=== PATIENT | female | born 1970 | race African-American/Black ===

== ENCOUNTER → 2021-03-13 13:56 | Outpatient (CLI) | payer OTHER, SELFPAY ==
--- NOTE | ~2021-03-13 | MM_ITS ---
EXAMINATION: MM screening oral BI w ana HISTORY: Screening TECHNIQUE: Craniocaudal and mediolateral oblique 3-D tomosynthesis images were obtained and synthetic 2-D images were generated. CAD analysis was submitted and interpreted. COMPARISON: No prior mammogram is available for comparison at this institution. BREAST PARENCHYMAL COMPOSITION: The breasts are heterogenously dense, which may obscure small masses. FINDINGS: There bilateral breast asymmetries centered in the upper outer quadrants. There are no suspicious calcifications or skin thickening. IMPRESSION: 1. Scattered bilateral nodular asymmetries primarily centered in the upper outer quadrants. 2. Additional mammographic views and possible breast ultrasound are recommended. BI-RADS Category 0: Incomplete: Needs additional imaging evaluation. Reviewed, dictated and finalized at location A. IMPRESSION: 1. Scattered bilateral nodular asymmetries primarily centered in the upper oute r quadrants. 2. Additional mammographic views and possible breast ultrasound are recommended . BI-RADS Category 0: Incomplete: Needs additional imaging evaluation.
== END ==
PROVIDERS: PCP Family Medicine; Visit Provider Family Medicine
DX: Z12.31 Encounter for screening mammogram for malignant neoplasm of breast (principal); R92.8 Other abnormal and inconclusive findings on diagnostic imaging of breast
CPT/HCPCS: 77063; 77067

== ENCOUNTER → 2021-04-10 08:00 | Outpatient (CLI) | payer OTHER, SELFPAY ==
--- NOTE | ~2021-04-10 | MMUS_ITS ---
EXAMINATION: MM diagnostic mammo BI, US breast BI limited HISTORY: Bilateral breast asymmetries on baseline screening mammogram TECHNIQUE: Additional 3-D tomosynthesis images of the breasts were performed and synthetic 2-D images were generated. CAD analysis was submitted and interpreted. High resolution limited bilateral breast ultrasound was performed. COMPARISON: 03/13/2021 BREAST PARENCHYMAL COMPOSITION: The breasts are heterogeneously dense, which may obscure small masses . FINDINGS: MAMMOGRAPHIC FINDINGS: Left breast: There is a 10 mm oval, obscured, equal density mass in the middle third of the outer charles ast at the 2:00 location 5 cm from the nipple. No suspicious calcification or architectural distortio n are identified. Right breast: There is no evidence of suspicious mass, calcification, or architectural distortion to suggest malignancy. ULTRASOUND: Left breast: There is an 8 mm x 4 mm oval, circumscribed, parallel, hypoechoic mass with no posterior features or internal vascularity at the 2:00 location 3 cm from the nipple. Right breast: No suspicious cystic or solid mass is identified in the area questioned on screening ma mmogram. IMPRESSION: 1. Probably benign left breast mass. 2. Recommend 6 month follow-up left diagnostic mammogram and ultrasound. BI-RADS category 3, probably benign findings. Reviewed, dictated and finalized at location A. IMPRESSION: 1. Probably benign left breast mass. 2. Recommend 6 month follow-up left diagnostic mammogram and ultrasound. BI-RADS category 3, probably benign findings.
== END ==
PROVIDERS: PCP Family Medicine; Visit Provider Family Medicine
DX: R92.8 Other abnormal and inconclusive findings on diagnostic imaging of breast (principal)
CPT/HCPCS: 76642; 77066

== ENCOUNTER 2021-04-15 14:51 | Outpatient (CLI) | payer OTHER, SELFPAY ==
[2021-04-15 15:13] LABS: Hematocrit 41.4 % (37.0-47.0); Hemoglobin 12.4 g/dL (12.0-15.0); Immature Platelet Fraction Pct 1.7 % (0.9-11.2); Mean Corpuscular Hemoglobin 22.8 pg (26-34); Platelet Count Result 369 k/mm3 (150-375); Red Blood Count 5.45 M/mm3 (4.2-5.4); White Blood Count 4.5 K/mm3 (4.5-10.0)
== END 2021-04-15 14:52 | disposition home or self-care (01) ==
LOC: ANHLAB 14:55
PROVIDERS: PCP Family Medicine; Visit Provider Obstetrics & Gynecology
DX: N93.9 Abnormal uterine and vaginal bleeding, unspecified (principal)
CPT/HCPCS: 36415; 84443; 85027; 85055

== ENCOUNTER → 2021-05-03 02:35 | Outpatient (CLI) | payer OTHER, SELFPAY ==
[2021-05-03 17:20] LABS: SARS-CoV-2 RNA PCR Negative
== END ==
PROVIDERS: PCP Family Medicine; Visit Provider Obstetrics & Gynecology
DX: Z01.812 Encounter for preprocedural laboratory examination (principal); Z20.822 Contact with and (suspected) exposure to COVID-19
CPT/HCPCS: C9803; U0003; U0005

== ENCOUNTER 2021-05-07 07:00 | Inpatient (IN) | payer OTHER, SELFPAY ==
[2021-04-30 15:49] VITALS: BMI 24.3
--- NOTE | 2021-05-03 09:59 | PM.IMHP ---
H&P: HPI History of Present Illness Date/Time: 05/03/21 09:59 Periods Q25-34 days X 7-12 days with cramping on menses and known fibroids Chief Complaint: Menorrhagia, fibroids Review of Systems Review of Systems: All systems reviewed & are unremarkable except as noted in HPI and below PMFSH Past Medical History Medical History x1 Allergic asthma Anemia Fibroids, intramural Migraine Vaginal delivery x1 Surgical History Surgical History [place] teeth extracted 2015 Family History Family History Mother Acute myocardial infarction Hypertension Asthma Heart problem Father Family history of malignant neoplasm Patient's father is Cerebrovascular accident Heart disease Hypertension Sibling Diabetes mellitus Heart problem Daughter Asthma Grandparent Diabetes mellitus Hypertension Heart problem Social History Social History Social History: Smoking status: Never smoker Second hand tobacco smoke exposure: No Alcohol intake: current Alcohol use details: seldomly 6-7 per year maybe Substance use: never Substance use type: does not use Gender identity (if verbalized by the patient): Female Spiritual care concerns: No Meds Home Medications and Allergies Home Medications Medication Instructions Recorded Confirmed Type albuterol sulfate 90 mcg/actuation 1 inh INHALATION Q4H PRN #8.5 g 02/07/21 04/30/21 Rx aerosol inhaler cetirizine 10 mg tablet 10 mg PO HS 02/07/21 04/30/21 History azelastine 137 mcg (0.1 %) nasal 137 mcg INTRANASAL Q12H PRN ml 04/15/21 04/30/21 History spray aerosol acetaminophen [Tylenol Extra 500 mg PO Q6H PRN 04/30/21 04/30/21 History Strength] ferrous sulfate [Iron (ferrous 325 mg PO BID 04/30/21 04/30/21 History sulfate)] montelukast 10 mg PO HS 04/30/21 04/30/21 History Allergies Allergy/AdvReac Type Severity Reaction Status Date / Time shellfish derived Allergy Severe Anaphylaxis Verified 04/30/21 15:38 Exam Const: General: healthy appearing, no acute distress, well developed, alert and awake Resp: Auscultation: clear to auscultation bilaterally Cardio: Rate: regular rate Rhythm: regular rhythm GI: Inspection: non-distended GI Palp: Yes Soft to palpation and No Tenderness to palpation present (GI) : Bimanual exam- vagina & uterus: uterine shape normal, non-tender, enlarged and soft Bimanual Exam- Adnexa, other: normal adnexae, no masses and No adnexal tenderness Extrem: General: no pedal edema and no calf tenderness Psych: Mental Status: mental status grossly normal Assessment and Plan Assessment and plan (1) Menorrhagia: Code(s): N92.0 - Excessive and frequent menstruation with regular cycle Status: Acute Assessment and Plan: We discussed options, and she opted and signed consent for TLH/BSO after risks, benefits, complications, and alternatives discussed. She expressed understanding and wishes to proceed (2) Leiomyoma: Code(s): D21.9 - Benign neoplasm of connective and other soft tissue, unspecified Status: Acute
[2021-05-06] VITALS (17 sets, daily range): BP systolic 99–132; BP diastolic 46–73; PULSE 55–71; RESP 14–20; TEMP 36.1–36.6; O2SAT 96–100; BMI 24.6
--- NOTE | 2021-05-06 10:58 | P.PNAN_ITS ---
Anes - Initial Pre Proc Eval Procedure: Operation Date: 05/06/21 12:00 Proposed Procedures p Total Laparoscopic Hysterectomy, with Bilateral Salpingo Oophorectomy - Opal Florence MD Date/Time: 05/06/21 10:58 Surgeon: Opal Florence MD Pre Op Diagnosis: menorrhagia, fibroids, anemia Patient Data Age: 50 Gender: F Height: 1.73 m Weight: 72.57 kg Allergies Allergy/AdvReac Type Severity Reaction Status Date / Time shellfish derived Allergy Severe Anaphylaxis Verified 04/30/21 15:38 Home Medications Medication Instructions Recorded Confirmed Type albuterol sulfate 90 mcg/actuation 1 inh INHALATION Q4H PRN #8.5 g 02/07/21 04/30/21 Rx aerosol inhaler cetirizine 10 mg tablet 10 mg PO HS 02/07/21 04/30/21 History azelastine 137 mcg (0.1 %) nasal 137 mcg INTRANASAL Q12H PRN ml 04/15/21 04/30/21 History spray aerosol acetaminophen [Tylenol Extra 500 mg PO Q6H PRN 04/30/21 04/30/21 History Strength] ferrous sulfate [Iron (ferrous 325 mg PO BID 04/30/21 04/30/21 History sulfate)] montelukast 10 mg PO HS 04/30/21 04/30/21 History Patient hx anesthesia problems: none Family hx anesthesia problems: none PMFSH Past Medical History Medical History x1 Allergic asthma Anemia Fibroids, intramural Migraine Vaginal delivery x1 Surgical History Surgical History [place] teeth extracted 2015 Family History Family History Mother Acute myocardial infarction Hypertension Asthma Heart problem Father Family history of malignant neoplasm Patient's father is Cerebrovascular accident Heart disease Hypertension Sibling Diabetes mellitus Heart problem Daughter Asthma Grandparent Diabetes mellitus Hypertension Heart problem Social History Social History Social History: Smoking status: Never smoker Second hand tobacco smoke exposure: No Alcohol intake: current Alcohol use details: seldomly 6-7 per year maybe Substance use: never Substance use type: does not use Living arrangements: with family Gender identity (if verbalized by the patient): Female Spiritual care concerns: No Anes - Eval Final PreProcedure Day of Procedure 05/06/21 10:58 Patient weight: normal Heart: regular rate and rhythm Lungs: clear to auscultation and normal air movement Airway: Mallampati scale class II Neurological: alert and oriented Last oral intake: >/= 8 hours ASA classification: II Emergent: no Anesthetic plan: proceed Anesthesia type and monitoring: general LMA and standard monitoring Informed Consent: The patient's anesthetic plan and its attendant risks and benefits were discussed with the patient/family/POA. Questions were solicited and answers provided to the satisfaction of the patient/family/POA.
[2021-05-06] MEDS: LACTATED RINGERS 1,000 ML 30 ML IV CONT ×3 (11:17→19:05)
[2021-05-06] MEDS: ACETAMINOPHEN 500 MG TABLET 1000 MG PO (11:18)
[2021-05-06] MEDS: KETOROLAC 15 MG/ML VIAL (*BKC) IV PUSH (11:18)
--- NOTE | 2021-05-06 11:40 | WPDHPUPDATE1 ---
History and Physical Update Update Date/Time: 05/06/21 11:40 History and Physical has been reviewed, including an updated exam of the patient. There are NO changes in the patient's condition. Risks, benefits, and alternatives have been discussed and questions answered. Patient agrees to proceed with procedure.
[2021-05-06] MEDS: ceFAZolin 2 GM/D5W 50 ML 2 GM/50 ML BAG IVPB (12:00)
--- NOTE | 2021-05-06 12:15 | W.PM.PROC2 ---
Procedure Note - Detailed Date of Procedure 05/06/21 Pre-op Diagnosis menorrhagia, fibroids, anemia Post-op Diagnosis other (Menorrhagia, fibroids, anemia. Intraoperative rectal injury) Procedure Performed TLH/BSO by myself, repair of bowel injury by Dr. Ferguson Surgeon Opal Florence MD Anesthesia general Indications Heavy periods and fibroid uterus, h/o anemia Findings enlarged fibroid uterus, normal tubes/ovaries Description of Procedure She was taken to the operating room where general anesthesia was obtained. She was prepared and draped in the normal sterile fashion in the dorsal lithotomy position. Marcaine was injected infraumbilically. A 5 mm skin incision was made in the infraumbilical fold with a scalpel. A 5 mm non bladed trocar was then placed with the camera in the trocar under direct visualization. Insufflation was begun. She was placed in Trendelenburg. A 10 mm trocar was then placed under direct visualization into the right lower quadrant. A 5 mm trocar was placed in the left lower quadrant under direct visualization. Inspection of the pelvis revealed the findings as noted, most significantly large globular enlarged fibroid uterus. The right infundibulopelvic ligament was grasped coagulated and transected using the Harmonic scalpel. The mesial salpinx was serially clamped and transected. The round ligament on the right was transected. The bladder flap was created from the right side. Left infundibulopelvic pelvic ligament was then grasped coagulated and transected using the Harmonic scalpel. The mesosalpinx and round ligament on the left were then grasped and transected the bladder flap was created from the left meeting the flap from the right. The bladder was pushed down further with the laparoscopic Kittner. Several bites were taken down the broad ligament until the uterus uterine artery on the left side was skeletonized. The uterine artery was clamped coagulated and transected with excellent hemostasis visualized. Another couple bites were taken down the broad ligament until the level of the uterosacral ligament had been reached. The right uterine artery was then skeletonized clamped coagulated and transected. Another couple bites were taken down the broad ligament to the level of the uterosacral ligament had been reached. Both uterosacral ligaments were then divided. A sponge stick was placed in the vagina and placed in the anterior cul-de-sac. An anterior colpotomy incision was used with the Harmonic scalpel against the sponge stick. The vagina was then circumferentially incised, hugging against the cervix. Visualization was difficult on the backside of the cervix due to the large globular uterus, which was difficult to lift out of the way. Once the uterus was completely detached from the surrounding vaginal tissue, the cervix and uterus were pushed down as far as possible into the vaginal canal. Attention was then turned to the vagina. A speculum was placed in the vagina and the cervix was grasped with a single-tooth tenaculum. I was unable to pull the uterus through the vaginal opening due to its size. The uterus was then wedged in order to reduce the size. This was done twice in and then the uterus was delivered easily through the vagina. A moist blue towel was placed in the vagina to help hold the pneumoperitoneum. Attention was then turned back to the abdomen. The pelvis was copiously irrigated. All operative sites were inspected. There was noted to be a defect and just posterior to the vaginal cuff. Upon further closer inspection, there was noted to be a full thickness injury to the rectum. Immediate call was placed to General surgery on-call. While waiting for Dr. Ferguson, the vaginal cuff was sutured using 0 Vicryl interrupted [id number] sutures. A total of 3 sutures were used for reapproximation. Dr. Ferguson arrived and then took over the surgical management of this patient at this time. See
[2021-05-06] MEDS: BUPIVACAINE/EPINEPHRINE 0.5% 30 ML VIAL 50 ML INFILTRATE (12:36)
[2021-05-06] MEDS: metroNIDAZOLE 500 MG/ISO 100ML 500 MG/100 ML BAG 100 MG IVPB (15:31)
[2021-05-06] MEDS: ceFAZolin SODIUM 1 GM VIAL 2 GM IV PUSH (16:02)
--- NOTE | 2021-05-06 17:29 | W.PM.PROC2 ---
Procedure Note - Detailed Date of Procedure 05/06/21 Pre-op Diagnosis menorrhagia, fibroids, anemia, rectal injury Post-op Diagnosis same Procedure Performed Hand assisted laparoscopic low anterior resection with low pelvic anastomosis Surgeon Karri Ferguson DO Associate Professor Of Theatre Markus Pimentel MD Anesthesia general and local Indications This is a 50-year-old woman who I was asked to see intraoperatively for a bowel injury. She was undergoing a laparoscopic hysterectomy and a rectal injury was identified by her chemical manager. I came in to evaluate patient and inspected laparoscopically and identified about a 4 cm injury along the anterior surface of the rectum. This appeared to be too small of an injury to repair primarily as it went more than group home around the entire circumference of the bowel. Decision was made to proceed with hand assisted laparoscopic low anterior resection with low pelvic anastomosis. Findings Ports were already placed and Dr. Florence had already completed the laparoscopic hysterectomy. I inspected the pelvis laparoscopically and identified a 4 cm injury the anterior surface of the rectum and could see into the lumen of the rectum. There did not appear to be any significant spillage of bowel contents or stool. The injury appeared to go more than group home around the circumference of the rectum, therefore I did not see any safe possibility for primary repair. I had to mobilize the rectum further and perform a low resection of the involved segment and perform a low pelvic colorectal anastomosis. The distal rectum appeared healthy and viable. There appeared to be about 4-6 cm of healthy rectum remaining after I was able to come across the rectum just below the injury with an echelon stapler. I did not have to resect much of the sigmoid colon as this was not for any colon pathology. But I mobilized the sigmoid colon far enough proximally to perform our resection and anastomosis. A 28 mm EEA stapler was utilized for the end-to-end anastomosis. The anastomotic rings were inspected and appeared circumferential. Rigid proctoscopy was performed and the anastomosis appeared healthy intraluminally. A leak test was then performed by filling the pelvis with saline and insufflating air into the rectum to dilate the anastomosis. No air bubbles were visualized leaking around the anastomosis. A 19 round Jack drain was placed in the pelvis through 1 of the 5 mm port sites to monitor for any signs of infection since her bowels were not prepped prior to this surgery. Description of Procedure Patient was already intubated and under general anesthesia. A 12 mm port was already placed in the right lower quadrant and another 5 mm port was in the infraumbilical region and left lower quadrant. I inspected the abdominal cavity laparoscopically and identified the rectal injury. I chose to convert to a hand assisted laparoscopic procedure. The 5 mm infraumbilical port was removed and this incision was extended inferiorly about 7 cm. Electrocautery was then used for hemostasis and for dissection down to the linea alba. The linea alba was then incised using electrocautery and the peritoneum was also entered using electrocautery. The wound protector and GelPort were then inserted and pneumoperitoneum was recreated. I did place another 5 mm port in the midline supra pubic region and another 5 mm port in the right upper quadrant. The patient was placed in Trendelenburg position and rotated to the right. The rectal injury was identified and the mesorectum was carefully dissected just posterior to this area. I carefully continued this dissection with Harmonic cami until I could dissect posteriorly far enough distal to the rectal injury. I then continued this dissection up along the side of the mesorectum and up to the healthy appearing rectum just distal to the injury. I dissected this on both sides so that I could isolate the rectum. There were also some an
--- NOTE | 2021-05-06 17:55 | SUR.PHASEI ---
CALLED DR WILLETT, 2 ORDERS, 1 STATES OB POST AND ANOTHER SAYS MED/SURG. SHE STATES PT TO GO TO OB 2D FLOOR
--- NOTE | 2021-05-06 18:08 | SUR.PHASEI ---
PT AROUSES EASILY TO VERBAL STIMULI. DENIES PAIN, DENIES NAUSEA AT THIS TIME HOB ELEVATED 30 DEGREES. MONITORING KASIA OUTPUT CLOSELY PER DR KIM INSTRUCTIONS.
[2021-05-06] MEDS: fentaNYL CITRATE INJ (*CRX) 100 MCG/2 ML VIAL 25 MCG IV PUSH ×4 (18:24→19:00)
--- NOTE | 2021-05-06 18:39 | SUR.PHASEI ---
PT AWAKENS EASILY. WAKING UP MORE NOW. STATES PAIN MILD-MODERATE. TOLERABLE. DR KIM NOTIFIED OF KASIA OUTPUT AND URINE OUTPUT AT THIS TIME.
--- NOTE | 2021-05-06 19:01 | SUR.PHASEI ---
1900; DR KIM NOTIFIED OF 35ML BLOODY DRAINAGE FROM KASIA OVER 1 HOUR.
[2021-05-06] MEDS: KETOROLAC 30 MG/ML VIAL (*BKC) IV PUSH (19:48)
[2021-05-06] MEDS: DEXTROSE 5%/LACTATED RINGERS 1,000 ML 125 ML IV CONT (19:48)
[2021-05-06] MEDS: ENOXAPARIN 40 MG/0.4 ML SYRINGE SUB-Q (21:20)
[2021-05-06] MEDS: MORPHINE SULFATE (*CRX) 4 MG/ML INJ IV PUSH (23:54)
[2021-05-06] MEDS: ONDANSETRON INJ 4 MG/2 ML VIAL IV PUSH (23:54)
[2021-05-07] VITALS: BP 104/57; PULSE 69; O2SAT 99
--- NOTE | ~2021-05-07 | CT_ITS ---
EXAMINATION: CT abdomen pelvis wo con DATE: 05/10/2021 09:48 INDICATION: Elevated serum creatinine. Status post hysterectomy. TECHNIQUE: Computed tomography (CT) of the abdomen and pelvis was performed without intravenous contr ast. Automated exposure control and iterative reconstruction technique were employed. Exam dose: 524 .25 mGy-cm total exam DLP. COMPARISON: 05/10/2021 portable KUB FINDINGS: There is bilateral lower lobe atelectasis. Minimal pleural effusions. Normal heart size. Trace pericardial effusion. The liver, gallbladder, bile ducts, spleen, pancreas, pancreatic duct and adrenal glands are unremark able on this limited noncontrast examination. No renal mass lesion is evident. No right urinary tract calculus or hydroureteronephrosis. No left urinary tract calculus is noted. There is mild left hydroureteronephrosis. There is some air within the bladder lumen. There is fluid around the urinary bladder; if there is co ncern for bladder leak, consider cystogram. Surgical drain is present in the left lower quadrant and pelvis. Status post hysterectomy. There is a suture line at the rectosigmoid area. There is a prominent amount of fecal material in the ascending colon and hepatic flexure and gaseous distention of the transverse colon. No intraperitone al free air. Normal caliber of the abdominal aorta. There is subcutaneous edema in the lower anterior pelvic wall extending into the external genitalia. Severe degenerative disc disease at L5-S1. No suspicious osteolytic or osteoblastic lesions are noted . IMPRESSION: Surgical drain in left lower quadrant and pelvis Fluid around the urinary bladder; if there is concern for bladder leak, consider cystogram Air in the urinary bladder lumen, likely due to recent instrumentation Suture line at rectosigmoid area; no bowel obstruction or intraperitoneal free air Bilateral lower lobe atelectasis and minimal pleural effusions Trace pericardial fluid Reviewed, dictated and finalized at [facility]. Reviewed, dictated and finalized at location [facility]. IMPRESSION: Surgical drain in left lower quadrant and pelvis Fluid around the urinary bladder; if there is concern for bladder leak, conside r cystogram Air in the urinary bladder lumen, likely due to recent instrumentation Suture line at rectosigmoid area; no bowel obstruction or intraperitoneal free air Bilateral lower lobe atelectasis and minimal pleural effusions Trace pericardial fluid
--- NOTE | ~2021-05-07 | CT_ITS ---
EXAMINATION: CT guide nephro tube pl LT DATE: 05/11/2021 15:11 INDICATION: Nephrostomy tube placement required for left ureteral injury. TECHNIQUE: The procedure including the risks and benefits was discussed with the patient. Risks discu ssed included bleeding and infection. The patient understood the risks and benefits and agreed to pro ceed. The patient was confirmed to be receiving appropriate antibiotic coverage. The skin overlying the left kidney was prepped and draped in usual sterile fashion. Anesthetic was administered with 1% lidocaine subcutaneously. 50 mcg of fentanyl was also provided for conscious sedation. An 18 gauge t rochar needle was inserted into a calyx of the left kidney under CT guidance. The needle was exchange d over a wire for 6 Grenadian, 8 Grenadian and 9 Grenadian dilators and then for an 8.5 Grenadian pigtail cathete r under CT guidance. The catheter was stitched to the skin. Antibiotic ointment and a sterile dressin g were applied. An additional adhesive fixation device was applied. 5 mm of mildly sanguinous urine w as aspirated and sent to the lab for Gram stain and cultures The dose-length product was 314.90 mGy-c m. There were no immediate complications. FINDINGS: CT images demonstrate the nephrostomy tube in the renal pelvis. IMPRESSION: 1. Successful CT-guided left nephrostomy tube placement]. Reviewed, dictated and finalized at location [facility].
--- NOTE | ~2021-05-07 | XR_ITS ---
EXAMINATION: XR abdomen/kub 1V DATE: 05/10/2021 08:44 INDICATION: Adynamic ileus. TECHNIQUE: A supine view of the abdomen on 2 radiographs was obtained. COMPARISON: None. FINDINGS: The colon is distended. There are dilated loops of small bowel. There is stool in the proxi mal colon. A surgical drain overlies the pelvis. IMPRESSION: 1. Dilated small and large bowel, likely postoperative adynamic ileus. Reviewed, dictated and finalized at location A.
--- NOTE | ~2021-05-07 | XR_ITS ---
EXAMINATION: XR retrograde pyelogram BI DATE: 05/10/2021 16:46 INDICATION: Ureteral injury TECHNIQUE: 145 images of the abdomen and pelvis were obtained during retrograde pyelogram performed martín Regalado. Radiologist was not present for the imaging or procedure. The amount of fluoroscopy ti me used during this procedure was 0.6 minutes. COMPARISON: None. FINDINGS: Initial image demonstrates a surgical drain in the pelvis. Retrograde contrast injections into the ri ght ureter demonstrates a normal right ureter and renal collecting system without evident filling def ects or strictures. Subsequent retrograde contrast injection into the left ureter demonstrates contra st extravasation occurring approximately 5 cm from the ureterovesicular junction with no contrast omid ling the more proximal left ureter or left renal collecting system. IMPRESSION: 1. Likely transection of the distal left ureter with contrast extravasation on retrograde urogram. Se e procedure note for further detail. Reviewed, dictated and finalized at location A. IMPRESSION: 1. Likely transection of the distal left ureter with contrast extravasation on retrograde urogram. See procedure note for further detail.
[2021-05-07] MEDS: DEXTROSE 5%/LACTATED RINGERS 1,000 ML 125 ML IV CONT (01:12)
[2021-05-07 04:00] VITALS: BP 94/56; PULSE 74; RESP 18; TEMP 36.6; O2SAT 99
[2021-05-07] MEDS: KETOROLAC 30 MG/ML VIAL (*BKC) IV PUSH (04:18)
--- NOTE | 2021-05-07 04:47 | PC.NURSE ---
Called dr Ferguson at 0436 due to low urine output, 300 ml in 9 hours, 350ml out of the KASIA drain and a decreased blood pressure of 94/56 HR 74. He stated to continue the fluids at 125ml/hour, and he will check labs in the AM to call if hgb is less than 7. Continue to monitor BP and HR and notify if any significant changes.
[2021-05-07 05:07] LABS: Basophils Absolute Auto 0.1 K/mm3 (0.0-0.1); Basophils Percent Auto 0.3 % (0.2-1.2); Eosinophils Absolute Auto 0.1 K/mm3 (0-0.3); Eosinophils Percent Auto 0.4 % (0-4.4); Hematocrit 31.6 % (37.0-47.0); Hemoglobin 10.1 g/dL (12.0-15.0); Immature Granulocyte Absolute 0.08 K/mm3 (0.00-0.031); Immature Granulocyte Percent A 0.5 % (0-0.5); Immature Platelet Fraction Pct 1.9 % (0.9-11.2); Lymphocytes Absolute Auto 0.56 K/mm3 (0.9-3.2); Lymphocytes Percent Auto 3.7 % (18.3-44.2); Mean Corpuscular Hemoglobin 25.7 pg (26-34); Mean Corpuscular Volume 80.4 fl (80-100); Monocytes Absolute Auto 0.9 K/mm3 (0.1-0.6); Monocytes Percent Auto 6.2 % (2.6-8.5); Neutrophils Absolute Auto 13.4 K/mm3 (1.3-6.7); Neutrophils Percent Auto 88.9 % (45.5-73.1); Platelet Count Result 246 k/mm3 (150-375); Red Blood Count 3.93 M/mm3 (4.2-5.4); Red Cell Distribution Width 26.9 % (11.5-14.5); White Blood Count 15.1 K/mm3 (4.5-10.0)
[2021-05-07 05:14] LABS: Anion Gap 9 mmol/L (8-16); Blood Urea Nitrogen 12 mg/dL (7-17); Calcium 8.4 mg/dL (8.4-10.2); Carbon Dioxide 23 mmol/L (22-30); Chloride 103 mmol/L (98-107); Estimated CRCL calculation 51 ml/min; Estimated Glomerular Filt Rate 58; Glucose 146 mg/dL (65-105); Potassium 4.4 mmol/L (3.4-5.0); Sodium 135 mmol/L (137-145)
[2021-05-07 06:10] LABS: Microcytosis 1+ (NORMAL); Ovalocytes 1+ (NORMAL); Platelet Estimate Adequate (Adequate)
[2021-05-07 06:11] LABS: Tear Drop Cells 1+ (NORMAL)
[2021-05-07] MEDS: MORPHINE SULFATE (*CRX) 4 MG/ML INJ IV PUSH (06:43)
[2021-05-07 06:45] VITALS: BP 102/64; PULSE 74; RESP 20; TEMP 37.2
[2021-05-07 07:30] VITALS: BP 95/52; PULSE 77; RESP 16; TEMP 37.1; O2SAT 97
--- NOTE | 2021-05-07 07:56 | WPDANESPN ---
Anes - Prog Note Post-Op Date/Time: 05/07/21 07:56 Cardiovascular status: normal Respiratory status: normal Airway patency: baseline Mental status: baseline Post-Op hydration status: normal Vital Signs: Last Vital Signs Temp 36.6 C 05/07/21 04:00 Pulse 74 05/07/21 04:00 Resp 18 05/07/21 04:00 BP 94/56 L 05/07/21 04:00 Pulse Ox 99 05/07/21 04:00 Pain Score (VAS): 0 I/O: Intake & Output 05/06/21 05/06/21 05/07/21 15:59 23:59 07:59 Intake Total 50 550 1050 Output Total 135 825 Balance 50 415 225 Laboratory Tests 05/07/21 04:04 05/07/21 04:04 05/07/21 05/07/21 04:04 04:04 WBC 15.1 H RBC 3.93 L Hgb 10.1 L Hct 31.6 L MCV 80.4 MCH 25.7 L MCHC 32.0 RDW 26.9 H Plt Count 246 MPV TNP Immature Gran % (Auto) 0.5 Neut % (Auto) 88.9 H Lymph % (Auto) 3.7 L Dillon % (Auto) 6.2 Eos % (Auto) 0.4 Baso % (Auto) 0.3 Lymph # (Auto) 0.56 L Dillon # (Auto) 0.9 H Eos # (Auto) 0.1 Baso # (Auto) 0.1 Abs Immat Gran (auto) 0.08 H Absolute Neuts (auto) 13.4 H Absolute Nucleated RBC 0.0 Nucleated RBC % 0.0 Platelet Estimate Adequate % Immature Plt Fraction 1.9 Microcytosis 1+ Tear Drop Cells 1+ Ovalocytes 1+ Sodium 135 L Potassium 4.4 Chloride 103 Carbon Dioxide 23 Anion Gap 9 BUN 12 Creatinine 1.20 H Estim Creat Clear Calc 51 Estimated GFR 58 L Glucose 146 H Calcium 8.4 Post-procedural complaints: none Patient Feedback: Patient satisfied with anesthetic care.
--- NOTE | 2021-05-07 07:59 | PM.GYNPNOP ---
SENIOR MANAGEMENT CONSULTANT - A/P Postoperative Procedures: Procedures Operation Date: 05/06/21 12:00 Actual Procedure Side Surgeon p Total Laparoscopic Hysterectomy, with Bilateral Salpingo Oophorectomy Not Applicable Opal Florence MD s Hand assist Laparoscopic Low anterior resection with low pelvic anastomosis Not Applicable Karri Ferguson DO Postoperative day: 1 (s/p hysterectomy) Postoperative status: doing well and other (Borderline urine output and slightly elevated creatinine. Continue IV fluids and repeat labs) Postoperative plan: routine post-op care and other (Appreciate input from Dr. Ferguson for advancement of diet / care for postop bowel repair and drain) Time Spent With Patient Time: Total time spent is greater than 50% in coordination of care (as documented) at patient's floor/unit and/or counseling patient: Time with patient: 15 - 25 minutes SENIOR MANAGEMENT CONSULTANT- PN:Subj Post-Op Subjective Date/time seen: 05/07/21 07:59 Subjective: patient has no complaints, pain is well controlled, patient is tolerating oral intake and other (Catheter in place. No flatus yet. Nausea last night, none since. No emesis) Exam Const: General: no acute distress Resp: Auscultation: clear to auscultation bilaterally Cardio: Rate: regular rate Rhythm: regular rhythm GI: Inspection: non-distended, incision (Intact without erythema, drainage, or induration) and other (Drain with moderate serosanguinous fluid) GI Palp: Yes abdominal tenderness (appropriate) and Yes Soft to palpation Auscultation: Hypoactive bowel sounds present Extrem: General: no edema SENIOR MANAGEMENT CONSULTANT - PN: Obj Data Vital Signs Vital Signs: Vital Signs - 24 hr 05/06/21 11:19 05/06/21 17:30 05/06/21 17:45 Temperature 36.6 C 36.2 C L 36.2 C L Pulse Rate 63 58 L 55 L Respiratory Rate 14 18 17 Blood Pressure 132/73 99/46 L 103/51 L Pulse Oximetry 100 100 100 05/06/21 18:00 05/06/21 18:15 05/06/21 18:30 Temperature 36.2 C L 36.4 C L Pulse Rate 56 L 55 L 58 L Respiratory Rate 18 16 14 Blood Pressure 100/55 L 105/53 L 105/60 Pulse Oximetry 100 100 100 05/06/21 18:45 05/06/21 19:01 05/06/21 19:16 Temperature Pulse Rate 60 58 L 60 Respiratory Rate 16 20 14 Blood Pressure 108/58 L 112/61 127/67 Pulse Oximetry 100 100 100 05/06/21 19:40 05/06/21 20:00 05/06/21 20:15 Temperature 36.1 C L 36.1 C L Pulse Rate 64 71 59 L Respiratory Rate 16 16 Blood Pressure 115/59 L 106/69 112/70 Pulse Oximetry 100 100 100 05/06/21 20:30 05/06/21 21:00 05/06/21 21:30 Temperature Pulse Rate 60 62 60 Respiratory Rate Blood Pressure 116/73 109/69 Pulse Oximetry 99 100 99 05/06/21 22:00 05/06/21 23:00 05/07/21 00:00 Temperature Pulse Rate 61 64 69 Respiratory Rate Blood Pressure 100/63 102/59 L 104/57 L Pulse Oximetry 96 98 99 05/07/21 04:00 Temperature 36.6 C Pulse Rate 74 Respiratory Rate 18 Blood Pressure 94/56 L Pulse Oximetry 99 Intake/Output Intake/Output: Intake & Output 05/04/21 05/05/21 05/06/21 05/07/21 23:59 23:59 23:59 23:59 Intake Total 600 1050 Output Total 135 825 Balance 465 225 Meds/Results Medications: Active Medications Generic Name Dose Route Start Last Admin Trade Name Freq PRN Reason Stop Dose Admin Hydrocodone Bitart/Acetaminophen 1 tab 05/06/21 19:29 Hydrocodone/Acetaminophen (*Crx) 5-325 Mg Tablet PO Q3H PRN Pain Rated 5 or Less Hydrocodone Bitart/Acetaminophen 1 tab 05/06/21 19:29 Hydrocodone/Acetaminophen (*Crx) 10-325 Mg Tablet PO Q3H PRN Pain Rated 6 or Greater Albuterol 1 puff 05/06/21 19:29 Albuterol Sulfate (*Sp) Aerosol 1 Puff INHALATION Q4H PRN shortness of breath or wheezing Azelastine HCl 1 spray 05/06/21 19:29 Azelastine Hcl Nasal 0.1% 137 Mcg/Spr 30 Ml Btl NASAL Q12H PRN seasonal allergies Docusate Sodium 100 mg 05/06/21 19:29 05/06/21 19:40 Docusate Sodium 100 Mg Capsule PO Not Given BID DESTIN Enoxaparin Sodium 40 mg
[2021-05-07] MEDS: DOCUSATE SODIUM 100 MG CAPSULE PO ×2 (08:31→17:44)
[2021-05-07] MEDS: HYDROcodone/acetaminophen (*CRX) 10-325 MG TABLET 1 TAB PO ×4 (08:31→20:28)
[2021-05-07] MEDS: ONDANSETRON INJ 4 MG/2 ML VIAL IV PUSH (08:34)
--- NOTE | 2021-05-07 09:07 | PM.PNGS ---
Progress Note: A&P Assessment and Plan (1) Rectal injury: Code(s): S36.60XA - Unspecified injury of rectum, initial encounter Status: Acute Assessment and Plan: Doing well on POD#1. Start clear liquids today. Await return of bowel function. Increase activity. Continue IV Zosyn empirically for risk of bowel contamination with unprepped bowels. Subjective Subjective Date/Time Seen: 05/07/21 09:07 Interval history: Pain controlled. No nausea or vomiting. No flatus yet. Exam GI: Inspection: non-distended, incision (intact with glue) and other (KASIA thin serosanguinous) GI Palp: Yes Soft to palpation and Yes Tenderness to palpation present (GI) (appropriate incisional) Auscultation: Hypoactive bowel sounds present Objective Data Vital Signs Vital Signs: Vital Signs - 24 hr 05/06/21 11:19 05/06/21 17:30 05/06/21 17:45 Temperature 36.6 C 36.2 C L 36.2 C L Pulse Rate 63 58 L 55 L Respiratory Rate 14 18 17 Blood Pressure 132/73 99/46 L 103/51 L Pulse Oximetry 100 100 100 05/06/21 18:00 05/06/21 18:15 05/06/21 18:30 Temperature 36.2 C L 36.4 C L Pulse Rate 56 L 55 L 58 L Respiratory Rate 18 16 14 Blood Pressure 100/55 L 105/53 L 105/60 Pulse Oximetry 100 100 100 05/06/21 18:45 05/06/21 19:01 05/06/21 19:16 Temperature Pulse Rate 60 58 L 60 Respiratory Rate 16 20 14 Blood Pressure 108/58 L 112/61 127/67 Pulse Oximetry 100 100 100 05/06/21 19:40 05/06/21 20:00 05/06/21 20:15 Temperature 36.1 C L 36.1 C L Pulse Rate 64 71 59 L Respiratory Rate 16 16 Blood Pressure 115/59 L 106/69 112/70 Pulse Oximetry 100 100 100 05/06/21 20:30 05/06/21 21:00 05/06/21 21:30 Temperature Pulse Rate 60 62 60 Respiratory Rate Blood Pressure 116/73 109/69 Pulse Oximetry 99 100 99 05/06/21 22:00 05/06/21 23:00 05/07/21 00:00 Temperature Pulse Rate 61 64 69 Respiratory Rate Blood Pressure 100/63 102/59 L 104/57 L Pulse Oximetry 96 98 99 05/07/21 04:00 05/07/21 07:30 Temperature 36.6 C 37.1 C Pulse Rate 74 77 Respiratory Rate 18 16 Blood Pressure 94/56 L 95/52 L Pulse Oximetry 99 97 Intake/Output Intake/Output: Intake & Output 05/04/21 05/05/21 05/06/21 05/07/21 23:59 23:59 23:59 23:59 Intake Total 600 1050 Output Total 135 825 Balance 465 225 Meds/Results Medications: Active Medications Generic Name Dose Route Start Last Admin Trade Name Freq PRN Reason Stop Dose Admin Hydrocodone Bitart/Acetaminophen 1 tab 05/06/21 19:29 Hydrocodone/Acetaminophen (*Crx) 5-325 Mg Tablet PO Q3H PRN Pain Rated 5 or Less Hydrocodone Bitart/Acetaminophen 1 tab 05/06/21 19:29 05/07/21 08:31 Hydrocodone/Acetaminophen (*Crx) 10-325 Mg Tablet PO 1 tab Q3H PRN Administration Pain Rated 6 or Greater Albuterol 1 puff 05/06/21 19:29 Albuterol Sulfate (*Sp) Aerosol 1 Puff INHALATION Q4H PRN shortness of breath or wheezing Azelastine HCl 1 spray 05/06/21 19:29 Azelastine Hcl Nasal 0.1% 137 Mcg/Spr 30 Ml Btl NASAL Q12H PRN seasonal allergies Docusate Sodium 100 mg 05/06/21 19:29 05/07/21 08:31 Docusate Sodium 100 Mg Capsule PO 100 mg BID DESTIN Administration Enoxaparin Sodium 40 mg 05/06/21 20:00 05/06/21 21:20 Enoxaparin 40 Mg/0.4 Ml Syringe SUB-Q 40 mg Q24H DESTIN Administration Dextrose/Lactated Ringer's 1,000 mls @ 125 mls/hr 05/06/21 19:29 05/07/21 01:12 Dextrose 5%/Lactated Ringers IV CONT 125 mls/hr .Q8H DESTIN Administration Piperacillin/Tazobactam/Dextrose 3.375 gm in 50 mls @ 100 mls/hr 05/06/21 20:00 05/07/21 08:30 Zosyn 3.375 Gm/D5w 50ml Pm IVPB 100 mls/hr Q6H DESTIN Administration Ibuprofen 600 mg 05/06/21 19:29 Ibuprofen 600 Mg Tablet PO Q6H PRN Cramping Ketorolac Tromethamine 30 mg 05/06/21 19:29 05/07/21 04:18 Ketorolac 30 Mg/Ml Vial (*Bkc) IV PUSH 05/11/21 19:30 30 mg Q6H PRN Administration Pain Rated 4-6 Loratadine 10
[2021-05-07 12:14] VITALS: BP 109/47; PULSE 64; RESP 16; TEMP 36.7; O2SAT 100
[2021-05-07] MEDS: IBUPROFEN 600 MG TABLET PO ×2 (13:28→19:48)
[2021-05-07] MEDS: ENOXAPARIN 40 MG/0.4 ML SYRINGE SUB-Q (19:46)
[2021-05-07] MEDS: MONTELUKAST SODIUM 10 MG TABLET PO (19:48)
[2021-05-07] MEDS: LORATADINE 10 MG TABLET PO (19:49)
[2021-05-07 20:00] VITALS: BP 114/71; PULSE 63; RESP 18; TEMP 36.4; O2SAT 100
[2021-05-08] MEDS: HYDROcodone/acetaminophen (*CRX) 5-325 MG TABLET 1 TAB PO ×2 (00:55→04:05)
[2021-05-08] MEDS: IBUPROFEN 600 MG TABLET PO (00:55)
[2021-05-08 02:06] VITALS: BP 102/54; PULSE 65; RESP 16; TEMP 36.9; O2SAT 100
[2021-05-08 05:50] LABS: Basophils Absolute Auto 0.1 K/mm3 (0.0-0.1); Basophils Percent Auto 0.6 % (0.2-1.2); Eosinophils Absolute Auto 0.1 K/mm3 (0-0.3); Eosinophils Percent Auto 0.7 % (0-4.4); Hematocrit 28.6 % (37.0-47.0); Hemoglobin 9.1 g/dL (12.0-15.0); Immature Granulocyte Absolute 0.06 K/mm3 (0.00-0.031); Immature Granulocyte Percent A 0.6 % (0-0.5); Immature Platelet Fraction Pct 2.4 % (0.9-11.2); Lymphocytes Absolute Auto 0.85 K/mm3 (0.9-3.2); Lymphocytes Percent Auto 8.1 % (18.3-44.2); Mean Corpuscular HGB Conc 31.8 g/dl (32-36); Mean Corpuscular Hemoglobin 25.5 pg (26-34); Mean Corpuscular Volume 80.1 fl (80-100); Monocytes Absolute Auto 0.7 K/mm3 (0.1-0.6); Monocytes Percent Auto 6.6 % (2.6-8.5); Neutrophils Absolute Auto 8.8 K/mm3 (1.3-6.7); Neutrophils Percent Auto 83.4 % (45.5-73.1); Platelet Count Result 221 k/mm3 (150-375); Red Blood Count 3.57 M/mm3 (4.2-5.4); Red Cell Distribution Width 26.6 % (11.5-14.5); White Blood Count 10.5 K/mm3 (4.5-10.0)
[2021-05-08 05:58] LABS: Anion Gap 8 mmol/L (8-16); Blood Urea Nitrogen 12 mg/dL (7-17); Calcium 8.5 mg/dL (8.4-10.2); Carbon Dioxide 24 mmol/L (22-30); Chloride 105 mmol/L (98-107); Estimated CRCL calculation 35 ml/min; Estimated Glomerular Filt Rate 36; Glucose 105 mg/dL (65-105); Potassium 3.7 mmol/L (3.4-5.0); Sodium 137 mmol/L (137-145)
--- NOTE | 2021-05-08 07:39 | PM.PNGS ---
Progress Note: A&P Assessment and Plan (1) Rectal injury: Code(s): S36.60XA - Unspecified injury of rectum, initial encounter Status: Acute Assessment and Plan: Cr up a little more today. Will start back on IV saline and hold Ibuprofen/Ketoralac. KASIA drainage has been high, but nurse reports it has tapered off overnight a bit. Will check KASIA drainage Cr level to ensure there is no chance or urine leak as a cause. Increase activity and await return of bowel function. Continue clear liquids for now. (2) Menorrhagia: Code(s): N92.0 - Excessive and frequent menstruation with regular cycle Status: Acute (3) Leiomyoma: Code(s): D21.9 - Benign neoplasm of connective and other soft tissue, unspecified Status: Acute Subjective Subjective Date/Time Seen: 05/08/21 07:39 Interval history: No flatus yet. Tolerating clear liquids. A little bloated and tender today. No nausea or vomiting. Urinating without difficulty. Exam GI: Other: Slightly distended. Bowel sounds active. Appropriate tenderness. KASIA serosanguinous. Objective Data Vital Signs Vital Signs: Vital Signs - 24 hr 05/07/21 12:14 05/07/21 20:00 05/08/21 02:06 Temperature 36.7 C 36.4 C 36.9 C Pulse Rate 64 63 65 Respiratory Rate 16 18 16 Blood Pressure 109/47 L 114/71 102/54 L Pulse Oximetry 100 100 100 Intake/Output Intake/Output: Intake & Output 05/05/21 05/06/21 05/07/21 05/08/21 23:59 23:59 23:59 23:59 Intake Total 600 3340 1010 Output Total 135 1365 325 Balance 465 3116 555 Meds/Results Medications: Active Medications Generic Name Dose Route Start Last Admin Trade Name Freq PRN Reason Stop Dose Admin Hydrocodone Bitart/Acetaminophen 1 tab 05/06/21 19:29 05/08/21 04:05 Hydrocodone/Acetaminophen (*Crx) 5-325 Mg Tablet PO 1 tab Q3H PRN Administration Pain Rated 5 or Less Hydrocodone Bitart/Acetaminophen 1 tab 05/06/21 19:29 05/07/21 20:28 Hydrocodone/Acetaminophen (*Crx) 10-325 Mg Tablet PO 1 tab Q3H PRN Administration Pain Rated 6 or Greater Albuterol 1 puff 05/06/21 19:29 Albuterol Sulfate (*Sp) Aerosol 1 Puff INHALATION Q4H PRN shortness of breath or wheezing Azelastine HCl 1 spray 05/06/21 19:29 Azelastine Hcl Nasal 0.1% 137 Mcg/Spr 30 Ml Btl NASAL Q12H PRN seasonal allergies Docusate Sodium 100 mg 05/06/21 19:29 05/07/21 17:44 Docusate Sodium 100 Mg Capsule PO 100 mg BID DESTIN Administration Enoxaparin Sodium 40 mg 05/06/21 20:00 05/07/21 19:46 Enoxaparin 40 Mg/0.4 Ml Syringe SUB-Q 40 mg Q24H DESTIN Administration Piperacillin/Tazobactam/Dextrose 3.375 gm in 50 mls @ 100 mls/hr 05/06/21 20:00 05/08/21 01:15 Zosyn 3.375 Gm/D5w 50ml Pm IVPB Infused Q6H [facility] Infusion Sodium Chloride 1,000 mls @ 100 mls/hr 05/08/21 07:35 Normal Saline Iv IV CONT .Q10H DESTIN Ibuprofen 600 mg 05/06/21 19:29 05/08/21 00:55 Ibuprofen 600 Mg Tablet PO 600 mg Q6H PRN Administration Cramping Ketorolac Tromethamine 30 mg 05/06/21 19:29 05/07/21 04:18 Ketorolac 30 Mg/Ml Vial (*Bkc) IV PUSH 05/11/21 19:30 30 mg Q6H PRN Administration Pain Rated 4-6 Loratadine 10 mg 05/06/21 21:00 05/07/21 19:49 Loratadine 10 Mg Tablet PO 10 mg HS DESTIN Administration Montelukast Sodium 10 mg 05/06/21 21:00 05/07/21 19:48 Montelukast Sodium 10 Mg Tablet PO 10 mg HS DESTIN Administration Morphine Sulfate 4 mg 05/06/21 19:29 05/07/21 06:43 Morphine Sulfate (*Crx) 4 Mg/Ml Inj IV PUSH 4 mg Q4H PRN Administration Pain Rated 7-10 Naloxone HCl 0.1 mg 05/06/21 19:29 Naloxone Hcl 0.4 Mg/Ml Vial IV PUSH Q2M PRN Respiratory rate less than 10 Ondansetron HCl 4 mg 05/06/21 19:29 05/07/21 08:34 Ondansetron Inj 4 Mg/2 Ml Vial IV PUSH 4 mg Q6H PRN Administration Nausea Labs Labs: Laboratory Results - last 24 hr 05/08/21 05/08/21 04:03
--- NOTE | 2021-05-08 07:53 | PM.GYNPNOP ---
ACCOUNTS PAYABLE COORDINATOR - A/P Assessment and plan (1) Creatinine elevation: Code(s): R79.89 - Other specified abnormal findings of blood chemistry Status: Acute Assessment and Plan: Increase IV hydration. Stop ibuprofen. Check fluid from drain for creatinine (evidence of urine), may need further evaluation for potential injury to urinary system. I discussed this possibility with Rima this morning including the potential need for further surgery if bladder, or more likely ureter, is injured. She expressed understanding and all questions answered Postoperative Procedures: Procedures Operation Date: 05/06/21 12:00 Actual Procedure Side Surgeon p Total Laparoscopic Hysterectomy, with Bilateral Salpingo Oophorectomy Not Applicable Opal Florence MD s Hand assist Laparoscopic Low anterior resection with low pelvic anastomosis Not Applicable Karri Ferguson, Postoperative day: 2 (s/p hysterectomy) Postoperative status: doing well (clinically) Postoperative plan: routine post-op care and advance diet (per Dr. Ferguson, currently tolerating clear liquids) Time Spent With Patient Time: Total time spent is greater than 50% in coordination of care (as documented) at patient's floor/unit and/or counseling patient: Time with patient: 15 - 25 minutes ACCOUNTS PAYABLE COORDINATOR- PN:Subj Post-Op Subjective Date/time seen: 05/08/21 07:53 Subjective: patient has no complaints, pain is well controlled, patient is tolerating oral intake (clear liquids without N/V) and other (No flatus yet. Voiding without problems) Exam Const: General: no acute distress Resp: Auscultation: clear to auscultation bilaterally Cardio: Rate: regular rate Rhythm: regular rhythm GI: Inspection: distended, incision (Intact without erythema, drainage, or induration) and other (moderate serosanguinous fluid in drain) GI Palp: Yes abdominal tenderness (appropriate) and Yes Soft to palpation Auscultation: normoactive bowel sounds Extrem: General: no edema ACCOUNTS PAYABLE COORDINATOR - PN: Obj Data Vital Signs Vital Signs: Vital Signs - 24 hr 05/07/21 12:14 05/07/21 20:00 05/08/21 02:06 Temperature 36.7 C 36.4 C 36.9 C Pulse Rate 64 63 65 Respiratory Rate 16 18 16 Blood Pressure 109/47 L 114/71 102/54 L Pulse Oximetry 100 100 100 Intake/Output Intake/Output: Intake & Output 07/09/1505/06/21 05/07/21 05/08/21 23:59 23:59 23:59 23:59 Intake Total 600 3340 1010 Output Total 135 4378 325 Balance 465 5180 928 Meds/Results Medications: Active Medications Generic Name Dose Route Start Last Admin Trade Name Freq PRN Reason Stop Dose Admin Hydrocodone Bitart/Acetaminophen 1 tab 05/06/21 19:29 05/08/21 04:05 Hydrocodone/Acetaminophen (*Crx) 5-325 Mg Tablet PO 1 tab Q3H PRN Administration Pain Rated 5 or Less Hydrocodone Bitart/Acetaminophen 1 tab 05/06/21 19:29 05/07/21 20:28 Hydrocodone/Acetaminophen (*Crx) 10-325 Mg Tablet PO 1 tab Q3H PRN Administration Pain Rated 6 or Greater Albuterol 1 puff 05/06/21 19:29 Albuterol Sulfate (*Sp) Aerosol 1 Puff INHALATION Q4H PRN shortness of breath or wheezing Azelastine HCl 1 spray 05/06/21 19:29 Azelastine Hcl Nasal 0.1% 137 Mcg/Spr 30 Ml Btl NASAL Q12H PRN seasonal allergies Docusate Sodium 100 mg 05/06/21 19:29 05/07/21 17:44 Docusate Sodium 100 Mg Capsule PO 100 mg BID DESTIN Administration Enoxaparin Sodium 40 mg 05/06/21 20:00 05/07/21 19:46 Enoxaparin 40 Mg/0.4 Ml Syringe SUB-Q 40 mg Q24H DESTIN Administration Piperacillin/Tazobactam/Dextrose 3.375 gm in 50 mls @ 100 mls/hr 05/06/21 20:00 05/08/21 01:15 Zosyn 3.375 Gm/D5w 50ml Pm IVPB Infused Q6H DESTIN Infusion Sodium Chloride 1,000 mls @ 100 mls/hr 05/08/21 07:35 Normal Saline Iv IV CONT .Q10H DESTIN Ibuprofen 600 mg 05/06/21 19:29 05/08/21 00:55 Ibuprofen 600 Mg Tablet PO 600 mg Q6H PRN Administration Cramping Ketorolac Tromethamine 30 mg 05/06/21 19:29 07
[2021-05-08 08:15] VITALS: BP 109/60; PULSE 88; RESP 16; TEMP 37; O2SAT 99
[2021-05-08] MEDS: SODIUM CHLORIDE 0.9% IV 1,000 ML 100 ML IV CONT ×2 (08:21→17:53)
[2021-05-08] MEDS: DOCUSATE SODIUM 100 MG CAPSULE PO ×2 (08:21→19:24)
[2021-05-08] MEDS: HYDROcodone/acetaminophen (*CRX) 10-325 MG TABLET 1 TAB PO ×3 (10:19→19:24)
[2021-05-08 12:27] VITALS: BP 109/59; PULSE 81; RESP 16; TEMP 36.9; O2SAT 99
--- NOTE | 2021-05-08 15:36 | PCCCNOTE ---
Addendum entered by BENTON Ramon 05/08/21 16:18: Sisters Kevyn and Ya phone numbers are listed in pt.'s contact information. Original Note: Care Coordination Consult: Received call from nursing that family would like to speak to a special education case manager. Met with pt. and Sukumar who reports frustration that pt.'s sisters are not able to get information regarding pt.'s status and condition. Pt. reports that she gives permission for her sister to call nursing for updates. She also requests that her sister be present via phone when she speaks with her physicians. Spoke with nursing to inform that pt. is providing verbal permission for her sister to receive medical information when she calls, nursing is aware. Pt. also aware that her sister can also participate via phone to assist with any questions while the doctor rounds with medical updates.
--- NOTE | 2021-05-08 18:00 | PC.NURSE ---
Patient requested a visit from care coordination. Radha came to see the patient and her , pt wanted to give consent for her sisters to be able to discuss her personal health information with the care team. Care coordination let her and the RN know that verbal consent is all that is needed. Pt's sister Ya called to speak to care coordination but they were already gone for the day. The RN discussed updates per the patient's request. The family is considering a transfer of care to a new physician and a new facility. The patient's Mike wants to have a face to face meeting between the family and doctors. A message was left after hours for Jonna in care coordination and she returned the call to discuss a plan for the morning. Radha from care coordination will come to see the patient again per her request after her morning meeting. This information has been passed onto the night nurse. Karolina the house painting instructor was contacted to discuss the process of a transfer. This process must be completed physician to physician and the patient does not have an accepting physician at this time. The patient would like to discuss all of this with her sisters this evening and see the doctors in the morning. RN offered to call Dr. Florence and allow the patient to speak to her over the phone but the patient declines and would prefer to speak to the doctor in the morning face to face.
[2021-05-08] MEDS: ENOXAPARIN 40 MG/0.4 ML SYRINGE SUB-Q (19:24)
[2021-05-08] MEDS: MONTELUKAST SODIUM 10 MG TABLET PO (19:24)
[2021-05-08] MEDS: LORATADINE 10 MG TABLET PO (19:24)
[2021-05-08 20:00] VITALS: BP 116/69; PULSE 89; RESP 16; TEMP 37; O2SAT 100
[2021-05-09] MEDS: HYDROcodone/acetaminophen (*CRX) 10-325 MG TABLET 1 TAB PO ×4 (03:01→19:28)
[2021-05-09] MEDS: SODIUM CHLORIDE 0.9% IV 1,000 ML 100 ML IV CONT ×2 (05:00→16:51)
[2021-05-09 07:25] VITALS: PULSE 91; RESP 16; O2SAT 100
[2021-05-09 07:40] VITALS: BP 113/71; PULSE 91; RESP 16; TEMP 37.1; O2SAT 100
[2021-05-09] MEDS: DOCUSATE SODIUM 100 MG CAPSULE PO ×2 (08:06→16:51)
[2021-05-09 08:47] LABS: Hematocrit 26.1 % (37.0-47.0); Hemoglobin 8.1 g/dL (12.0-15.0); Immature Platelet Fraction Pct 1.8 % (0.9-11.2); Mean Corpuscular Volume 80.6 fl (80-100); Mean Platelet Volume 9.6 fl (7.4-10.4); Platelet Count Result 235 k/mm3 (150-375); Red Blood Count 3.24 M/mm3 (4.2-5.4); Red Cell Distribution Width 25.9 % (11.5-14.5); White Blood Count 9.5 K/mm3 (4.5-10.0)
[2021-05-09 08:59] LABS: Anion Gap 6 mmol/L (8-16); Blood Urea Nitrogen 8 mg/dL (7-17); Calcium 8.6 mg/dL (8.4-10.2); Carbon Dioxide 25 mmol/L (22-30); Chloride 105 mmol/L (98-107); Estimated CRCL calculation 37 ml/min; Estimated Glomerular Filt Rate 39; Glucose 103 mg/dL (65-105); Potassium 3.4 mmol/L (3.4-5.0); Sodium 136 mmol/L (137-145)
--- NOTE | 2021-05-09 10:02 | PM.PNGS ---
Progress Note: A&P Assessment and Plan (1) Rectal injury: Code(s): S36.60XA - Unspecified injury of rectum, initial encounter Status: Acute Assessment and Plan: UOP improved and Cr slightly better. Continue IV fluids today and repeat labs in AM KASIA output decreased Abdomen more distended today, likely has ileus. Will start Reglan and MiraLax today. Keep on clear liquid diet until bowel function is returning. Encouraged patient to increase ambulation. Discussed plan of care with patient and her sister Ya. (2) Leiomyoma: Code(s): D21.9 - Benign neoplasm of connective and other soft tissue, unspecified Status: Acute (3) Menorrhagia: Code(s): N92.0 - Excessive and frequent menstruation with regular cycle Status: Acute Subjective Subjective Date/Time Seen: 05/09/21 10:02 Interval history: Still no Flatus or BM. Feeling bloated but no nausea or vomiting. Ambulating some. Pain mostly when getting up but otherwise controlled. Exam GI: Inspection: distended, incision (clean/dry/intact with glue) and other (KASIA drain minimal serosanguinous) GI Palp: Yes Tenderness to palpation present (GI) (incisional) Auscultation: Hypoactive bowel sounds present Objective Data Vital Signs Vital Signs: Vital Signs - 24 hr 05/08/21 12:27 05/08/21 20:00 05/09/21 07:40 Temperature 36.9 C 37.0 C 37.1 C Pulse Rate 81 89 91 Respiratory Rate 16 16 16 Blood Pressure 109/59 L 116/69 113/71 Pulse Oximetry 99 100 100 Intake/Output Intake/Output: Intake & Output 05/06/21 05/07/21 05/08/21 05/09/21 23:59 23:59 23:59 23:59 Intake Total 600 3340 3000 1610 Output Total 135 1365 1160 1825 Balance 465 1975 1840 -215 Meds/Results Medications: Active Medications Generic Name Dose Route Start Last Admin Trade Name Freq PRN Reason Stop Dose Admin Hydrocodone Bitart/Acetaminophen 1 tab 05/06/21 19:29 05/08/21 04:05 Hydrocodone/Acetaminophen (*Crx) 5-325 Mg Tablet PO 1 tab Q3H PRN Administration Pain Rated 5 or Less Hydrocodone Bitart/Acetaminophen 1 tab 05/06/21 19:29 05/09/21 08:06 Hydrocodone/Acetaminophen (*Crx) 10-325 Mg Tablet PO 1 tab Q3H PRN Administration Pain Rated 6 or Greater Albuterol 1 puff 05/06/21 19:29 Albuterol Sulfate (*Sp) Aerosol 1 Puff INHALATION Q4H PRN shortness of breath or wheezing Azelastine HCl 1 spray 05/06/21 19:29 Azelastine Hcl Nasal 0.1% 137 Mcg/Spr 30 Ml Btl NASAL Q12H PRN seasonal allergies Docusate Sodium 100 mg 05/06/21 19:29 05/09/21 08:06 Docusate Sodium 100 Mg Capsule PO 100 mg BID DESTIN Administration Enoxaparin Sodium 40 mg 05/06/21 20:00 05/08/21 19:24 Enoxaparin 40 Mg/0.4 Ml Syringe SUB-Q 40 mg Q24H DESTIN Administration Piperacillin/Tazobactam/Dextrose 3.375 gm in 50 mls @ 100 mls/hr 05/06/21 20:00 05/09/21 08:05 Zosyn 3.375 Gm/D5w 50ml Pm IVPB 100 mls/hr Q6H DESTIN Administration Sodium Chloride 1,000 mls @ 100 mls/hr 05/08/21 07:35 05/09/21 05:00 Normal Saline Iv IV CONT 100 mls/hr .Q10H DESTIN Administration Ibuprofen 600 mg 05/06/21 19:29 05/08/21 00:55 Ibuprofen 600 Mg Tablet PO 600 mg Q6H PRN Administration Cramping Ketorolac Tromethamine 30 mg 05/06/21 19:29 05/07/21 04:18 Ketorolac 30 Mg/Ml Vial (*Bkc) IV PUSH 05/11/21 19:30 30 mg Q6H PRN Administration Pain Rated 4-6 Loratadine 10 mg 05/06/21 21:00 05/08/21 19:24 Loratadine 10 Mg Tablet PO 10 mg HS DESTIN Administration Metoclopramide HCl 10 mg 05/09/21 12:00 Metoclopramide Hcl Inj 10 Mg/2 Ml Vial IV PUSH Q6HR DESTIN Montelukast Sodium 10 mg 05/06/21 21:00 05/08/21 19:24 Montelukast Sodium 10 Mg Tablet PO 10 mg HS DESTIN Administration Morphine Sulfate 4 mg 05/06/21 19:29 05/07/21 06:43 Morphine Sulfate (*Crx) 4 Mg/Ml Inj IV PUSH 4 mg Q4H PRN Administration Pain Rated 7-10 Naloxone HCl 0.1 mg 05/06/21 19:29
[2021-05-09] MEDS: polyethylene glycoL 3350 17 GM POWD.PACK PO (11:39)
[2021-05-09] MEDS: METOCLOPRAMIDE HCL INJ 10 MG/2 ML VIAL IV PUSH ×2 (12:17→18:02)
--- NOTE | 2021-05-09 12:26 | PM.GYNPNOP ---
X RAY TECH - A/P Assessment and plan (1) Creatinine elevation: Code(s): R79.89 - Other specified abnormal findings of blood chemistry Status: Acute Assessment and Plan: Creatinine 1.7 today (down from 1.8 yesterday) and urine output improved. KASIA fluid creatinine level still pending. Will continue hydration and repeat creatinine Postoperative Procedures: Procedures Operation Date: 05/06/21 12:00 Actual Procedure Side Surgeon p Total Laparoscopic Hysterectomy, with Bilateral Salpingo Oophorectomy Not Applicable Opal Florence MD s Hand assist Laparoscopic Low anterior resection with low pelvic anastomosis Not Applicable Karri Ferguson DO Postoperative day: 1 (s/p hysterectomy) Postoperative status: doing well (clinically), post-op ileus (continue IV fluids, clear liquids, frequent ambulation. She has had one dose miralax. Continue reglan. Add pepcid for GI symptoms.) and anemia (hemoglobin 8.1 today, down from 9.1 today. No signs/symptoms of anemia. Repeat CBC in the morning and continue to observe) Time Spent With Patient Time: Total time spent is greater than 50% in coordination of care (as documented) at patient's floor/unit and/or counseling patient: Time with patient: 15 - 25 minutes X RAY TECH- PN:Subj Post-Op Subjective Date/time seen: 05/09/21 12:26 Subjective: pain is well controlled, patient is tolerating oral intake (clear liquids. No nausea/vomiting) and other (Voiding without problems. No flatus. Also c/o heartburn or acid reflux) Exam Const: General: no acute distress Resp: Auscultation: clear to auscultation bilaterally Cardio: Rate: regular rate Rhythm: regular rhythm GI: Inspection: distended, incision (Intact without erythema, drainage, or induration) and other (KASIA with serosanguinous drainage) GI Palp: Yes abdominal tenderness (appropriate) and Yes Soft to palpation Extrem: General: no edema X RAY TECH - PN: Obj Data Vital Signs Vital Signs: Vital Signs - 24 hr 05/08/21 12:27 05/08/21 20:00 05/09/21 07:40 Temperature 36.9 C 37.0 C 37.1 C Pulse Rate 81 89 91 Respiratory Rate 16 16 16 Blood Pressure 109/59 L 116/69 113/71 Pulse Oximetry 99 100 100 Intake/Output Intake/Output: Intake & Output 07/12/21 07/13/21 07/14/21 07/15/21 23:59 23:59 23:59 23:59 Intake Total 600 3340 3000 1660 Output Total 135 1365 1160 1825 Balance 465 3205 1150 -834 Meds/Results Medications: Active Medications Generic Name Dose Route Start Last Admin Trade Name Freq PRN Reason Stop Dose Admin Hydrocodone Bitart/Acetaminophen 1 tab 05/06/21 19:29 05/08/21 04:05 Hydrocodone/Acetaminophen (*Crx) 5-325 Mg Tablet PO 1 tab Q3H PRN Administration Pain Rated 5 or Less Hydrocodone Bitart/Acetaminophen 1 tab 05/06/21 19:29 05/09/21 08:06 Hydrocodone/Acetaminophen (*Crx) 10-325 Mg Tablet PO 1 tab Q3H PRN Administration Pain Rated 6 or Greater Albuterol 1 puff 05/06/21 19:29 Albuterol Sulfate (*Sp) Aerosol 1 Puff INHALATION Q4H PRN shortness of breath or wheezing Azelastine HCl 1 spray 05/06/21 19:29 Azelastine Hcl Nasal 0.1% 137 Mcg/Spr 30 Ml Btl NASAL Q12H PRN seasonal allergies Docusate Sodium 100 mg 05/06/21 19:29 05/09/21 08:06 Docusate Sodium 100 Mg Capsule PO 100 mg BID DESTIN Administration Enoxaparin Sodium 40 mg 05/06/21 20:00 05/08/21 19:24 Enoxaparin 40 Mg/0.4 Ml Syringe SUB-Q 40 mg Q24H DESTIN Administration Piperacillin/Tazobactam/Dextrose 3.375 gm in 50 mls @ 100 mls/hr 05/06/21 20:00 05/09/21 08:35 Zosyn 3.375 Gm/D5w 50ml Pm IVPB Infused Q6H DESTIN Infusion Sodium Chloride 1,000 mls @ 100 mls/hr 05/08/21 07:35 05/09/21 05:00 Normal Saline Iv IV CONT 100 mls/hr .Q10H DESTIN Administration Ibuprofen 600 mg 05/06/21 19:29 05/08/21 00:55 Ibuprofen 600 Mg Tablet PO 600 mg Q6H PRN Administration Cramping Ketorolac Tromethamine 30 mg 05/06/21 19:29 05/07/21 04:18 Asha
--- NOTE | 2021-05-09 12:37 | PCCCNOTE ---
At request spoke with pt. again this morning. Pt. reports that her sister Ya no longer needs to speak with case management. Pt. and sister request to speak to OB Director regarding visiting policy. Pt. also reports that she was able to speak with nursing and physicians today with aY and feels that her questions have been answered. Pt. is interested in speaking with a patient advocate if there is further recommendations for another surgery, did inform pt. that CC would contact the patient advocate to speak with pt. Pt. also aware that it is not case management that initiates any transfers from this hospital, that if pt. and family are requesting to be transferred that it is initiated by the physicians. Encouraged pt. to speak to her physicians if that is her request.
[2021-05-09] MEDS: FAMOTIDINE 20 MG TABLET PO ×2 (13:30→19:28)
[2021-05-09] MEDS: LORATADINE 10 MG TABLET PO (19:28)
[2021-05-09] MEDS: ENOXAPARIN 40 MG/0.4 ML SYRINGE SUB-Q (19:28)
[2021-05-09] MEDS: MONTELUKAST SODIUM 10 MG TABLET PO (19:28)
[2021-05-09 20:00] VITALS: BP 130/76; PULSE 97; RESP 16; TEMP 37.2; O2SAT 100
[2021-05-10] VITALS (19 sets, daily range): BP systolic 116–148; BP diastolic 65–94; PULSE 77–120; RESP 15–31; TEMP 36.9–37.3; O2SAT 97–100
[2021-05-10] MEDS: METOCLOPRAMIDE HCL INJ 10 MG/2 ML VIAL IV PUSH ×3 (01:00→12:32)
[2021-05-10] MEDS: HYDROcodone/acetaminophen (*CRX) 10-325 MG TABLET 1 TAB PO ×4 (03:44→22:41)
[2021-05-10 04:55] LABS: Hematocrit 24.9 % (37.0-47.0); Hemoglobin 7.8 g/dL (12.0-15.0); Mean Corpuscular HGB Conc 31.3 g/dl (32-36); Mean Corpuscular Hemoglobin 25.4 pg (26-34); Mean Corpuscular Volume 81.1 fl (80-100); Mean Platelet Volume 9.6 fl (7.4-10.4); Platelet Count Result 279 k/mm3 (150-375); Red Blood Count 3.07 M/mm3 (4.2-5.4); Red Cell Distribution Width 25.4 % (11.5-14.5); White Blood Count 8.9 K/mm3 (4.5-10.0)
[2021-05-10 05:16] LABS: Anion Gap 6 mmol/L (8-16); Blood Urea Nitrogen 7 mg/dL (7-17); Calcium 8.6 mg/dL (8.4-10.2); Carbon Dioxide 25 mmol/L (22-30); Chloride 105 mmol/L (98-107); Estimated CRCL calculation 41 ml/min; Estimated Glomerular Filt Rate 45; Glucose 100 mg/dL (65-105); Potassium 3.6 mmol/L (3.4-5.0); Sodium 136 mmol/L (137-145)
--- NOTE | 2021-05-10 07:41 | PM.GYNPNOP ---
DIGITAL COURT REPORTER - A/P Assessment and plan (1) Creatinine elevation: Code(s): R79.89 - Other specified abnormal findings of blood chemistry Status: Acute Assessment and Plan: Creatinine is trending downward but still elevated. Discussed with Dr. Ferguson and will consult urology Postoperative Procedures: Procedures Operation Date: 05/06/21 12:00 Actual Procedure Side Surgeon p Total Laparoscopic Hysterectomy, with Bilateral Salpingo Oophorectomy Not Applicable Opal Florence MD s Hand assist Laparoscopic Low anterior resection with low pelvic anastomosis Not Applicable Karri Ferguson, Postoperative day: 1 (s/p hysterectomy) Postoperative status: doing well and post-op ileus (clear liquids until passing flatus. Consider abdominal Xray (appreciate continued input from Dr. Ferguson)) Postoperative plan: routine post-op care Time Spent With Patient Time: Total time spent is greater than 50% in coordination of care (as documented) at patient's floor/unit and/or counseling patient: Time with patient: less than [address] REPORTER- PN:Subj Post-Op Subjective Date/time seen: 05/10/21 07:41 Subjective: pain is well controlled, patient is tolerating oral intake (liquids. no n/V. ) and other ( Voiding without problems. no flatus. heartburn improved) Exam Const: General: no acute distress Resp: Auscultation: clear to auscultation bilaterally Cardio: Rate: regular rate Rhythm: regular rhythm GI: Inspection: distended and incision (Intact without erythema, drainage, or induration) GI Palp: Yes abdominal tenderness (appropriate) Extrem: General: no edema DIGITAL COURT REPORTER - PN: Obj Data Vital Signs Vital Signs: Vital Signs - 24 hr 05/09/21 20:00 Temperature 37.2 C Pulse Rate 97 Respiratory Rate 16 Blood Pressure 130/76 Pulse Oximetry 100 Intake/Output Intake/Output: Intake & Output 05/07/21 05/08/21 05/09/21 05/10/21 23:59 23:59 23:59 23:59 Intake Total 3340 3000 3850 860 Output Total 1365 1160 4195 1525 Balance 1974 3485 -133 -952 Meds/Results Medications: Active Medications Generic Name Dose Route Start Last Admin Trade Name Freq PRN Reason Stop Dose Admin Hydrocodone Bitart/Acetaminophen 1 tab 05/06/21 19:29 05/08/21 04:05 Hydrocodone/Acetaminophen (*Crx) 5-325 Mg Tablet PO 1 tab Q3H PRN Administration Pain Rated 5 or Less Hydrocodone Bitart/Acetaminophen 1 tab 05/06/21 19:29 05/10/21 03:44 Hydrocodone/Acetaminophen (*Crx) 10-325 Mg Tablet PO 1 tab Q3H PRN Administration Pain Rated 6 or Greater Albuterol 1 puff 05/06/21 19:29 Albuterol Sulfate (*Sp) Aerosol 1 Puff INHALATION Q4H PRN shortness of breath or wheezing Azelastine HCl 1 spray 05/06/21 19:29 Azelastine Hcl Nasal 0.1% 137 Mcg/Spr 30 Ml Btl NASAL Q12H PRN seasonal allergies Docusate Sodium 100 mg 05/06/21 19:29 05/09/21 16:51 Docusate Sodium 100 Mg Capsule PO 100 mg BID DESTIN Administration Enoxaparin Sodium 40 mg 05/06/21 20:00 05/09/21 19:28 Enoxaparin 40 Mg/0.4 Ml Syringe SUB-Q 40 mg Q24H DESTIN Administration Famotidine 20 mg 05/09/21 12:22 05/09/21 19:28 Famotidine 20 Mg Tablet PO 20 mg Q12HR DESTIN Administration Piperacillin/Tazobactam/Dextrose 3.375 gm in 50 mls @ 100 mls/hr 05/06/21 20:00 05/10/21 01:00 Zosyn 3.375 Gm/D5w 50ml Pm IVPB 100 mls/hr Q6H EDSTIN Administration Sodium Chloride 1,000 mls @ 100 mls/hr 05/08/21 07:35 05/10/21 01:01 Normal Saline Iv IV CONT Not Given .Q10H DESTIN Ibuprofen 600 mg 05/06/21 19:29 05/08/21 00:55 Ibuprofen 600 Mg Tablet PO 600 mg Q6H PRN Administration Cramping Ketorolac Tromethamine 30 mg 05/06/21 19:29 05/07/21 04:18 Ketorolac 30 Mg/Ml Vial (*Bkc) IV PUSH 05/11/21 19:30 30 mg Q6H PRN Administration Pain Rated 4-6 Loratadine 10 mg 05/06/21 21:00 05/09/21 19:28 Loratadine 10 Mg Tablet PO 10 mg HS DESTIN Administration Metoclopramide HCl 10 mg
--- NOTE | 2021-05-10 08:19 | PM.PNGS ---
Progress Note: A&P Assessment and Plan (1) Rectal injury: Code(s): S36.60XA - Unspecified injury of rectum, initial encounter Status: Acute Assessment and Plan: Still waiting on return of bowel function. On Reglan and MiraLax. Continue clears for now. Will get KUB this AM. Cr still slowly returning to normal. UOP much improved. Discussed with Dr. Florence--Urology consult and possible Nephrology consult may benefit. 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 A little bloated but tolerating clears without N/V. Pain controlled. Walked in halls 3 times yesterday. Exam GI: Inspection: distended, incision (intact with glue) and other (Serosanguinous KASIA output) GI Palp: Yes Soft to palpation and Yes Tenderness to palpation present (GI) (incisional) Auscultation: Hypoactive bowel sounds present Objective Data Vital Signs Vital Signs: Vital Signs - 24 hr 05/09/21 20:00 Temperature 37.2 C Pulse Rate 97 Respiratory Rate 16 Blood Pressure 130/76 Pulse Oximetry 100 Intake/Output Intake/Output: Intake & Output 05/07/21 05/08/21 05/09/21 05/10/21 23:59 23:59 23:59 23:59 Intake Total 3340 3000 3850 860 Output Total 1365 1160 4195 1525 Balance 1975 2810 -234 -464 Meds/Results Medications: Active Medications Generic Name Dose Route Start Last Admin Trade Name Freq PRN Reason Stop Dose Admin Hydrocodone Bitart/Acetaminophen 1 tab 05/06/21 19:29 05/08/21 04:05 Hydrocodone/Acetaminophen (*Crx) 5-325 Mg Tablet PO 1 tab Q3H PRN Administration Pain Rated 5 or Less Hydrocodone Bitart/Acetaminophen 1 tab 05/06/21 19:29 05/10/21 03:44 Hydrocodone/Acetaminophen (*Crx) 10-325 Mg Tablet PO 1 tab Q3H PRN Administration Pain Rated 6 or Greater Albuterol 1 puff 07/12/21 19:29 Albuterol Sulfate (*Sp) Aerosol 1 Puff INHALATION Q4H PRN shortness of breath or wheezing Azelastine HCl 1 spray 05/06/21 19:29 Azelastine Hcl Nasal 0.1% 137 Mcg/Spr 30 Ml Btl NASAL Q12H PRN seasonal allergies Docusate Sodium 100 mg 05/06/21 19:29 05/09/21 16:51 Docusate Sodium 100 Mg Capsule PO 100 mg BID DESTIN Administration Enoxaparin Sodium 40 mg 05/06/21 20:00 05/09/21 19:28 Enoxaparin 40 Mg/0.4 Ml Syringe SUB-Q 40 mg Q24H DESTIN Administration Famotidine 20 mg 05/09/21 12:22 05/09/21 19:28 Famotidine 20 Mg Tablet PO 20 mg Q12HR DESTIN Administration Piperacillin/Tazobactam/Dextrose 3.375 gm in 50 mls @ 100 mls/hr 05/06/21 20:00 05/10/21 01:00 Zosyn 3.375 Gm/D5w 50ml Pm IVPB 100 mls/hr Q6H DESTIN Administration Sodium Chloride 1,000 mls @ 100 mls/hr 05/08/21 07:35 05/10/21 01:01 Normal Saline Iv IV CONT Not Given .Q10H DESTIN Ibuprofen 600 mg 05/06/21 19:29 05/08/21 00:55 Ibuprofen 600 Mg Tablet PO 600 mg Q6H PRN Administration Cramping Ketorolac Tromethamine 30 mg 05/06/21 19:29 05/07/21 04:18 Ketorolac 30 Mg/Ml Vial (*Bkc) IV PUSH 05/11/21 19:30 30 mg Q6H PRN Administration Pain Rated 4-6 Loratadine 10 mg 05/06/21 21:00 05/09/21 19:28 Loratadine 10 Mg Tablet PO 10 mg HS DESTIN Administration Metoclopramide HCl 10 mg 05/09/21 12:00 05/10/21 06:02 Metoclopramide Hcl Inj 10 Mg/2 Ml Vial IV PUSH 10 mg Q6HR DESTIN Administration Montelukast Sodium 10 mg 05/06/21 21:00 05/09/21 19:28 Montelukast Sodium 10 Mg Tablet PO 10 mg HS DESTIN Administration Morphine Sulfate 4 mg 05/06/21 19:29 05/07/21 06:43 Morphine Sulfate (*Crx) 4 Mg/Ml Inj IV PUSH 4 mg Q4H PRN Administration Pain Rated 7-10 Naloxone HCl 0.1 mg 05/06/21 19:29 Naloxone Hcl 0.4 Mg/Ml Vial IV PUS
[2021-05-10] MEDS: DOCUSATE SODIUM 100 MG CAPSULE PO ×2 (09:13→20:33)
[2021-05-10] MEDS: FAMOTIDINE 20 MG TABLET PO ×2 (09:13→20:33)
[2021-05-10] MEDS: polyethylene glycoL 3350 17 GM POWD.PACK PO (09:14)
--- NOTE | 2021-05-10 09:35 | PC.NURSE ---
Down to CT w/transporter via wheelchair.
--- NOTE | 2021-05-10 11:07 | WPDURCON ---
Assessment and Plan Assessment and plan (1) Hydronephrosis, left: Code(s): N13.30 - Unspecified hydronephrosis Status: Acute Assessment and Plan: there is clinical concern for left ureteral injury. I discussed the situation with her as well as her sister. I have also informed the admitting physician of my plan. She will be taken to the operating room this afternoon for cystoscopy, bilateral retrograde pyelogram, attempted left ureteral stent placement. She understands risks of bleeding, infection, inability to place the stent. If I am unable to place the stent a nephrostomy tube may be warranted. She is in agreement with the plan. (2) Acute kidney injury: Code(s): N17.9 - Acute kidney failure, unspecified Status: Acute Urology Consult Note HPI Date Seen: 05/10/21 Requesting Physician: Opal Florence MD Primary Care Provider: Anamika Field MD Consult Narrative Narrative: Rima Mcgee is a 50 year old female Is a very pleasant female who underwent a laparoscopic hysterectomy on Thursday. It was a complicated procedure due to enlarged fibroids. A rectal injury was encountered requiring resection and primary anastomosis. She has been followed postoperatively and found have an elevated creatinine up to 1.8. I was consulted secondary to this. She denies any voiding complaints. She states she is urinating with clear urine. She denies flank pain. I did do a CT scan today which I reviewed myself. It shows mild left hydronephrosis with fluid in the pelvis. There is clinical concern for ureteral injury. Review of Systems Review of Systems: All systems reviewed & are unremarkable except as noted in HPI and below PMFSH Past Medical History Medical History (Updated 05/10/21 @ 11:10 by Olvin Regalado MD) x1 Allergic asthma Anemia Fibroids, intramural Migraine Vaginal delivery x1 Surgical History Surgical History (Updated 05/09/21 @ 11:48 by Cassandra Venegas MA) H/O total hysterectomy with bilateral salpingo-oophorectomy (BSO) 05/06/21 [place] teeth extracted 2015 Family History Family History Mother Acute myocardial infarction Hypertension Asthma Heart problem Father Family history of malignant neoplasm Patient's father is Cerebrovascular accident Heart disease Hypertension Sibling Diabetes mellitus Heart problem Daughter Asthma Grandparent Diabetes mellitus Hypertension Heart problem Social History Social History Social History: Smoking status: Never smoker Second hand tobacco smoke exposure: No Alcohol intake: current Alcohol use details: seldomly 6-7 per year maybe Substance use: never Substance use type: does not use Living arrangements: with family Gender identity (if verbalized by the patient): Female Spiritual care concerns: No Meds Home Medications and Allergies Home Medications Medication Instructions Recorded Confirmed Type albuterol sulfate 90 mcg/actuation 1 inh INHALATION Q4H PRN #8.5 g 02/07/21 04/30/21 Rx aerosol inhaler cetirizine 10 mg tablet 10 mg PO HS 02/07/21 04/30/21 History acetaminophen [Tylenol Extra 500 mg PO Q6H PRN 04/30/21 04/30/21 History Strength] ferrous sulfate [Iron (ferrous 325 mg PO BID 04/30/21 04/30/21 History sulfate)] montelukast 10 mg PO HS 04/30/21 04/30/21 History azelastine 137 mcg (0.1 %) nasal 137 mcg INTRANASAL Q12H PRN #30 ml 05/10/21 Rx spray aerosol Allergies Allergy/AdvReac Type Severity Reaction Status Date / Time shellfish derived Allergy Severe Anaphylaxis Verified 05/06/21 11:23 Vital Signs Vital Signs - 24 hr 05/09/21 20:00 Temperature 98.9 F Pulse Rate 97 Respiratory Rate 16 Blood Pressure 130/76 Pulse Oximetry 100 Exam Const: General: respiratory coordinator
--- NOTE | 2021-05-10 11:13 | WPDHPUPDATE1 ---
History and Physical Update Update Date/Time: 05/10/21 11:13 History and Physical has been reviewed, including an updated exam of the patient. There are NO changes in the patient's condition. Risks, benefits, and alternatives have been discussed and questions answered. Patient agrees to proceed with procedure.
--- NOTE | 2021-05-10 13:51 | PC.NURSE ---
0950-Return from CT via wheelchair; pt. tolerated procedure well.
--- NOTE | 2021-05-10 14:39 | WPDANESEPPF ---
Anes - Initial Pre Proc Eval Procedure: Operation Date: 05/06/21 12:00 Proposed Procedures p Total Laparoscopic Hysterectomy, with Bilateral Salpingo Oophorectomy - Opal Florence MD Operation Date: 05/10/21 16:00 Proposed Procedures p Cystoscopy, Bilateral Retrograde Pyelogram, Left Stent Placement - Olvin Regalado MD Date/Time: 05/10/21 14:39 Surgeon: Opal Florence MD Pre Op Diagnosis: menorrhagia, fibroids, anemia Patient Data Age: 50 Gender: F Height: 1.73 m Weight: 80.4 kg Last Vital Signs Temp 36.9 C 05/10/21 09:20 Pulse 93 05/10/21 09:20 Resp 20 05/10/21 09:20 BP 134/79 05/10/21 09:20 Pulse Ox 100 05/10/21 09:20 Allergies Allergy/AdvReac Type Severity Reaction Status Date / Time shellfish derived Allergy Severe Anaphylaxis Verified 05/10/21 15:26 Home Medications Medication Instructions Recorded Confirmed Type albuterol sulfate 90 mcg/actuation 1 inh INHALATION Q4H PRN #8.5 g 02/07/21 04/30/21 Rx aerosol inhaler cetirizine 10 mg tablet 10 mg PO HS 02/07/21 04/30/21 History acetaminophen [Tylenol Extra 500 mg PO Q6H PRN 04/30/21 04/30/21 History Strength] ferrous sulfate [Iron (ferrous 325 mg PO BID 04/30/21 04/30/21 History sulfate)] montelukast 10 mg PO HS 04/30/21 04/30/21 History azelastine 137 mcg (0.1 %) nasal 137 mcg INTRANASAL Q12H PRN #30 ml 05/10/21 Rx spray aerosol Laboratory Tests 05/10/21 05/10/21 03:45 03:45 WBC 8.9 K/mm3 K/mm3 (4.5-10.0) RBC 3.07 M/mm3 L M/mm3 (4.2-5.4) Hgb 7.8 g/dL L g/dL (12.0-15.0) Hct 24.9 % L % (37.0-47.0) MCV 81.1 fl fl (80-100) MCH 25.4 pg L pg (26-34) MCHC 31.3 g/dl L g/dl (32-36) RDW 25.4 % H % (11.5-14.5) Plt Count 279 k/mm3 k/mm3 (150-375) MPV 9.6 fl fl (7.4-10.4) % Immature Plt Fraction 2.0 % % (0.9-11.2) Sodium 136 mmol/L L mmol/L (137-145) Potassium 3.6 mmol/L mmol/L (3.4-5.0) Chloride 105 mmol/L mmol/L (98-107) Carbon Dioxide 25 mmol/L mmol/L (22-30) Anion Gap 6 mmol/L L mmol/L (8-16) BUN 7 mg/dL mg/dL (7-17) Creatinine 1.50 mg/dL H mg/dL (0.7-1.0) Estim Creat Clear Calc 41 ml/min ml/min Estimated GFR 45 L (59 - ) Glucose 100 mg/dL mg/dL (65-105) Calcium 8.6 mg/dL mg/dL (8.4-10.2) Patient hx anesthesia problems: none Family hx anesthesia problems: none PMFSH Past Medical History Medical History (Updated 05/10/21 @ 11:10 by Olvin Regalado MD) x1 Allergic asthma Anemia Fibroids, intramural Migraine Vaginal delivery x1 Surgical History Surgical History (Updated 05/09/21 @ 11:48 by Cassandra Venegas MA) H/O total hysterectomy with bilateral salpingo-oophorectomy (BSO) 05/06/21 [place] teeth extracted 2015 Family History Family History Mother Acute myocardial infarction Hypertension Asthma Heart problem Father Family history of malignant neoplasm Patient's father is Cerebrovascular accident Heart disease Hypertension Sibling Diabetes mellitus Heart problem Daughter Asthma Grandparent Diabetes mellitus Hypertension Heart problem Social History Social History Social History: Smoking status: Never smoker Second hand tobacco smoke exposure: No Alcohol intake: current Alcohol use details: seldomly 6-7 per year maybe Substance use: never Substance use type: does not use Living arrangements: with family Gender identity (if verbalized by the patient): Female Spiritual care concerns: No Anes - Eval Final PreProcedure Day of Procedure 05/10/21 14:39 Patient weight: overweight Heart: regular rate and rhythm Lungs: clear to auscultation and normal air movement Airway:
[2021-05-10] MEDS: LACTATED RINGERS 1,000 ML 30 ML IV CONT ×2 (15:00→16:43)
[2021-05-10] MEDS: HYDROmorphone HCL INJ (*CRX) 1 MG/ML SYR IV PUSH (15:45)
[2021-05-10] MEDS: LIDOCAINE HCL 2% GEL UROJET 10 ML PKG MUCOUS MEM (16:10)
--- NOTE | 2021-05-10 16:20 | PC.NURSE ---
1450-To OR per wheelchair with IV fluids running. Report given to Silvina.
--- NOTE | 2021-05-10 16:54 | W.PM.PROC2 ---
Procedure Note - Detailed Date of Procedure 05/10/21 Pre-op Diagnosis Hydronephrosis Post-op Diagnosis other ( left ureteral injury) Procedure Performed cystoscopy, bilateral retrograde pyelogram, left ureteroscopy Surgeon Olvin Regalado MD Anesthesia general Indications suspicion of left ureteral injury sustained during a hysterectomy Findings complete transection of the left distal ureter below the pelvic brim Description of Procedure she was correctly identified. Informed consent obtained. She from the operating room. She was given general anesthesia. She was prepped and draped in a sterile fashion. Time-out performed. Cystoscopy revealed a normal appearing bladder. There is no surgical artifact or injury to the bladder. Both ureteral orifices were normal. I did a retrograde pyelogram on the right. There is no extravasation. There is mild hydronephrosis. There is no filling defects. I then attempted a retrograde pyelogram on the left. Contrast went up about 2-3 cm and extravasated into the retroperitoneum. No dye could be seen going up the ureter. I then decided to put a ureteral scope up the ureter. I entered the ureteral orifice. I want about 3 cm up the ureter where I found the ureter be completely transected. At this point I decided to terminate the case. There was no sign of the proximal ureter. Again the left distal ureter was completely transected. Fluoroscopy images were saved. I spoke with Radiology as well as her hollow handle knife assembler. She will need a left-sided nephrostomy tube. This will be followed up by a left ureteral reimplant. She is currently several days out from surgery That included a bowel resection as well as hysterectomy. She has significant ileus from intra-abdominal urine. I do not think it would be in her best interest to have an open procedure at the current time to reimplant her ureter. Estimated Blood Loss 1 Drains No Packing No Pathology none sent Complications No immediate complications Condition stable Disposition PACU
[2021-05-10] MEDS: fentaNYL CITRATE INJ (*CRX) 100 MCG/2 ML VIAL 25 MCG IV PUSH ×2 (17:13→19:20)
--- NOTE | 2021-05-10 18:27 | SUR.PHASEI ---
1824- dressing to right lower abdominal area reinforced. linen changes made. t states that sushant and site has been leaking like that all week.
[2021-05-10] MEDS: SODIUM CHLORIDE 0.9% IV 1,000 ML 100 ML IV CONT (20:17)
[2021-05-10] MEDS: MONTELUKAST SODIUM 10 MG TABLET PO (20:29)
--- NOTE | 2021-05-10 20:44 | PC.NURSE ---
This patient, Rima Mcgee, was received from [[facility] 281/OR ] on 05/10/21 at 1999. Patient/family oriented to unit policies and routines ] Patient/family oriented to unit policies and routine
[2021-05-10] MEDS: LORATADINE 10 MG TABLET PO (20:54)
--- NOTE | 2021-05-10 20:55 | PC.NURSE ---
RN spoke on several occasions today with patient's sister/ regarding patient's condition and continued plan of care. Patient's sister stated our confidence level is not where it needs to be . The family continued to question whether or not the patient should remain on the OB floor. RN discussed this in detail with director and other doctors providing care; it was decided that a transfer of patient to a floor with a higher level of care after urology procedure would occur. Patient to be transferred to [address] [place] [address] from PACU.
[2021-05-11] VITALS (16 sets, daily range): BP systolic 123–162; BP diastolic 70–92; PULSE 73–90; RESP 16–34; TEMP 36.6–36.8; O2SAT 98–100
[2021-05-11] MEDS: HYDROcodone/acetaminophen (*CRX) 10-325 MG TABLET 1 TAB PO ×3 (04:04→23:52)
[2021-05-11] MEDS: SODIUM CHLORIDE 0.9% IV 1,000 ML 100 ML IV CONT ×2 (04:06→20:05)
[2021-05-11 05:52] LABS: INR 1.1; Prothrombin Time 13.9 Seconds (11.1-14.7)
[2021-05-11 05:55] LABS: Partial Thromboplastin Time 34.2 SECONDS (22.3-36.8)
--- NOTE | 2021-05-11 08:02 | PM.PNGS ---
Progress Note: A&P Assessment and Plan (1) Rectal injury: Code(s): S36.60XA - Unspecified injury of rectum, initial encounter Status: Acute Assessment and Plan: patient little bit distended today with some tinkling bowel sounds. Continue clear liquids since she is asymptomatic. Advised her to take liquids slowly. May be developing ileus. Ambulate later today after nephrostomy tube placed. Continue to follow closely. (2) Hydronephrosis, left: Code(s): N13.30 - Unspecified hydronephrosis Status: Acute Assessment and Plan: Nephrostomy tube to be placed today. Subjective Subjective Date/Time Seen: 05/11/21 08:02 Post Op day: 5 Patient reports: no new complaints, pain is less, tolerating liquids well and afebrile Review of Systems Review of Systems: All systems reviewed & are unremarkable except as noted in HPI and below Constitutional: Constitutional: Denies chills, Denies fever(s) and Denies headache(s) Gastrointestinal: Gastrointestinal: Reports as per HPI, Reports abdominal pain ( minimal), Denies bloating, Reports heartburn, Denies nausea and Denies vomiting Neurologic: Denies confusion and Denies headache(s) Exam Const: General: comfortable and no acute distress; No confusion Orientation/consciousness: patient oriented x3 and No confusion GI: Inspection: distended and incision ( incisions dry and healing well) GI Palp: Yes Soft to palpation, Yes Tenderness to palpation present (GI) ( mild tenderness), No Guarding due to palpation present (GI) and No Rebound tenderness present Auscultation: High-pitched bowel sounds present Neuro: General: patient oriented x3, no focal motor deficits and No confusion Extrem: General: no calf tenderness and no edema Objective Data Vital Signs Vital Signs: Vital Signs - 24 hr 05/10/21 08:30 05/10/21 09:20 05/10/21 15:29 Temperature 36.9 C 37.2 C Pulse Rate 93 93 107 H Respiratory Rate 20 20 Blood Pressure 134/79 143/87 H Pulse Oximetry 100 100 100 05/10/21 16:43 05/10/21 17:00 05/10/21 17:15 Temperature 37.3 C Pulse Rate 120 H 109 H 89 Respiratory Rate 31 H 23 H 15 Blood Pressure 125/73 137/83 135/84 Pulse Oximetry 99 98 97 05/10/21 17:30 05/10/21 17:45 05/10/21 18:00 Temperature Pulse Rate 94 93 90 Respiratory Rate 16 15 17 Blood Pressure 135/91 H 127/78 137/81 Pulse Oximetry 97 97 98 05/10/21 18:15 05/10/21 18:30 05/10/21 18:45 Temperature Pulse Rate 89 88 84 Respiratory Rate 17 16 16 Blood Pressure 129/76 133/82 140/94 H Pulse Oximetry 98 98 98 05/10/21 19:00 05/10/21 19:15 05/10/21 19:30 Temperature Pulse Rate 94 81 77 Respiratory Rate 18 15 15 Blood Pressure 116/71 122/65 128/82 Pulse Oximetry 98 98 97 05/10/21 19:44 05/10/21 20:26 05/10/21 21:00 Temperature 37.1 C 37.1 C Pulse Rate 100 93 93 Respiratory Rate 20 16 16 Blood Pressure 148/91 H 141/82 H 141/82 H Pulse Oximetry 99 98 98 05/10/21 22:39 05/11/21 02:09 05/11/21 06:08 Temperature 36.9 C 36.6 C 36.8 C Pulse Rate 81 89 79 Respiratory Rate 16 16 16 Blood Pressure 125/73 132/74 128/78 Pulse Oximetry 98 100 98 Intake/Output Intake/Output: Intake & Output 05/08/21 05/09/21 05/10/21 05/11/21 23:59 23:59 23:59 23:59 Intake Total 3000 3850 2700 1350 Output Total 1160 4195 2360 730 Balance 1840 -345 340 620 Meds/Results Medications: Active Medications Generic Name Dose Route Start Last Admin Trade Name Freq PRN Reason Stop Dose Admin Hydrocodone Bitart/Acetaminophen 1 tab 05/06/21 19:29 05/08/21 04:05 Hydrocodone/Acetaminophen (*Crx) 5-325 Mg Tablet PO 1 tab Q3H PRN Administration Pain Rated 5 or Less Hydrocodone Bitart/Acetaminophen 1 tab 05/06/21 19:29 05/11/21 04:04 Hydrocodone/Acetaminophen (*Crx) 10-325 Mg Tablet PO 1 tab Q3H PRN Administration Pain Rated 6 or Greater Albuterol 1 puff 05/06/21 19:29 Albuterol Sulfate (*Sp) Aerosol 1 Puff INHALATION
[2021-05-11] MEDS: FAMOTIDINE 20 MG TABLET PO ×2 (08:24→21:22)
--- NOTE | 2021-05-11 10:13 | PM.GYNPNOP ---
SURVEY CHIEF - A/P Assessment and plan (1) S/P hysterectomy: Code(s): Z90.710 - Acquired absence of both cervix and uterus Status: Acute Assessment and Plan: doing well from trumpet player perspective pain management PRN (2) Rectal injury: Code(s): S36.60XA - Unspecified injury of rectum, initial encounter Status: Acute Assessment and Plan: continue management per surgery continue clear liquid diet until improved bowel function encourage ambulation (3) Intraoperative ureteral injury: Code(s): N99.81 - Other intraoperative complications of genitourinary system Status: Acute Assessment and Plan: continue management per urology plan is for nephrostomy tube placement today Postoperative Procedures: Procedures Operation Date: 05/06/21 12:00 Actual Procedure Side Surgeon p Total Laparoscopic Hysterectomy, with Bilateral Salpingo Oophorectomy Not Applicable Opal Florence MD s Hand assist Laparoscopic Low anterior resection with low pelvic anastomosis Not Applicable Karri Ferguson, Operation Date: 05/10/21 16:00 Actual Procedure Side Surgeon p Cystoscopy, Bilateral Retrograde Pyelogram, diagnostic ureteroscopy Left Olvin Regalado MD Time Spent With Patient Time: Total time spent is greater than 50% in coordination of care (as documented) at patient's floor/unit and/or counseling patient: Time with patient: less than 15 minutes SURVEY CHIEF- PN:Subj Post-Op Subjective Date/time seen: 05/11/21 10:13 Patient seen at bedside. Reports feeling well this AM. Reports minimal-moderate pain, mostly left sided. States pain is reasonably controlled with medication. Denies any headache, chest pain, SOB, N/V. Tolerating PO diet. Ambulating well. Voiding well. Reports possible hematuria this AM. No flatus yet. Denies any vaginal bleeding. Exam Const: General: cooperative, comfortable and no acute distress GI: Inspection: distended GI Palp: Yes Soft to palpation and Yes Tenderness to palpation present (GI) (minimal tenderness to palpation) Auscultation: absent bowel sounds and High-pitched bowel sounds present (maybe a few) Other: all incision sites c/d/i drain in place in LLQ, approx. 20cc serosanguineous fluid noted with saturation of surrounding dressing : Other: deferred Extrem: Right lower extremity: no edema Left lower extremity: no edema Other: no calf tenderness SURVEY CHIEF - PN: Obj Data Vital Signs Vital Signs: Vital Signs - 24 hr 05/10/21 15:29 05/10/21 16:43 05/10/21 17:00 Temperature 37.2 C 37.3 C Pulse Rate 107 H 120 H 109 H Respiratory Rate 31 H 23 H Blood Pressure 143/87 H 125/73 137/83 Pulse Oximetry 100 99 98 05/10/21 17:15 05/10/21 17:30 05/10/21 17:45 Temperature Pulse Rate 89 94 93 Respiratory Rate 15 16 15 Blood Pressure 135/84 135/91 H 127/78 Pulse Oximetry 97 97 97 05/10/21 18:00 05/10/21 18:15 05/10/21 18:30 Temperature Pulse Rate 90 89 88 Respiratory Rate 17 17 16 Blood Pressure 137/81 129/76 133/82 Pulse Oximetry 98 98 98 05/10/21 18:45 05/10/21 19:00 05/10/21 19:15 Temperature Pulse Rate 84 94 81 Respiratory Rate 16 18 15 Blood Pressure 140/94 H 116/71 122/65 Pulse Oximetry 98 98 98 05/10/21 19:30 05/10/21 19:44 05/10/21 20:26 Temperature 37.1 C Pulse Rate 77 100 93 Respiratory Rate 15 20 16 Blood Pressure 128/82 148/91 H 141/82 H Pulse Oximetry 97 99 98 05/10/21 21:00 05/10/21 22:39 05/11/21 02:09 Temperature 37.1 C 36.9 C 36.6 C Pulse Rate 93 81 89 Respiratory Rate 16 16 16 Blood Pressure 141/82 H 125/73 132/74 Pulse Oximetry 98 98 100 05/11/21 06:08 Temperature 36.8 C Pulse Rate 79 Respiratory Rate 16 Blood Pressure 128/78 Pulse Oximetry 98 Intake/Output Intake/Output: Intake & Output 05/08/21 05/09/21 05/10/21 05/11/21 23:59 23:59 23:59 23:59 Intake Total 3000 3850 2700 1350 Output Total 1160 4195 2360 730 Balance 1840 -647 340 620 Meds/Results Medications: Active Medica
[2021-05-11] MEDS: HYDROcodone/acetaminophen (*CRX) 5-325 MG TABLET 1 TAB PO (11:05)
--- NOTE | 2021-05-11 11:42 | WPDANESPN ---
Anes - Prog Note Post-Op Date/Time: 05/11/21 11:42 Cardiovascular status: normal Respiratory status: normal Airway patency: baseline Mental status: baseline Post-Op hydration status: normal Vital Signs: Last Vital Signs Temp 36.8 C 05/11/21 06:08 Pulse 79 05/11/21 06:08 Resp 16 05/11/21 06:08 BP 128/78 05/11/21 06:08 Pulse Ox 98 05/11/21 06:08 Pain Score (VAS): 0 I/O: Intake & Output 05/10/21 05/11/21 05/11/21 23:59 07:59 15:59 Intake Total 450 1350 Output Total 65 730 440 Balance 385 620 -440 Laboratory Tests 05/10/21 03:45 05/10/21 03:45 05/11/21 05:07 PT 13.9 INR 1.1 APTT 34.2 Post-procedural complaints: none Patient Feedback: Patient satisfied with anesthetic care.
[2021-05-11] MEDS: LACTATED RINGERS 1,000 ML 100 ML IV CONT (14:19)
--- NOTE | 2021-05-11 16:56 | PC.NURSE ---
Patient would like to be transferred to outside facility. Dr. Bryant was called about this request due to her being the physician economic analyst for Dr. Florence. Dr. Bryant felt like that decision should be made by the patients physician and called Dr. Florence directly. I was contacted by Dr. Florence to assist in the transfer process due to Dr. Florence not being in the hospital. Patients' first choice is [facility] with [place] and [facility] as other options. Dr. Florence called all facilities to ask about transfer and contacted me with information regarding the only option being to place the patient on a wait list with [facility]. Patient and family aware of this and agreeable. Patient and family also made aware that [facility] may accept before [facility] due to her case being primarily gynecology.
--- NOTE | 2021-05-11 17:01 | WPDMODSED ---
Moderate Sedation Note-Pt Data Patient Data Allergies Allergy/AdvReac Type Severity Reaction Status Date / Time shellfish derived Allergy Severe Anaphylaxis Verified 05/10/21 15:26 Home Medications Medication Instructions Recorded Confirmed Type albuterol sulfate 90 mcg/actuation 1 inh INHALATION Q4H PRN #8.5 g 02/07/21 04/30/21 Rx aerosol inhaler cetirizine 10 mg tablet 10 mg PO HS 02/07/21 04/30/21 History acetaminophen [Tylenol Extra 500 mg PO Q6H PRN 04/30/21 04/30/21 History Strength] ferrous sulfate [Iron (ferrous 325 mg PO BID 04/30/21 04/30/21 History sulfate)] montelukast 10 mg PO HS 04/30/21 04/30/21 History azelastine 137 mcg (0.1 %) nasal 137 mcg INTRANASAL Q12H PRN #30 ml 05/10/21 Rx spray aerosol Current Medications: Active Medications Hydrocodone Bitart/Acetaminophen (Hydrocodone/Acetaminophen (*Crx) 5-325 Mg Tablet) 1 tab PO Q3H PRN PRN Reason: Pain Rated 5 or Less Last Admin: 05/11/21 11:05 Dose: 1 tab Documented by: Hydrocodone Bitart/Acetaminophen (Hydrocodone/Acetaminophen (*Crx) 10-325 Mg Tablet) 1 tab PO Q3H PRN PRN Reason: Pain Rated 6 or Greater Last Admin: 05/11/21 04:04 Dose: 1 tab Documented by: Albuterol (Albuterol Sulfate (*Sp) Aerosol 1 Puff) 1 puff INHALATION Q4H PRN PRN Reason: shortness of breath or wheezing Azelastine HCl (Azelastine Hcl Nasal 0.1% 137 Mcg/Spr 30 Ml Btl) 1 spray NASAL Q12H PRN PRN Reason: seasonal allergies Benzocaine (Benzocaine/Menthol (*Bkc) 18 Ea Lozenge) 1 lozenge PO PRN PRN PRN Reason: Sore Throat Enoxaparin Sodium (Enoxaparin 40 Mg/0.4 Ml Syringe) 40 mg SUB-Q Q24H DESTIN Last Admin: 05/10/21 20:43 Dose: Not Given Documented by: Famotidine (Famotidine 20 Mg Tablet) 20 mg PO Q12HR DESTIN Last Admin: 05/11/21 08:24 Dose: 20 mg Documented by: Piperacillin/Tazobactam/Dextrose (Zosyn 3.375 Gm/D5w 50ml Pm) 3.375 gm in 50 mls @ 100 mls/hr IVPB Q6H [facility] Last Infusion: 05/11/21 16:31 Dose: 0 mls/hr Documented by: Sodium Chloride (Normal Saline Iv) 1,000 mls @ 100 mls/hr IV CONT .Q10H [facility] Last Admin: 05/11/21 04:06 Dose: 100 mls/hr Documented by: Lactated Ringer's (Lr - Lactated Ringers Iv) 1,000 mls @ 100 mls/hr IV CONT .Q10H [facility] Last Infusion: 05/11/21 15:25 Dose: Infused Documented by: Ibuprofen (Ibuprofen 600 Mg Tablet) 600 mg PO Q6H PRN PRN Reason: Cramping Last Admin: 05/08/21 00:55 Dose: 600 mg Documented by: Ketorolac Tromethamine (Ketorolac 30 Mg/Ml Vial (*Bkc)) 30 mg IV PUSH Q6H PRN PRN Reason: Pain Rated 4-6 Stop: 05/11/21 19:30 Last Admin: 05/07/21 04:18 Dose: 30 mg Documented by: Loratadine (Loratadine 10 Mg Tablet) 10 mg PO [facility] Last Admin: 05/10/21 20:54 Dose: 10 mg Documented by: Montelukast Sodium (Montelukast Sodium 10 Mg Tablet) 10 mg PO [facility] Last Admin: 05/10/21 20:29 Dose: 10 mg Documented by: Morphine Sulfate (Morphine Sulfate (*Crx) 4 Mg/Ml Inj) 4 mg IV PUSH Q4H PRN PRN Reason: Pain Rated 7-10 Last Admin: 05/07/21 06:43 Dose: 4 mg Documented by: Naloxone HCl (Naloxone Hcl 0.4 Mg/Ml Vial) 0.1 mg IV PUSH Q2M PRN PRN Reason: Respiratory rate less than 10 Ondansetron HCl (Ondansetron Inj 4 Mg/2 Ml Vial) 4 mg IV PUSH Q6H PRN PRN Reason: Nausea Last Admin: 05/07/21 08:34 Dose: 4 mg Documented by: Sedation/Anesthesia: No previous sedation/anesthesia problems (including family history). PMFSH Past Medical History Medical History x1 Allergic asthma Anemia Fibroids, intramural Migraine Vaginal delivery x1 Surgical History Surgical History H/O total hysterectomy with bilateral salpingo-oophorectomy (BSO) 05/06/21 [place] teeth extracted 2015 Family History Family History Mother Acute myocardial infarction Hypertension Asthma Heart problem Father Family history of maligna
--- NOTE | 2021-05-11 17:10 | WPDUROPN2 ---
Progress Note: A&P Assessment and Plan (1) Intraoperative ureteral injury: Code(s): N99.81 - Other intraoperative complications of genitourinary system Status: Acute Additional Plan - The patient is currently undergoing left PCN placement by radiology. This is the appropriate step for diversion of urine. She will require delayed repair or possible nephrectomy at a later date. - Per the family's request I will order a CBC and BMP and have discussed with her nurse. - Urology will continue to follow peripherally, please contact the primary admitting service for routine orders. Lisette Mccoy MD [facility] Subjective Subjective Date/Time Seen: 05/11/21 15:10 On rounds I saw the patient who was on the CT table undergoing nephrostomy placement. I then went to the patient's room to ensure her family knew that she was stable and was doing well. Dr. Regalado reported that he had spoken to them yesterday and explained his findings in the operating room. I had a conversation regarding next steps with the patient's sister who is a nurse in [place], [place]. She expressed a desire to transfer to another facility. She asked if I would be able to order labs as daily labs had not been drawn today (except coags). I explained the urologic plan which consists of diversion with a nephrostomy for the next several months followed by delayed repair if possible. The patient's sister understands and explained that they are trying to advocate for her sister and ensure that she recovers well so that she can resume her normal life. I offered my support for their efforts. Exam Narrative: Exam Narrative: I was unable to examine the patient as she was sedated on the CT table. Objective Data Vital Signs Vital Signs: Vital Signs - 24 hr 05/10/21 17:15 05/10/21 17:30 05/10/21 17:45 Temperature Pulse Rate 89 94 93 Respiratory Rate 15 16 15 Blood Pressure 135/84 135/91 H 127/78 Pulse Oximetry 97 97 97 05/10/21 18:00 05/10/21 18:15 05/10/21 18:30 Temperature Pulse Rate 90 89 88 Respiratory Rate 17 17 16 Blood Pressure 137/81 129/76 133/82 Pulse Oximetry 98 98 98 05/10/21 18:45 05/10/21 19:00 05/10/21 19:15 Temperature Pulse Rate 84 94 81 Respiratory Rate 16 18 15 Blood Pressure 140/94 H 116/71 122/65 Pulse Oximetry 98 98 98 05/10/21 19:30 05/10/21 19:44 05/10/21 20:26 Temperature 98.7 F Pulse Rate 77 100 93 Respiratory Rate 15 20 16 Blood Pressure 128/82 148/91 H 141/82 H Pulse Oximetry 97 99 98 05/10/21 21:00 05/10/21 22:39 05/11/21 02:09 Temperature 98.7 F 98.5 F 97.9 F Pulse Rate 93 81 89 Respiratory Rate 16 16 16 Blood Pressure 141/82 H 125/73 132/74 Pulse Oximetry 98 98 100 05/11/21 06:08 05/11/21 12:00 05/11/21 13:49 Temperature 98.2 F 98.1 F Pulse Rate 79 74 Respiratory Rate 16 24 H Blood Pressure 128/78 123/71 Pulse Oximetry 98 100 98 05/11/21 14:07 05/11/21 14:39 05/11/21 14:44 Temperature Pulse Rate 84 87 87 Respiratory Rate 18 27 H 22 H Blood Pressure 144/81 H 148/92 H 147/82 H Pulse Oximetry 100 100 100 05/11/21 14:49 05/11/21 14:54 05/11/21 14:59 Temperature Pulse Rate 90 76 77 Respiratory Rate 32 H 34 H 22 H Blood Pressure 141/83 H 136/85 139/86 Pulse Oximetry 100 100 100 05/11/21 15:04 05/11/21 15:09 05/11/21 15:14 Temperature Pulse Rate 79 74 76 Respiratory Rate 33 H 33 H 22 H Blood Pressure 144/83 H 139/78 137/81 Pulse Oximetry 100 100 100 05/11/21 15:19 05/11/21 15:24 Temperature Pulse Rate 73 78 Respiratory Rate 20 23 H Blood Pressure 162/90 H 131/80 Pulse Oximetry 100 100 Intake/Output Intake/Output: Intake & Output 05/08/21 05/09/21 05/10/21 05/11/21 23:59 23:59 23:59 23:59 Intake Total 3000 3850 2700 1400 Output Total 1160 4195 2360 1170 Balance 1840 -345 340 230 Meds/Results Medications: Active Medications Generic Name Dose Route Start Last Admin Trade Name Freq PRN Reason Stop Dose Admin Hydrocodone Bi
[2021-05-11] MEDS: BENZOCAINE/MENTHOL (*BKC) 18 EA LOZENGE 1 LOZENGE PO ×3 (17:29→23:53)
[2021-05-11 17:45] LABS: Hematocrit 27.2 % (37.0-47.0); Hemoglobin 8.5 g/dL (12.0-15.0); Mean Corpuscular HGB Conc 31.3 g/dl (32-36); Mean Corpuscular Hemoglobin 25.1 pg (26-34); Mean Corpuscular Volume 80.2 fl (80-100); Mean Platelet Volume 8.6 fl (7.4-10.4); Platelet Count Result 350 k/mm3 (150-375); Red Blood Count 3.39 M/mm3 (4.2-5.4); Red Cell Distribution Width 24.8 % (11.5-14.5); White Blood Count 6.8 K/mm3 (4.5-10.0)
[2021-05-11 17:54] LABS: Anion Gap 4 mmol/L (8-16); Blood Urea Nitrogen 5 mg/dL (7-17); Calcium 8.4 mg/dL (8.4-10.2); Carbon Dioxide 26 mmol/L (22-30); Chloride 108 mmol/L (98-107); Estimated CRCL calculation 61 ml/min; Estimated Glomerular Filt Rate > 60; Glucose 98 mg/dL (65-110); Potassium 3.4 mmol/L (3.4-5.0); Sodium 138 mmol/L (137-145)
[2021-05-11] MEDS: MONTELUKAST SODIUM 10 MG TABLET PO (20:07)
[2021-05-11] MEDS: LORATADINE 10 MG TABLET PO (21:22)
[2021-05-11] MEDS: ENOXAPARIN 40 MG/0.4 ML SYRINGE SUB-Q (21:22)
[2021-05-12 02:03] VITALS: BP 109/61; PULSE 73; RESP 16; TEMP 36.4; O2SAT 99
[2021-05-12] MEDS: HYDROcodone/acetaminophen (*CRX) 10-325 MG TABLET 1 TAB PO (04:26)
[2021-05-12 05:54] LABS: Hematocrit 26.2 % (37.0-47.0); Hemoglobin 8.2 g/dL (12.0-15.0); Mean Corpuscular HGB Conc 31.3 g/dl (32-36); Mean Corpuscular Hemoglobin 25.2 pg (26-34); Mean Corpuscular Volume 80.6 fl (80-100); Platelet Count Result 356 k/mm3 (150-375); Red Blood Count 3.25 M/mm3 (4.2-5.4); Red Cell Distribution Width 24.6 % (11.5-14.5); White Blood Count 7.1 K/mm3 (4.5-10.0)
[2021-05-12 06:00] VITALS: BP 124/64; PULSE 72; RESP 16; TEMP 36.6; O2SAT 99
[2021-05-12 06:08] LABS: Anion Gap 4 mmol/L (8-16); Blood Urea Nitrogen 5 mg/dL (7-17); Calcium 8.6 mg/dL (8.4-10.2); Carbon Dioxide 25 mmol/L (22-30); Chloride 108 mmol/L (98-107); Estimated CRCL calculation 67 ml/min; Estimated Glomerular Filt Rate > 60; Glucose 83 mg/dL (65-110); Potassium 3.5 mmol/L (3.4-5.0); Sodium 137 mmol/L (137-145)
[2021-05-12] MEDS: SODIUM CHLORIDE 0.9% IV 1,000 ML 100 ML IV CONT (06:57)
--- NOTE | 2021-05-12 09:09 | PM.GYNPNOP ---
[employer] - A/P Assessment and plan (1) S/P hysterectomy: Code(s): Z90.710 - Acquired absence of both cervix and uterus Status: Acute Assessment and Plan: doing well from spring manufacturing set up technician perspective pain medication PRN encourage ambulation primary spring manufacturing set up technician surgeon notified that patient and family have questions and concerns, plan is for primary spring manufacturing set up technician surgeon to have phone conversation with patient and family this AM (2) Intraoperative ureteral injury: Code(s): N99.81 - Other intraoperative complications of genitourinary system Status: Acute Assessment and Plan: s/p left nephrostomy tube placement yesterday nephrostomy tube draining well continue management per urology (3) Rectal injury: Code(s): S36.60XA - Unspecified injury of rectum, initial encounter Status: Acute Assessment and Plan: patient still with abdominal distension she is, however, passing gas and denies N/V continue recommendations per surgery to increase ambulation and decrease clear fluid intake until ileus resolves appreciate surgery management Postoperative Procedures: Procedures Operation Date: 05/06/21 12:00 Actual Procedure Side Surgeon p Total Laparoscopic Hysterectomy, with Bilateral Salpingo Oophorectomy Not Applicable Opal Florence MD s Hand assist Laparoscopic Low anterior resection with low pelvic anastomosis Not Applicable Karri Ferguson DO Operation Date: 05/10/21 16:00 Actual Procedure Side Surgeon p Cystoscopy, Bilateral Retrograde Pyelogram, diagnostic ureteroscopy Left Olvin Regalado MD Operation Date: 05/11/21 14:00 Actual Procedure Side Surgeon p Radiology Procedure Moderate Sedation RN Tim Toth MD Time Spent With Patient Time: Total time spent is greater than 50% in coordination of care (as documented) at patient's floor/unit and/or counseling patient: Time with patient: less than 15 minutes [employer]- PN:Subj Post-Op Subjective Date/time seen: 05/12/21 09:09 Patient seen at bedside. Reports mild pain. States that pain yesterday and overnight was likely due to nephrostomy tube placement, however, pain and discomfort this morning feels more like gas pain. Denies any headache, chest pain, shortness of breath, nausea, or vomiting. Has been tolerating clear liquids. Reports passing minimal flatus since earlier this morning. Ambulating well. Voiding without difficulty. Denies any vaginal bleeding. Exam Const: General: cooperative, comfortable and no acute distress GI: Inspection: distended GI Palp: Yes Soft to palpation and Yes Tenderness to palpation present (GI) (minimal tenderness to palpation) Other: incisions c/d/i; nephrostomy tube in place and appears to be draining well with large amount of blood tinged urine in collection bag; pelvic drain also in place with approx. 10cc serosanguineous fluid in bulb, gauze around drain moderately saturated Extrem: Right lower extremity: no edema Left lower extremity: no edema Other: no calf tenderness [employer] - PN: Obj Data Vital Signs Vital Signs: Vital Signs - 24 hr 05/11/21 12:00 05/11/21 13:49 05/11/21 14:07 Temperature 36.7 C Pulse Rate 74 84 Respiratory Rate 24 H 18 Blood Pressure 123/71 144/81 H Pulse Oximetry 100 98 100 05/11/21 14:39 05/11/21 14:44 05/11/21 14:49 Temperature Pulse Rate 87 87 90 Respiratory Rate 27 H 22 H 32 H Blood Pressure 148/92 H 147/82 H 141/83 H Pulse Oximetry 100 100 100 05/11/21 14:54 05/11/21 14:59 05/11/21 15:04 Temperature Pulse Rate 76 77 79 Respiratory Rate 34 H 22 H 33 H Blood Pressure 136/85 139/86 144/83 H Pulse Oximetry 100 100 100 05/11/21 15:09 05/11/21 15:14 05/11/21 15:19 Temperature Pulse Rate 74 76 73 Respiratory Rate 33 H 22 H 20 Blood Pressure 139/78 137/81 162/90 H Pulse Oximetry 100 100 100 05/11/21 15:24 05/11/21 23:44 05/12/21 02:03 Temperature 36.6 C 36.4 C Pulse Rate 78 77 73 Respiratory Rate 23 H 16 16 Blood Pressure 131/8
[2021-05-12] MEDS: FAMOTIDINE 20 MG TABLET PO ×2 (09:13→20:12)
--- NOTE | 2021-05-12 10:20 | PM.PNGS ---
Progress Note: A&P Assessment and Plan (1) Rectal injury: Code(s): S36.60XA - Unspecified injury of rectum, initial encounter Status: Acute Assessment and Plan: minimal appropriate abdominal pain, white blood cell count down to normal and creatinine down to normal. Patient is, however, more distended today than yesterday. She is not having any nausea or heartburn. She does not have much of an appetite. I discussed this with the patient, her sister, and her . I think she has an ileus and may need an NG tube. For now, we will keep the clear liquids to a minimum and increase her ambulation. If nausea or heartburn, will need NG tube. Hopefully will resolve with increased ambulation. Will check serum creatinine on KASIA drain fluid. If suggestive of residual urine, will leave in a bit longer. Discussed with Dr. Bryant, covering for Dr. Florence. (2) Intraoperative ureteral injury: Code(s): N99.81 - Other intraoperative complications of genitourinary system Status: Acute Assessment and Plan: Nephrostomy tube placed and draining well. (3) S/P hysterectomy: Code(s): Z90.710 - Acquired absence of both cervix and uterus Status: Acute Subjective Subjective Date/Time Seen: 05/12/21 10:20 Post Op day: #6 Patient reports: no new complaints, pain is less, flatus, no bowel movement and afebrile Review of Systems Review of Systems: All systems reviewed & are unremarkable except as noted in HPI and below Constitutional: Constitutional: Denies chills, Denies fever(s), Denies headache(s) and Reports poor appetite Cardiovascular: Cardiovascular: Denies chest pain and Denies dyspnea Respiratory: Respiratory: Denies cough and Denies dyspnea Gastrointestinal: Gastrointestinal: Reports as per HPI, Reports abdominal pain, Denies bloating, Denies GI cramping, Denies heartburn, Denies nausea and Denies vomiting Exam Const: General: comfortable and no acute distress; No confusion Orientation/consciousness: patient oriented x3 and No confusion GI: Inspection: distended, incision ( Incisions all healing well) and other ( more distended than yesterday) GI Palp: Yes Soft to palpation, Yes Tenderness to palpation present (GI) ( mild, appropriate tenderness), No Guarding due to palpation present (GI) and No Rebound tenderness present Auscultation: High-pitched bowel sounds present ( bowel sounds present but tinkling, somewhat high-pitched) Neuro: General: patient oriented x3, no focal motor deficits and No confusion Extrem: General: no calf tenderness and no edema Psych: Affect: normal affect Insight: Good insight present (Psych) Judgement: Good judgement present (Psych) Objective Data Vital Signs Vital Signs: Vital Signs - 24 hr 05/11/21 12:00 05/11/21 13:49 05/11/21 14:07 Temperature 36.7 C Pulse Rate 74 84 Respiratory Rate 24 H 18 Blood Pressure 123/71 144/81 H Pulse Oximetry 100 98 100 05/11/21 14:39 05/11/21 14:44 05/11/21 14:49 Temperature Pulse Rate 87 87 90 Respiratory Rate 27 H 22 H 32 H Blood Pressure 148/92 H 147/82 H 141/83 H Pulse Oximetry 100 100 100 05/11/21 14:54 05/11/21 14:59 05/11/21 15:04 Temperature Pulse Rate 76 77 79 Respiratory Rate 34 H 22 H 33 H Blood Pressure 136/85 139/86 144/83 H Pulse Oximetry 100 100 100 05/11/21 15:09 05/11/21 15:14 05/11/21 15:19 Temperature Pulse Rate 74 76 73 Respiratory Rate 33 H 22 H 20 Blood Pressure 139/78 137/81 162/90 H Pulse Oximetry 100 100 100 05/11/21 15:24 05/11/21 23:44 05/12/21 02:03 Temperature 36.6 C 36.4 C Pulse Rate 78 77 73 Respiratory Rate 23 H 16 16 Blood Pressure 131/80 123/70 109/61 Pulse Oximetry 100 99 99 05/12/21 06:00 Temperature 36.6 C Pulse Rate 72 Respiratory Rate 16 Blood Pressure 124/64 Pulse Oximetry 99 Intake/Output Intake/Output: Intake & Output 05/09/21 05/10/21 05/11/21 05/12/21 23:59 23:59 23:59 23:59 Intake Total 3850 2700 2
[2021-05-12] MEDS: KCL 40 MEQ/0.9% SOD CHL 1,000 ML 60 ML IV CONT (10:29)
[2021-05-12 12:00] VITALS: BP 131/70; PULSE 72; RESP 20; TEMP 36.8; O2SAT 100
[2021-05-12 18:00] VITALS: BP 121/56; PULSE 77; RESP 24; TEMP 36.8; O2SAT 100
[2021-05-12] MEDS: SIMETHICONE 125 MG CHEW TAB PO (18:24)
--- NOTE | 2021-05-12 18:59 | WPDUROPN2 ---
Progress Note: A&P Assessment and Plan (1) Intraoperative ureteral injury: Code(s): N99.81 - Other intraoperative complications of genitourinary system Status: Acute Assessment and Plan: Ms. Mcgee reports she is feeling significantly better. Agree with Creatinine Trend labs. Maintain PCN. Remaining care per primary service. Subjective Subjective Date/Time Seen: 05/12/21 18:59 Ms. Mcgee reports she is feeling better, has some gas pain and soreness from her nephrestomy but otherwise denies complaint. Exam Const: General: cooperative, healthy appearing, comfortable, no acute distress, well developed, alert, awake and Physically active; No acute distress Resp: Effort & Inspection: normal respiratory effort, able to speak in complete sentences, normal respiratory pattern and no audible wheezes Cardio: Jugular venous distension: no JVD Rhythm: regular rhythm GI: Inspection: normal to inspection (KASIA with s/s output, PCN with clear yellow urine present.) Psych: Appearance: grossly normal and well kempt Mental Status: mental status grossly normal Speech and movement: Normal speech and movement present Objective Data Vital Signs Vital Signs: Vital Signs - 24 hr 05/11/21 23:44 05/12/21 02:03 05/12/21 06:00 Temperature 97.8 F 97.6 F 97.8 F Pulse Rate 77 73 72 Respiratory Rate 16 16 16 Blood Pressure 123/70 109/61 124/64 Pulse Oximetry 99 99 99 05/12/21 12:00 05/12/21 18:00 Temperature 98.3 F 98.3 F Pulse Rate 72 77 Respiratory Rate 20 24 H Blood Pressure 131/70 121/56 L Pulse Oximetry 100 100 Intake/Output Intake/Output: Intake & Output 05/09/21 05/10/21 05/11/21 05/12/21 23:59 23:59 23:59 23:59 Intake Total 3850 2700 2860 2060 Output Total 4195 2360 2550 4115 Balance -345 340 310 -2056 Meds/Results Medications: Active Medications Generic Name Dose Route Start Last Admin Trade Name Freq PRN Reason Stop Dose Admin Hydrocodone Bitart/Acetaminophen 1 tab 05/06/21 19:29 05/11/21 11:05 Hydrocodone/Acetaminophen (*Crx) 5-325 Mg Tablet PO 1 tab Q3H PRN Administration Pain Rated 5 or Less Hydrocodone Bitart/Acetaminophen 1 tab 07/12/21 19:29 05/12/21 04:26 Hydrocodone/Acetaminophen (*Crx) 10-325 Mg Tablet PO 1 tab Q3H PRN Administration Pain Rated 6 or Greater Albuterol 1 puff 05/06/21 19:29 Albuterol Sulfate (*Sp) Aerosol 1 Puff INHALATION Q4H PRN shortness of breath or wheezing Azelastine HCl 1 spray 05/06/21 19:29 Azelastine Hcl Nasal 0.1% 137 Mcg/Spr 30 Ml Btl NASAL Q12H PRN seasonal allergies Benzocaine 1 lozenge 05/11/21 16:54 05/11/21 23:53 Benzocaine/Menthol (*Bkc) 18 Ea Lozenge PO 1 lozenge PRN PRN Administration Sore Throat Enoxaparin Sodium 40 mg 05/06/21 20:00 05/11/21 21:22 Enoxaparin 40 Mg/0.4 Ml Syringe SUB-Q 40 mg Q24H DESTIN Administration Famotidine 20 mg 05/09/21 12:22 05/12/21 09:13 Famotidine 20 Mg Tablet PO 20 mg Q12HR DESTIN Administration Piperacillin/Tazobactam/Dextrose 3.375 gm in 50 mls @ 100 mls/hr 05/06/21 20:00 05/12/21 16:56 Zosyn 3.375 Gm/D5w 50ml Pm IVPB Infused Q6H DESTIN Infusion Potassium Chloride/Sodium Chloride 1,000 mls @ 60 mls/hr 05/12/21 08:00 05/12/21 10:29 Kcl 40 Meq/Ns IV CONT 60 mls/hr .[id number] DESTIN Administration Ibuprofen 800 mg in 200 mls @ 400 mls/hr 05/12/21 17:58 Caldolor 800 Mg/200 Ml IVPB Q6H PRN Pain Rated 4-6 Ibuprofen 600 mg 05/06/21 19:29 05/08/21 00:55 Ibuprofen 600 Mg Tablet PO 600 mg Q6H PRN Administration Cramping Loratadine 10 mg 05/06/21 21:00 05/11/21 21:22 Loratadine 10 Mg Tablet PO 10 mg HS DESTIN Administration Montelukast Sodium 10 mg 05/06/21 21:00 05/11/21 20:07 Montelukast Sodium 10 Mg Tablet PO 10 mg HS DESTIN Administration Morphine Sulfate 4 mg 05/06/21 19:29 05/07/21 06:43 Morphine Sulfate (*Crx) 4 Mg/Ml Inj IV PUSH 4 mg Q4H
[2021-05-12] MEDS: IBUPROFEN IV 800 MG/200 ML 800 MG/200 ML BAG 400 MG IVPB (19:41)
[2021-05-12] MEDS: LORATADINE 10 MG TABLET PO (20:10)
[2021-05-12] MEDS: ENOXAPARIN 40 MG/0.4 ML SYRINGE SUB-Q (20:12)
[2021-05-12] MEDS: MONTELUKAST SODIUM 10 MG TABLET PO (20:12)
[2021-05-12 23:16] VITALS: BP 122/58; PULSE 72; RESP 16; TEMP 36.6; O2SAT 100
[2021-05-13] MEDS: HYDROcodone/acetaminophen (*CRX) 5-325 MG TABLET 1 TAB PO (01:55)
[2021-05-13 02:33] VITALS: BP 131/74; PULSE 72; RESP 16; TEMP 36.6; O2SAT 100
[2021-05-13 05:47] LABS: Hematocrit 29.2 % (37.0-47.0); Hemoglobin 9.5 g/dL (12.0-15.0); Mean Corpuscular HGB Conc 32.5 g/dl (32-36); Mean Corpuscular Hemoglobin 25.2 pg (26-34); Mean Corpuscular Volume 77.5 fl (80-100); Platelet Count Result 493 k/mm3 (150-375); Red Blood Count 3.77 M/mm3 (4.2-5.4); White Blood Count 10.3 K/mm3 (4.5-10.0)
[2021-05-13] MEDS: KCL 40 MEQ/0.9% SOD CHL 1,000 ML 60 ML IV CONT (05:55)
[2021-05-13 05:58] VITALS: BP 121/68; PULSE 72; RESP 16; TEMP 36.4; O2SAT 99
[2021-05-13 05:59] LABS: Anion Gap 7 mmol/L (8-16); Blood Urea Nitrogen 4 mg/dL (7-17); Carbon Dioxide 24 mmol/L (22-30); Chloride 106 mmol/L (98-107); Estimated CRCL calculation 75 ml/min; Estimated Glomerular Filt Rate > 60; Glucose 86 mg/dL (65-110); Potassium 3.9 mmol/L (3.4-5.0); Sodium 137 mmol/L (137-145)
[2021-05-13] MEDS: SIMETHICONE 125 MG CHEW TAB PO ×4 (07:25→19:47)
--- NOTE | 2021-05-13 07:55 | PM.GYNPNOP ---
YIELD LOSS INSPECTOR - A/P Assessment and plan (1) Ileus following gastrointestinal surgery: Code(s): K91.89 - Other postprocedural complications and disorders of digestive system; K56.7 - Ileus, unspecified Status: Acute Assessment and Plan: Tolerating clear liquids, passing flatus. Consider advancing diet but will defer to general surgery whose continued input is appreciated (2) Intraoperative ureteral injury: Code(s): N99.81 - Other intraoperative complications of genitourinary system Status: Acute Assessment and Plan: Nephrostomy tubes in place, so will be discharged home with those with plan to repair ureter in 3-4 months per urology. Appreciate continued urology input Postoperative Procedures: Procedures Operation Date: 05/06/21 12:00 Actual Procedure Side Surgeon p Total Laparoscopic Hysterectomy, with Bilateral Salpingo Oophorectomy Not Applicable Opal Florence MD s Hand assist Laparoscopic Low anterior resection with low pelvic anastomosis Not Applicable Karri Ferguson DO Operation Date: 05/10/21 16:00 Actual Procedure Side Surgeon p Cystoscopy, Bilateral Retrograde Pyelogram, diagnostic ureteroscopy Left Olvin Regalado MD Operation Date: 05/11/21 14:00 Actual Procedure Side Surgeon p Radiology Procedure Moderate Sedation RN Tim Toth MD Postoperative day: 7 (s/p hysterectomy) Postoperative status: post-op ileus (improving, consider advancing diet per general surgery) Postoperative plan: routine post-op care and ambulate Time Spent With Patient Time: Total time spent is greater than 50% in coordination of care (as documented) at patient's floor/unit and/or counseling patient: Time with patient: 15 - 25 minutes YIELD LOSS INSPECTOR- PN:Subj Post-Op Subjective Date/time seen: 05/13/21 07:55 Subjective: pain is well controlled (pain at nephrostomy tube sites and gas pain, all improved with medication), patient is tolerating oral intake and other (Tolerating clear liquid diet. No nausea/vomiting, appetite decreased. + flatus. c/o gas pains. Voiding without problems) Exam Const: General: no acute distress Resp: Auscultation: clear to auscultation bilaterally Cardio: Rate: regular rate Rhythm: regular rhythm GI: Inspection: distended and incision (Intact without erythema, drainage, or induration) GI Palp: Yes abdominal tenderness (appropriate) and Yes Soft to palpation Auscultation: Hypoactive bowel sounds present Extrem: General: no calf tenderness and no edema YIELD LOSS INSPECTOR - PN: Obj Data Vital Signs Vital Signs: Vital Signs - 24 hr 05/12/21 12:00 05/12/21 18:00 05/12/21 23:16 Temperature 36.8 C 36.8 C 36.6 C Pulse Rate 72 77 72 Respiratory Rate 20 24 H 16 Blood Pressure 131/70 121/56 L 122/58 L Pulse Oximetry 100 100 100 05/13/21 02:33 05/13/21 05:58 Temperature 36.6 C 36.4 C L Pulse Rate 72 72 Respiratory Rate 16 16 Blood Pressure 131/74 121/68 Pulse Oximetry 100 99 Intake/Output Intake/Output: Intake & Output 05/10/21 05/11/21 05/12/21 05/13/21 23:59 23:59 23:59 23:59 Intake Total 2700 2860 2310 1350 Output Total 2360 2550 4115 1550 Balance 340 310 -1805 -200 Meds/Results Medications: Active Medications Generic Name Dose Route Start Last Admin Trade Name Freq PRN Reason Stop Dose Admin Hydrocodone Bitart/Acetaminophen 1 tab 05/06/21 19:29 05/13/21 01:55 Hydrocodone/Acetaminophen (*Crx) 5-325 Mg Tablet PO 1 tab Q3H PRN Administration Pain Rated 5 or Less Hydrocodone Bitart/Acetaminophen 1 tab 05/06/21 19:29 05/12/21 04:26 Hydrocodone/Acetaminophen (*Crx) 10-325 Mg Tablet PO 1 tab Q3H PRN Administration Pain Rated 6 or Greater Albuterol 1 puff 05/06/21 19:29 Albuterol Sulfate (*Sp) Aerosol 1 Puff INHALATION Q4H PRN shortness of breath or wheezing Azelastine HCl 1 spray 05/06/21 19:29 Azelastine Hcl Nasal 0.1% 137 Mcg/Spr 30 Ml Btl NASAL Q12H PRN seasonal allergies Benzocaine 1 lozen
[2021-05-13] MEDS: FAMOTIDINE 20 MG TABLET PO ×2 (09:48→21:10)
--- NOTE | 2021-05-13 11:02 | PM.PNGS ---
Progress Note: A&P Assessment and Plan (1) Ileus following gastrointestinal surgery: Code(s): K91.89 - Other postprocedural complications and disorders of digestive system; K56.7 - Ileus, unspecified Status: Acute Assessment and Plan: Seems to be improving. Continue small amounts of clear liquids today continue ambulation as she did yesterday. Probably tomorrow can start advancing diet. (2) Rectal injury: Qualifiers: Encounter type: subsequent encounter Qualified Code(s): S36.60XD - Unspecified injury of rectum, subsequent encounter Code(s): S36.60XA - Unspecified injury of rectum, initial encounter Status: Acute Assessment and Plan: White blood cell count up to 10,300 today. In all other aspects patient looks better. Will follow. Tolerating liquids and improving aside from ileus as noted above. (3) S/P hysterectomy: Code(s): Z90.710 - Acquired absence of both cervix and uterus Status: Acute (4) Intraoperative ureteral injury: Code(s): N99.81 - Other intraoperative complications of genitourinary system Status: Acute Subjective Subjective Date/Time Seen: 05/13/21 11:02 Post Op day: 5 Patient reports: no new complaints, feels better, still having pain ( having some gas pains), tolerating liquids well, flatus and no bowel movement Interval history: patient did a lot of walking yesterday. Overall feels good but still some gas pains. No bowel movement but is passing gas. No nausea. Review of Systems Review of Systems: All systems reviewed & are unremarkable except as noted in HPI and below Constitutional: Constitutional: Denies body ache(s), Denies chills, Denies fever(s) and Denies headache(s) Gastrointestinal: Gastrointestinal: Reports as per HPI, Denies dyspepsia, Denies heartburn, Denies nausea and Denies vomiting Neurologic: Denies confusion and Denies headache(s) Exam Const: General: comfortable and no acute distress; No confusion Orientation/consciousness: patient oriented x3 and No confusion GI: Inspection: distended and other ( Less distended than yesterday) GI Palp: Yes Soft to palpation, Yes Tenderness to palpation present (GI) ( minimal tenderness), No Guarding due to palpation present (GI) and No Rebound tenderness present Auscultation: normal bowel sounds ( more normal bowel sounds, not high-pitched or tinkling today.) Neuro: General: patient oriented x3, no focal motor deficits and No confusion Extrem: General: no calf tenderness and no edema Psych: Affect: normal affect Insight: Good insight present (Psych) Judgement: Good judgement present (Psych) Objective Data Vital Signs Vital Signs: Vital Signs - 24 hr 05/12/21 12:00 05/12/21 18:00 05/12/21 23:16 Temperature 36.8 C 36.8 C 36.6 C Pulse Rate 72 77 72 Respiratory Rate 20 24 H 16 Blood Pressure 131/70 121/56 L 122/58 L Pulse Oximetry 100 100 100 05/13/21 02:33 05/13/21 05:58 Temperature 36.6 C 36.4 C L Pulse Rate 72 72 Respiratory Rate 16 16 Blood Pressure 131/74 121/68 Pulse Oximetry 100 99 Intake/Output Intake/Output: Intake & Output 05/10/21 05/11/21 05/12/21 05/13/21 23:59 23:59 23:59 23:59 Intake Total 2700 2860 2310 1530 Output Total 2360 2550 4115 1550 Balance 340 310 -2575 -20 Meds/Results Medications: Active Medications Generic Name Dose Route Start Last Admin Trade Name Freq PRN Reason Stop Dose Admin Hydrocodone Bitart/Acetaminophen 1 tab 05/06/21 19:29 05/13/21 01:55 Hydrocodone/Acetaminophen (*Crx) 5-325 Mg Tablet PO 1 tab Q3H PRN Administration Pain Rated 5 or Less Hydrocodone Bitart/Acetaminophen 1 tab 05/06/21 19:29 05/12/21 04:26 Hydrocodone/Acetaminophen (*Crx) 10-325 Mg Tablet PO 1 tab Q3H PRN Administration Pain Rated 6 or Greater Albuterol 1 puff 05/06/21 19:29 Albuterol Sulfate (*Sp) Aerosol 1 Puff INHALATION Q4H PRN shortness of breath or wheezing Azelastin
--- NOTE | 2021-05-13 11:36 | WPDUROPN2 ---
Progress Note: A&P Assessment and Plan (1) Intraoperative ureteral injury: Code(s): N99.81 - Other intraoperative complications of genitourinary system Status: Acute Assessment and Plan: percutaneous nephrostomy tube is in place. I had a long conversation with her and her sister. She will need her left ureter to be reimplanted. I would wait at least 4 months to do so. This could probably be done laparoscopically/robotically. Of course open conversion is a risk as is nephrectomy. She is researching where she would like to have this procedure done. I offered her my services and we could do the surgery at [facility]. She Is also researching physicians at [place]. Either way her nephrostomy tube will need to be changed in 3 months. She will also likely need a retrograde/ antegrade pyelogram and exam under anesthesia as a form of surgical planning. At this point we will not see her on a daily basis while she is in-house. please call with questions. (2) Hydronephrosis, left: Code(s): N13.30 - Unspecified hydronephrosis Status: Acute Subjective Subjective Date/Time Seen: 05/13/21 11:36 I spoke with her today as well as her sister. Her nephrostomy tube was in place that is draining well. She is feeling improved. I outlined The plan. Exam Const: General: cooperative and healthy appearing Nutritional Appearance: average body habitus HENMT: Head: normal to inspection Eyes: General: appearance normal, both eyes and all related structures Resp: Effort & Inspection: normal respiratory effort and able to speak in complete sentences GI: Inspection: normal to inspection Other: nephrostomy tube in place. Urine is clear Skin: General skin exam: normal color Objective Data Vital Signs Vital Signs: Vital Signs - 24 hr 05/12/21 12:00 05/12/21 18:00 05/12/21 23:16 Temperature 98.3 F 98.3 F 97.9 F Pulse Rate 72 77 72 Respiratory Rate 20 24 H 16 Blood Pressure 131/70 121/56 L 122/58 L Pulse Oximetry 100 100 100 05/13/21 02:33 05/13/21 05:58 Temperature 97.9 F 97.5 F L Pulse Rate 72 72 Respiratory Rate 16 16 Blood Pressure 131/74 121/68 Pulse Oximetry 100 99 Intake/Output Intake/Output: Intake & Output 07/16/21 07/17/21 07/18/21 07/19/21 23:59 23:59 23:59 23:59 Intake Total 2700 2860 2310 1530 Output Total 2360 2550 4115 1550 Balance 340 970 -0065 -25 Meds/Results Medications: Active Medications Generic Name Dose Route Start Last Admin Trade Name Freq PRN Reason Stop Dose Admin Hydrocodone Bitart/Acetaminophen 1 tab 05/06/21 19:29 05/13/21 01:55 Hydrocodone/Acetaminophen (*Crx) 5-325 Mg Tablet PO 1 tab Q3H PRN Administration Pain Rated 5 or Less Hydrocodone Bitart/Acetaminophen 1 tab 05/06/21 19:29 05/12/21 04:26 Hydrocodone/Acetaminophen (*Crx) 10-325 Mg Tablet PO 1 tab Q3H PRN Administration Pain Rated 6 or Greater Albuterol 1 puff 05/06/21 19:29 Albuterol Sulfate (*Sp) Aerosol 1 Puff INHALATION Q4H PRN shortness of breath or wheezing Azelastine HCl 1 spray 05/06/21 19:29 Azelastine Hcl Nasal 0.1% 137 Mcg/Spr 30 Ml Btl NASAL Q12H PRN seasonal allergies Benzocaine 1 lozenge 05/11/21 16:54 05/11/21 23:53 Benzocaine/Menthol (*Bkc) 18 Ea Lozenge PO 1 lozenge PRN PRN Administration Sore Throat Enoxaparin Sodium 40 mg 05/06/21 20:00 05/12/21 20:12 Enoxaparin 40 Mg/0.4 Ml Syringe SUB-Q 40 mg Q24H DESTIN Administration Famotidine 20 mg 05/09/21 12:22 05/13/21 09:48 Famotidine 20 Mg Tablet PO 20 mg Q12HR DESTIN Administration Piperacillin/Tazobactam/Dextrose 3.375 gm in 50 mls @ 100 mls/hr 05/06/21 20:00 05/13/21 09:47 Zosyn 3.375 Gm/D5w 50ml Pm IVPB 100 mls/hr Q6H DESTIN Administration Potassium Chloride/Sodium Chloride 1,000 mls @ 60 mls/hr 05/12/21 08:00 05/13/21 05:55 Kcl 40 Meq/Ns IV CONT 60 mls/hr .[id number] DESTIN Administration Ibuprofen
[2021-05-13 12:24] LABS: Creatinine Urine < 3.2 mg/dL
[2021-05-13] MEDS: IBUPROFEN IV 800 MG/200 ML 800 MG/200 ML BAG 400 MG IVPB (13:15)
[2021-05-13 14:00] VITALS: BP 123/71; PULSE 70; RESP 16; TEMP 36.8; O2SAT 100
[2021-05-13] MEDS: LORATADINE 10 MG TABLET PO (21:10)
[2021-05-13] MEDS: MONTELUKAST SODIUM 10 MG TABLET PO (21:10)
[2021-05-13] MEDS: ENOXAPARIN 40 MG/0.4 ML SYRINGE SUB-Q (21:10)
[2021-05-13 22:00] VITALS: BP 130/73; PULSE 68; RESP 16; TEMP 36.6; O2SAT 100
[2021-05-13] MEDS: IBUPROFEN IV 800 MG/200 ML 800 MG/200 ML BAG 200 MG IVPB (22:06)
[2021-05-14] MEDS: KCL 40 MEQ/0.9% SOD CHL 1,000 ML 60 ML IV CONT (02:16)
[2021-05-14 05:00] VITALS: BP 122/68; PULSE 70; RESP 18; TEMP 36.6; O2SAT 100
[2021-05-14 05:39] LABS: Hematocrit 27.5 % (37.0-47.0); Hemoglobin 8.8 g/dL (12.0-15.0); Mean Corpuscular Hemoglobin 24.7 pg (26-34); Mean Corpuscular Volume 77.2 fl (80-100); Mean Platelet Volume 8.8 fl (7.4-10.4); Platelet Count Result 483 k/mm3 (150-375); Red Blood Count 3.56 M/mm3 (4.2-5.4); Red Cell Distribution Width 23.7 % (11.5-14.5); White Blood Count 7.4 K/mm3 (4.5-10.0)
[2021-05-14 05:58] LABS: Blood Urea Nitrogen 5 mg/dL (7-17); Calcium 8.9 mg/dL (8.4-10.2); Carbon Dioxide 24 mmol/L (22-30); Estimated CRCL calculation 75 ml/min; Estimated Glomerular Filt Rate > 60; Glucose 81 mg/dL (65-110)
[2021-05-14] MEDS: SIMETHICONE 125 MG CHEW TAB PO ×3 (06:25→21:19)
[2021-05-14 06:26] LABS: Anion Gap 9 mmol/L (8-16); Chloride 104 mmol/L (98-107); Potassium 3.8 mmol/L (3.4-5.0); Sodium 137 mmol/L (137-145)
--- NOTE | 2021-05-14 07:43 | PM.GYNPNOP ---
RESEARCH AIDE - A/P Assessment and plan (1) Ileus following gastrointestinal surgery: Code(s): K91.89 - Other postprocedural complications and disorders of digestive system; K56.7 - Ileus, unspecified Status: Acute Assessment and Plan: Ileus clinically improving, advance to full liquids per general surgery. Appreciate continue surgery input (2) Intraoperative ureteral injury: Code(s): N99.81 - Other intraoperative complications of genitourinary system Status: Acute Assessment and Plan: Creatinine remains normal s/p nephrostomy tube placement. Plan to discharge home with tubes and urology follow up for ureteral repair in a few months. Appreciate continued urology input Postoperative Procedures: Procedures Operation Date: 05/06/21 12:00 Actual Procedure Side Surgeon p Total Laparoscopic Hysterectomy, with Bilateral Salpingo Oophorectomy Not Applicable Opal Florence MD s Hand assist Laparoscopic Low anterior resection with low pelvic anastomosis Not Applicable Karri Ferguson, Operation Date: 05/10/21 16:00 Actual Procedure Side Surgeon p Cystoscopy, Bilateral Retrograde Pyelogram, diagnostic ureteroscopy Left Olvin Regalado MD Operation Date: 05/11/21 14:00 Actual Procedure Side Surgeon p Radiology Procedure Moderate Sedation RN Tim Toth MD Postoperative day: 8 (s/p hysterectomy) Postoperative status: doing well and post-op ileus (improving, advance to full liquids today) Postoperative plan: routine post-op care and advance diet Time Spent With Patient Time: Total time spent is greater than 50% in coordination of care (as documented) at patient's floor/unit and/or counseling patient: Time with patient: less than 15 minutes RESEARCH AIDE- PN:Subj Post-Op Subjective Date/time seen: 05/14/21 07:43 Subjective: patient reports feeling better, patient has no complaints, pain is well controlled, patient is tolerating oral intake and other (Tolerating clear liquid diet, feels hungry this morning. + flatus and had one loose BM. Voiding without problems) Exam Const: General: no acute distress Resp: Auscultation: clear to auscultation bilaterally Cardio: Rate: regular rate Rhythm: regular rhythm GI: Inspection: non-distended and incision (Intact without erythema, drainage, or induration) GI Palp: Yes abdominal tenderness (appropriate) and Yes Soft to palpation Auscultation: normoactive bowel sounds Extrem: General: no edema RESEARCH AIDE - PN: Obj Data Vital Signs Vital Signs: Vital Signs - 24 hr 05/13/21 14:00 05/13/21 22:00 05/14/21 05:00 Temperature 36.8 C 36.6 C 36.6 C Pulse Rate 70 68 70 Respiratory Rate 16 16 18 Blood Pressure 123/71 130/73 122/68 Pulse Oximetry 100 100 100 Intake/Output Intake/Output: Intake & Output 05/11/21 05/12/21 05/13/21 05/14/21 23:59 23:59 23:59 23:59 Intake Total 2860 2310 3580 150 Output Total 2550 4115 3260 1940 Balance 310 -1805 320 -1790 Meds/Results Medications: Active Medications Generic Name Dose Route Start Last Admin Trade Name Freq PRN Reason Stop Dose Admin Hydrocodone Bitart/Acetaminophen 1 tab 05/06/21 19:29 05/13/21 01:55 Hydrocodone/Acetaminophen (*Crx) 5-325 Mg Tablet PO 1 tab Q3H PRN Administration Pain Rated 5 or Less Hydrocodone Bitart/Acetaminophen 1 tab 05/06/21 19:29 05/12/21 04:26 Hydrocodone/Acetaminophen (*Crx) 10-325 Mg Tablet PO 1 tab Q3H PRN Administration Pain Rated 6 or Greater Albuterol 1 puff 05/06/21 19:29 Albuterol Sulfate (*Sp) Aerosol 1 Puff INHALATION Q4H PRN shortness of breath or wheezing Azelastine HCl 1 spray 05/06/21 19:29 Azelastine Hcl Nasal 0.1% 137 Mcg/Spr 30 Ml Btl NASAL Q12H PRN seasonal allergies Benzocaine 1 lozenge 05/11/21 16:54 05/11/21 23:53 Benzocaine/Menthol (*Bkc) 18 Ea Lozenge PO 1 lozenge PRN PRN Administration Sore Throat Enoxaparin Sodium 40 mg 05/06/21 20:00 05/13/21 21:10 Enoxap
[2021-05-14] MEDS: FAMOTIDINE 20 MG TABLET PO ×2 (08:51→21:17)
--- NOTE | 2021-05-14 11:00 | PM.PNGS ---
Progress Note: A&P Assessment and Plan (1) Ileus following gastrointestinal surgery: Code(s): K91.89 - Other postprocedural complications and disorders of digestive system; K56.7 - Ileus, unspecified Status: Acute Assessment and Plan: Seems to be resolving. Bowels are moving and she is tolerating clear liquids. Will advance her to full liquids today. Encouraged her to continue to increase activity and walk the halls. (2) Rectal injury: Qualifiers: Encounter type: subsequent encounter Qualified Code(s): S36.60XD - Unspecified injury of rectum, subsequent encounter Code(s): S36.60XA - Unspecified injury of rectum, initial encounter Status: Acute Assessment and Plan: WBC down to normal today, remains afebrile. Seems to be overall improving. Pain is well-controlled. Start advancing her diet and increasing activity. (3) S/P hysterectomy: Code(s): Z90.710 - Acquired absence of both cervix and uterus Status: Acute (4) Intraoperative ureteral injury: Code(s): N99.81 - Other intraoperative complications of genitourinary system Status: Acute Assessment and Plan: Left nephrostomy tube draining well. Urology following. Additional Plan I have discussed the plan of care with Dr. Jenkins. Subjective Subjective Date/Time Seen: 05/14/21 10:00 Post Op day: 8 Patient reports: feels better, pain is less, tolerating liquids well, flatus, bowel movement and afebrile Interval history: Patient doing well today. Tolerating clear liquids without nausea, vomiting, or bloating. Feels that her abdominal pain has improved. No other complaints. Walking the halls and tolerating this well. Review of Systems Review of Systems: All systems reviewed & are unremarkable except as noted in HPI and below Constitutional: Constitutional: Reports as per HPI, Reports no additional constitutional complaints, Denies chills and Denies fever(s) Cardiovascular: Cardiovascular: Reports no additional cardiovascular complaints, Denies chest pain and Denies leg edema Respiratory: Respiratory: Reports no additional respiratory complaints, Denies cough and Denies dyspnea Gastrointestinal: Gastrointestinal: Reports as per HPI and Reports no additional gastrointestinal complaints Neurologic: Reports system reviewed and no additional complaints, except as documented, Denies Abnormal speech present and Denies focal weakness Exam Const: General: comfortable, no acute distress, alert and awake Orientation/consciousness: patient oriented x3 GI: Inspection: incision (Abdominal incisions clean and dry) and other (mildly distended) GI Palp: Yes Soft to palpation and Yes Tenderness to palpation present (GI) (incisional, minimal) Auscultation: normal bowel sounds Other: KASIA drain with yellow pink drainage Urinary Catheter: Urinary Catheter: other (Left nephrostomy tube draining yellow urine) Neuro: General: moves all extremities and no focal motor deficits Extrem: General: no clubbing, cyanosis or edema and no calf tenderness Psych: Insight: Good insight present (Psych) Judgement: Good judgement present (Psych) Objective Data Vital Signs Vital Signs: Vital Signs - 24 hr 05/13/21 14:00 05/13/21 22:00 05/14/21 05:00 Temperature 98.2 F 97.8 F 97.9 F Pulse Rate 70 68 70 Respiratory Rate 16 16 18 Blood Pressure 123/71 130/73 122/68 Pulse Oximetry 100 100 100 Intake/Output Intake/Output: Intake & Output 05/11/21 05/12/21 05/13/21 05/14/21 23:59 23:59 23:59 23:59 Intake Total 2860 2310 3580 643 Output Total 2550 4115 3260 2240 Balance 310 -6596 320 -1597 Meds/Results Medications: Active Medications Generic Name Dose Route Start Last Admin Trade Name Freq PRN Reason Stop Dose Admin Hydrocodone Bitart/Acetaminophen 1 tab 05/06/21 19:29 05/13/21 01:55 Hydrocodone/Acetaminophen (*Crx) 5-325 Mg Tablet PO 1 tab Q3H PRN Administration Pain Rated 5 or Less [place]
[2021-05-14 11:56] VITALS: BMI 24.9
--- NOTE | 2021-05-14 12:54 | PCNSR ---
On 05/14/21, the student,Kenzie Gomez, provided care and completed [facility] documentation on this patient. I have reviewed the student's documentation and agree with the findings.
[2021-05-14 13:46] VITALS: BP 122/69; PULSE 79; RESP 18; TEMP 36.8; O2SAT 100
[2021-05-14] MEDS: IBUPROFEN IV 800 MG/200 ML 800 MG/200 ML BAG 200 MG IVPB (18:12)
[2021-05-14 20:00] VITALS: BP 114/73; PULSE 69; RESP 16; TEMP 36.5; O2SAT 100
[2021-05-14 21:00] VITALS: PULSE 69; RESP 16; O2SAT 100
[2021-05-14] MEDS: MONTELUKAST SODIUM 10 MG TABLET PO (21:17)
[2021-05-14] MEDS: LORATADINE 10 MG TABLET PO (21:17)
[2021-05-14] MEDS: ENOXAPARIN 40 MG/0.4 ML SYRINGE SUB-Q (21:17)
[2021-05-15 05:46] LABS: Hematocrit 27.5 % (37.0-47.0); Mean Corpuscular HGB Conc 32.7 g/dl (32-36); Mean Corpuscular Volume 76.4 fl (80-100); Mean Platelet Volume 9.1 fl (7.4-10.4); Platelet Count Result 527 k/mm3 (150-375); Red Cell Distribution Width 23.5 % (11.5-14.5); White Blood Count 5.4 K/mm3 (4.5-10.0)
[2021-05-15 05:58] LABS: Anion Gap 7 mmol/L (8-16); Blood Urea Nitrogen 3 mg/dL (7-17); Calcium 8.9 mg/dL (8.4-10.2); Carbon Dioxide 26 mmol/L (22-30); Chloride 106 mmol/L (98-107); Estimated CRCL calculation 75 ml/min; Estimated Glomerular Filt Rate > 60; Glucose 103 mg/dL (65-110); Potassium 3.8 mmol/L (3.4-5.0); Sodium 139 mmol/L (137-145)
[2021-05-15 06:00] VITALS: BP 111/59; PULSE 82; RESP 16; TEMP 36.4; O2SAT 100
[2021-05-15] MEDS: IBUPROFEN IV 800 MG/200 ML 800 MG/200 ML BAG 200 MG IVPB (06:04)
--- NOTE | 2021-05-15 06:52 | PM.GYNPNOP ---
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 Continue ambulation. Appreciate ongoing input from general surgery (2) Intraoperative ureteral injury: Code(s): N99.81 - Other intraoperative complications of genitourinary system Status: Acute Assessment and Plan: Doing well with nephrostomy tubes in place, which will remain in place for a few months then plan eventual ureteral reimplantation with urology Postoperative Procedures: Procedures Operation Date: 05/06/21 12:00 Actual Procedure Side Surgeon p Total Laparoscopic Hysterectomy, with Bilateral Salpingo Oophorectomy Not Applicable Opal Florence MD s Hand assist Laparoscopic Low anterior resection with low pelvic anastomosis Not Applicable Karri Ferguson DO Operation Date: 05/10/21 16:00 Actual Procedure Side Surgeon p Cystoscopy, Bilateral Retrograde Pyelogram, diagnostic ureteroscopy Left Olvin Regalado MD Operation Date: 05/11/21 14:00 Actual Procedure Side Surgeon p Radiology Procedure Moderate Sedation RN Tim Toth MD Postoperative day: 9 (s/p hysterectomy) Postoperative status: doing well and post-op ileus (resolving) Postoperative plan: routine post-op care Time Spent With Patient Time: Total time spent is greater than 50% in coordination of care (as documented) at patient's floor/unit and/or counseling patient: Time with patient: less than 15 minutes 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 She had tomato soup and cream of wheat yesterday without N/V.) and other ( + flatus, and she had another BM yesterday. 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 MILL OPERATOR - PN: Obj Data Vital Signs Vital Signs: Vital Signs - 24 hr 05/14/21 13:46 05/14/21 20:00 05/14/21 21:00 Temperature 36.8 C 36.5 C Pulse Rate 79 69 69 Respiratory Rate 18 16 16 Blood Pressure 122/69 114/73 Pulse Oximetry 100 100 100 05/15/21 06:00 Temperature 36.4 C Pulse Rate 82 Respiratory Rate 16 Blood Pressure 111/59 L Pulse Oximetry 100 Intake/Output Intake/Output: Intake & Output 05/12/21 05/13/21 05/14/21 05/15/21 23:59 23:59 23:59 23:59 Intake Total 2310 3580 1703 50 Output Total 4112 3260 6929 510 Balance -1807 918 -3622 -240 Meds/Results Medications: Active Medications Generic Name Dose Route Start Last Admin Trade Name Freq PRN Reason Stop Dose Admin Hydrocodone Bitart/Acetaminophen 1 tab 05/06/21 19:29 05/13/21 01:55 Hydrocodone/Acetaminophen (*Crx) 5-325 Mg Tablet PO 1 tab Q3H PRN Administration Pain Rated 5 or Less Hydrocodone Bitart/Acetaminophen 1 tab 05/06/21 19:29 05/12/21 04:26 Hydrocodone/Acetaminophen (*Crx) 10-325 Mg Tablet PO 1 tab Q3H PRN Administration Pain Rated 6 or Greater Albuterol 1 puff 05/06/21 19:29 Albuterol Sulfate (*Sp) Aerosol 1 Puff INHALATION Q4H PRN shortness of breath or wheezing Azelastine HCl 1 spray 05/06/21 19:29 Azelastine Hcl Nasal 0.1% 137 Mcg/Spr 30 Ml Btl NASAL Q12H PRN seasonal allergies Benzocaine 1 lozenge 05/11/21 16:54 05/11/21 23:53 Benzocaine/Menthol (*Bkc) 18 Ea Lozenge PO 1 lozenge PRN PRN Administration Sore Throat Enoxaparin Sodium
--- NOTE | 2021-05-15 09:13 | PM.PNGS ---
Progress Note: A&P Assessment and Plan (1) Ileus following gastrointestinal surgery: Code(s): K91.89 - Other postprocedural complications and disorders of digestive system; K56.7 - Ileus, unspecified Status: Acute Assessment and Plan: Resolving. Bowels continue to move and she is tolerating full liquids. Will advance her to a regular diet today. Encouraged her to continue to increase activity and walk the halls. (2) Rectal injury: Qualifiers: Encounter type: subsequent encounter Qualified Code(s): S36.60XD - Unspecified injury of rectum, subsequent encounter Code(s): S36.60XA - Unspecified injury of rectum, initial encounter Status: Acute Assessment and Plan: WBC remains normal today. Seems to be overall improving from a surgical standpoint. Pain is well-controlled. Continue to advance her diet. (3) S/P hysterectomy: Code(s): Z90.710 - Acquired absence of both cervix and uterus Status: Acute (4) Intraoperative ureteral injury: Code(s): N99.81 - Other intraoperative complications of genitourinary system Status: Acute Assessment and Plan: Left nephrostomy tube draining well. Urology following. Additional Plan I have discussed the plan of care with Dr. Jenkins. Subjective Subjective Date/Time Seen: 05/15/21 08:43 Post Op day: 9 Patient reports: no new complaints, pain is less, tolerating liquids well (fulls), flatus, bowel movement and afebrile Interval history: Patient seen today and continues to improve. Reports that she isn't having much pain other than some gas pains, which continue to improve. No nausea, vomiting, or bloating. No other complaints at this time. Review of Systems Review of Systems: All systems reviewed & are unremarkable except as noted in HPI and below Constitutional: Constitutional: Reports as per HPI, Reports no additional constitutional complaints, Denies chills and Denies fever(s) Cardiovascular: Cardiovascular: Reports no additional cardiovascular complaints, Denies chest pain and Denies leg edema Respiratory: Respiratory: Reports no additional respiratory complaints, Denies cough and Denies dyspnea Gastrointestinal: Gastrointestinal: Reports as per HPI and Reports no additional gastrointestinal complaints Exam Const: General: comfortable, no acute distress, alert and awake Orientation/consciousness: patient oriented x3 Resp: Effort & Inspection: normal respiratory effort Auscultation: clear to auscultation bilaterally Cardio: Rate: regular rate Rhythm: regular rhythm GI: Inspection: non-distended, incision (Abdominal incisions clean and dry, glue intact) and other (KASIA drain with yellow-pink drainage) GI Palp: Yes Soft to palpation, Yes Tenderness to palpation present (GI) (minimal incisional) and No Rebound tenderness present Auscultation: normal bowel sounds Other: Left nephrostomy tube draining well Neuro: General: moves all extremities and no focal motor deficits Extrem: General: no clubbing, cyanosis or edema and no calf tenderness Psych: Mental Status: mental status grossly normal Insight: Good insight present (Psych) Judgement: Good judgement present (Psych) Objective Data Vital Signs Vital Signs: Vital Signs - 24 hr 05/14/21 13:46 05/14/21 20:00 05/14/21 21:00 Temperature 98.2 F 97.7 F Pulse Rate 79 69 69 Respiratory Rate 18 16 16 Blood Pressure 122/69 114/73 Pulse Oximetry 100 100 100 05/15/21 06:00 Temperature 97.6 F Pulse Rate 82 Respiratory Rate 16 Blood Pressure 111/59 L Pulse Oximetry 100 Intake/Output Intake/Output: Intake & Output 05/12/21 05/13/21 05/14/21 05/15/21 23:59 23:59 23:59 23:59 Intake Total 2310 3580 1703 1190 Output Total 4115 3260 4920 1260 Balance -1805 320 -3217 -70 Meds/Results Medications: Active Medications Generic Name Dose Route Start Last Admin Trade Name Freq PRN Reason Stop Dose Admin Hydrocodone Bitart/Acetaminophen 1 tab
[2021-05-15] MEDS: FAMOTIDINE 20 MG TABLET PO ×2 (10:28→20:56)
[2021-05-15 12:00] VITALS: BP 143/82; PULSE 91; RESP 16; TEMP 36.7; O2SAT 100
[2021-05-15 12:30] LABS: Creatinine Urine 34.3 mg/dL
[2021-05-15 18:00] VITALS: BP 138/80; PULSE 85; RESP 16; TEMP 36.7; O2SAT 100
[2021-05-15] MEDS: LORATADINE 10 MG TABLET PO (20:56)
[2021-05-15] MEDS: MONTELUKAST SODIUM 10 MG TABLET PO (20:56)
[2021-05-15] MEDS: ENOXAPARIN 40 MG/0.4 ML SYRINGE SUB-Q (20:56)
[2021-05-15 21:00] VITALS: PULSE 78; RESP 18; O2SAT 100
[2021-05-15 21:29] VITALS: BP 114/60; PULSE 78; RESP 18; TEMP 36.6; O2SAT 100
[2021-05-16 05:12] VITALS: BP 114/66; PULSE 72; RESP 18; TEMP 36.6; O2SAT 100
--- NOTE | 2021-05-16 09:17 | WPDUROPN2 ---
Progress Note: A&P Assessment and Plan (1) Intraoperative ureteral injury: Code(s): N99.81 - Other intraoperative complications of genitourinary system Status: Acute (2) Acute kidney injury: Code(s): N17.9 - Acute kidney failure, unspecified Status: Acute Assessment and Plan: Blood creatinine is within normal range 0.80. (3) Creatinine elevation: Code(s): R79.89 - Other specified abnormal findings of blood chemistry Status: Acute Assessment and Plan: Urine creatinine is 34, will plan to leave KASIA drain in and have her follow up next week in the office for a repeat urine creatinine, if it is normal then we can remove the drain later next week. She will keep her nephrostomy tube in for 4 months. Plan was discussed with Dr. Regalado. NO further evaluation needed. Subjective Subjective Date/Time Seen: 05/16/21 09:17 Patient doing relatively well. Nephrostomy tube is draining as is her KASIA drain. Her urine creatinine from the KASIA fluid has elevated since Thursday when is was <3, it was 34 yesterday. She has no c/o any pain and is tolerating her nephrostomy tube well. Review of Systems Cardiovascular: Cardiovascular: Denies chest pain Respiratory: Respiratory: Reports no additional respiratory complaints Gastrointestinal: Gastrointestinal: Denies abdominal pain, Denies nausea and Denies vomiting Genitourinary: Genitourinary: Denies hematuria and Denies flank pain Exam Resp: Effort & Inspection: normal respiratory effort Cardio: Rate: regular rate GI: Inspection: other (KASIA drain in place, draining yellow fluid) GI Palp: Yes Soft to palpation and No Tenderness to palpation present (GI) : General: Yes no CVA tenderness Urinary Catheter: Urinary Catheter: patent and draining and urine clear Extrem: General: no edema Objective Data Vital Signs Vital Signs: Vital Signs - 24 hr 05/15/21 12:00 05/15/21 18:00 05/15/21 21:00 Temperature 98.1 F 98.0 F Pulse Rate 91 85 78 Respiratory Rate 16 16 18 Blood Pressure 143/82 H 138/80 Pulse Oximetry 100 100 100 05/15/21 21:29 05/16/21 05:12 Temperature 97.8 F 97.9 F Pulse Rate 78 72 Respiratory Rate 18 18 Blood Pressure 114/60 114/66 Pulse Oximetry 100 100 Intake/Output Intake/Output: Intake & Output 05/13/21 05/14/21 05/15/21 05/16/21 23:59 23:59 23:59 23:59 Intake Total 3580 1703 1970 340 Output Total 3260 4920 3140 445 Balance 875 -3217 -1170 -105 Meds/Results Medications: Active Medications Generic Name Dose Route Start Last Admin Trade Name Freq PRN Reason Stop Dose Admin Hydrocodone Bitart/Acetaminophen 1 tab 05/06/21 19:29 05/13/21 01:55 Hydrocodone/Acetaminophen (*Crx) 5-325 Mg Tablet PO 1 tab Q3H PRN Administration Pain Rated 5 or Less Hydrocodone Bitart/Acetaminophen 1 tab 05/06/21 19:29 05/12/21 04:26 Hydrocodone/Acetaminophen (*Crx) 10-325 Mg Tablet PO 1 tab Q3H PRN Administration Pain Rated 6 or Greater Albuterol 1 puff 05/06/21 19:29 Albuterol Sulfate (*Sp) Aerosol 1 Puff INHALATION Q4H PRN shortness of breath or wheezing Azelastine HCl 1 spray 05/06/21 19:29 Azelastine Hcl Nasal 0.1% 137 Mcg/Spr 30 Ml Btl NASAL Q12H PRN seasonal allergies Benzocaine 1 lozenge 05/11/21 16:54 05/11/21 23:53 Benzocaine/Menthol (*Bkc) 18 Ea Lozenge PO 1 lozenge PRN PRN Administration Sore Throat Enoxaparin Sodium 40 mg 05/06/21 20:00 05/15/21 20:56 Enoxaparin 40 Mg/0.4 Ml Syringe SUB-Q 40 mg Q24H DESTIN Administration Famotidine 20 mg 05/09/21 12:22 05/15/21 20:56 Famotidine 20 Mg Tablet PO 20 mg Q12HR DESTIN Administration Piperacillin/Tazobactam/Dextrose 3.375 gm in 50 mls @ 100 mls/hr 05/06/21 20:00 05/16/21 02:07 Zosyn 3.375 Gm/D5w 50ml Pm IVPB Infused Q6H DESTIN Infusion Ibuprofen 800 mg in 200 mls @ 400 mls/hr 05/12/21 17:58 05/15/21 07:04 Caldolor 800 Mg/200 Ml IVPB Infused
[2021-05-16] MEDS: FAMOTIDINE 20 MG TABLET PO (09:33)
--- NOTE | 2021-05-16 09:58 | PM.PNGS ---
Progress Note: A&P Assessment and Plan (1) Rectal injury: Qualifiers: Encounter type: subsequent encounter Qualified Code(s): S36.60XD - Unspecified injury of rectum, subsequent encounter Code(s): S36.60XA - Unspecified injury of rectum, initial encounter Status: Acute Assessment and Plan: Doing well post-op. Tolerating her diet and bowels are moving. Okay to discharge patient today from our standpoint. Will have her follow-up with Dr. Ferguson in 2 weeks. (2) Ileus following gastrointestinal surgery: Code(s): K91.89 - Other postprocedural complications and disorders of digestive system; K56.7 - Ileus, unspecified Status: Acute Assessment and Plan: Resolved. (3) S/P hysterectomy: Code(s): Z90.710 - Acquired absence of both cervix and uterus Status: Acute (4) Intraoperative ureteral injury: Code(s): N99.81 - Other intraoperative complications of genitourinary system Status: Acute Assessment and Plan: Left nephrostomy tube draining well. Urology following. Plans to leave KASIA in place for another week and f/u as an outpatient. Additional Plan Discussed plan of care with Dr. Ferguson. Subjective Subjective Date/Time Seen: 05/16/21 09:00 Post Op day: 10 Patient reports: no new complaints, tolerating a regular diet, flatus, bowel movement and afebrile Interval history: Patient feeling well today. Bowels are still moving. No complaints of pain. Tolerating activity and her diet. Review of Systems Review of Systems: All systems reviewed & are unremarkable except as noted in HPI and below Exam Const: General: comfortable and no acute distress Orientation/consciousness: patient oriented x3 GI: Inspection: non-distended, incision (Abdominal incisions clean and dry, glue intact) and other (KASIA drain with yellow drainage) Auscultation: normal bowel sounds Other: Left nephrostomy tube draining well Neuro: General: moves all extremities and no focal motor deficits Extrem: General: no calf tenderness and no edema Psych: Insight: Good insight present (Psych) Judgement: Good judgement present (Psych) Objective Data Vital Signs Vital Signs: Vital Signs - 24 hr 05/15/21 12:00 05/15/21 18:00 05/15/21 21:00 Temperature 98.1 F 98.0 F Pulse Rate 91 85 78 Respiratory Rate 16 16 18 Blood Pressure 143/82 H 138/80 Pulse Oximetry 100 100 100 05/15/21 21:29 05/16/21 05:12 Temperature 97.8 F 97.9 F Pulse Rate 78 72 Respiratory Rate 18 18 Blood Pressure 114/60 114/66 Pulse Oximetry 100 100 Intake/Output Intake/Output: Intake & Output 05/13/21 05/14/21 05/15/21 05/16/21 23:59 23:59 23:59 23:59 Intake Total 3580 1703 1970 340 Output Total 3260 4920 3140 445 Balance 320 -3217 -1170 -105 Meds/Results Medications: Active Medications Generic Name Dose Route Start Last Admin Trade Name Freq PRN Reason Stop Dose Admin Hydrocodone Bitart/Acetaminophen 1 tab 05/06/21 19:29 05/13/21 01:55 Hydrocodone/Acetaminophen (*Crx) 5-325 Mg Tablet PO 1 tab Q3H PRN Administration Pain Rated 5 or Less Hydrocodone Bitart/Acetaminophen 1 tab 05/06/21 19:29 05/12/21 04:26 Hydrocodone/Acetaminophen (*Crx) 10-325 Mg Tablet PO 1 tab Q3H PRN Administration Pain Rated 6 or Greater Albuterol 1 puff 05/06/21 19:29 Albuterol Sulfate (*Sp) Aerosol 1 Puff INHALATION Q4H PRN shortness of breath or wheezing Azelastine HCl 1 spray 05/06/21 19:29 Azelastine Hcl Nasal 0.1% 137 Mcg/Spr 30 Ml Btl NASAL Q12H PRN seasonal allergies Benzocaine 1 lozenge 05/11/21 16:54 05/11/21 23:53 Benzocaine/Menthol (*Bkc) 18 Ea Lozenge PO 1 lozenge PRN PRN Administration Sore Throat Enoxaparin Sodium 40 mg 05/06/21 20:00 05/15/21 20:56 Enoxaparin 40 Mg/0.4 Ml Syringe SUB-Q 40 mg Q24H DESTIN Administration Famotidine 20 mg 05/09/21 12:22 05/16/21 09:33 Famotidine 20 Mg Tablet PO 20 mg
[2021-05-16 12:00] VITALS: BP 134/80; PULSE 101; RESP 18; TEMP 36.6; O2SAT 100
--- NOTE | 2021-05-16 13:41 | PM.GYNPNOP ---
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 May discharge home. F/U with general surgery in 1-2 weeks (2) Intraoperative ureteral injury: Code(s): N99.81 - Other intraoperative complications of genitourinary system Status: Acute Assessment and Plan: Leave KASIA in place since she is leaking urine into her abdomen based on KASIA fluid creatinine level. Leave nephrostomy tubes in place. F/U with urology in 1 week Postoperative Procedures: Procedures Operation Date: 05/06/21 12:00 Actual Procedure Side Surgeon p Total Laparoscopic Hysterectomy, with Bilateral Salpingo Oophorectomy Not Applicable Opal Florence MD s Hand assist Laparoscopic Low anterior resection with low pelvic anastomosis Not Applicable Karri Ferguson DO Operation Date: 05/10/21 16:00 Actual Procedure Side Surgeon p Cystoscopy, Bilateral Retrograde Pyelogram, diagnostic ureteroscopy Left Olvin Regalado MD Operation Date: 05/11/21 14:00 Actual Procedure Side Surgeon p Radiology Procedure Moderate Sedation RN Tim Toth MD Postoperative day: 10 (s/p hysterectomy) Postoperative status: doing well Postoperative plan: routine post-op care and discharge (and follow up in office in 1 week with gynecology) Time Spent With Patient Time: Total time spent is greater than 50% in coordination of care (as documented) at patient's floor/unit and/or counseling patient: Time with patient: 15 - 25 minutes 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 + flatus and ongoing BMs. Voiding without problems) Exam Const: General: no acute distress Resp: Auscultation: clear to auscultation bilaterally Cardio: Rate: regular rate Rhythm: regular rhythm GI: Inspection: non-distended and incision (Intact without erythema, drainage, or induration) GI Palp: Yes abdominal tenderness (appropriate) and Yes Soft to palpation Auscultation: normoactive bowel sounds Extrem: General: no edema SILL WORKER - PN: Obj Data Vital Signs Vital Signs: Vital Signs - 24 hr 05/15/21 18:00 05/15/21 21:00 05/15/21 21:29 Temperature 36.7 C 36.6 C Pulse Rate 85 78 78 Respiratory Rate 16 18 18 Blood Pressure 138/80 114/60 Pulse Oximetry 100 100 100 05/16/21 05:12 05/16/21 12:00 Temperature 36.6 C 36.6 C Pulse Rate 72 101 H Respiratory Rate 18 18 Blood Pressure 114/66 134/80 Pulse Oximetry 100 100 Intake/Output Intake/Output: Intake & Output 05/13/21 05/14/21 05/15/21 05/16/21 23:59 23:59 23:59 23:59 Intake Total 3580 1703 1970 390 Output Total 3260 4920 3140 960 Balance 320 -3217 -1170 -570 Meds/Results Medications: Active Medications Generic Name Dose Route Start Last Admin Trade Name Freq PRN Reason Stop Dose Admin Hydrocodone Bitart/Acetaminophen 1 tab 05/06/21 19:29 05/13/21 01:55 Hydrocodone/Acetaminophen (*Crx) 5-325 Mg Tablet PO 1 tab Q3H PRN Administration Pain Rated 5 or Less Hydrocodone Bitart/Acetaminophen 1 tab 05/06/21 19:29 05/12/21 04:26 Hydrocodone/Acetaminophen (*Crx) 10-325 Mg Tablet PO 1 tab Q3H PRN Administration Pain Rated 6 or Greater Albuterol 1 puff 05/06/21 19:29 Albuterol Sulfate (*Sp) Aerosol 1 Puff INHALATION Q4H PRN shortness of breath or wheezing Azelastine HCl 1 spray 05/06/21 19:29 Azelastine Hcl Nasal 0.1% 137 Mcg/Spr 30 Ml Btl NASAL Q12H PRN seasonal allergies Benzocaine 1 lozenge 05/11/21 16:54 05/11/21 23:53 Benzocaine/Menthol (*Bkc) 18 Ea Lozenge PO 1 lozenge PRN PRN Administration Sore Throat Enoxaparin Sodium 40 mg 05/06/21 20:00 05/15/21 20:56 Silvana
--- NOTE | 2021-05-16 13:46 | PM.DS ---
DS: Admitting Diagnosis Admitting Diagnosis Admitting Diagnosis: menorrhagia, fibroids DS: Discharge Diagnosis Discharge Diagnosis (1) Menorrhagia: Code(s): N92.0 - Excessive and frequent menstruation with regular cycle Status: Acute Assessment and Plan: Treated with hysterectomy (2) Leiomyoma: Code(s): D21.9 - Benign neoplasm of connective and other soft tissue, unspecified Status: Acute Assessment and Plan: Treated with hysterectomy (3) Rectal injury: Qualifiers: Encounter type: subsequent encounter Qualified Code(s): S36.60XD - Unspecified injury of rectum, subsequent encounter Code(s): S36.60XA - Unspecified injury of rectum, initial encounter Status: Acute Assessment and Plan: Repaired directly. continue soft regular diet as tolerated. Follow up with Dr. Ferguson in 1-2 weeks (4) S/P hysterectomy: Code(s): Z90.710 - Acquired absence of both cervix and uterus Status: Acute Assessment and Plan: Follow up with Dr. Florence in 1 week (5) Ileus following gastrointestinal surgery: Code(s): K91.89 - Other postprocedural complications and disorders of digestive system; K56.7 - Ileus, unspecified Status: Acute Assessment and Plan: Resolved. F/U with general surgery (6) Intraoperative ureteral injury: Code(s): N99.81 - Other intraoperative complications of genitourinary system Status: Acute Assessment and Plan: Bilateral nephrostomy tubes in place. Continue KASIA drain per urology. Follow up with urology in 1 week, and will need ureteral repair in 3-4 months DS: Summary Hospital Course Hospital Course: Is 50 years old. She was admitted for a planned laparoscopic hysterectomy on May 06, 2021 due to fibroids menorrhagia and history of anemia. Her surgical course was complicated by an intraoperative rectal injury. Dr. Ruddy steinberg was consulted intraoperatively and performed a direct anastomosis of her colon and rectum on May 06. Her postoperative course was complicated by multiple issues. On postoperative day 1. Her creatinine level was slightly elevated at 1.2. It then 0.94 in February of 2021. She was a clear liquid diet at that point and had 4+ hour surgery and the day before. So thought was that she was dehydrated and possibly had had some acute episode with her kidney related to nonsteroidal anti-inflammatory medications. She was given extra hydration and the NSAIDs were stopped. The next day on May 08 her creatinine was elevated even more 1.8. She also seems to really be developing an ileus at this point. So she was kept on clear liquids. She never developed any significant nausea or vomiting, so decision was made to just give some time for the ileus to resolve. The next day her creatinine level was 1.7 so decreasing slightly, and on May 10 it was 1.5. Upon discussion with Dr. Madhu walker at that point, we would expect that her creatinine level to normalize by this point. Since it had not, Urology was consulted. She had an abdominal x-ray as well as a CT scan morning. The abdominal x-ray was consistent with ileus but no evidence of small-bowel obstruction. The CT scan did show hydronephrosis on left side. There was concern for a potential bladder or ureteral injury from the time of her initial surgery. She had an diagnostic surgery performed by Dr. Rivera that afternoon on ThursdayMay 10. A left ureteral transection was diagnosed based on that surgery. She then had bilateral nephrostomy tubes placed on ThursdayMay 11 by urine by radiology. Her creatinine level improved to 1.0 at 5:36 p.m. on May 11 just a couple hours after her nephrostomy tubes had been placed. On May 12 her creatinine level is 0.9. Her creatinine level was 0.8 on May 13, May 14, and May 15. She was given a trial of full liquids on ThursdayMay 14, which she tolerated well. She was advanced to regular diet start
--- NOTE | 2021-05-16 15:03 | PC.NURSE ---
Instructed patient on emptying and care of KASIA drain. Provided written instructions on same. Patient verbalized understanding of all instructions given. Instructed patient on recording output of drain every 24 hours and bringing record to office visit next week. Also instructed patient on dressing change around drain and provided drain sponges for same.
== END 2021-05-16 15:57 | disposition home or self-care (01) | DRG 908 ==
LOC: ANHOB2 07:23 → ANHSURGERY 05-08 12:53 → ANHOB2 05-10 10:20 → ANH2MED 05-10 20:02
PROVIDERS: Nurse Practitioner Adult Health; Radiology Diagnostic Radiology; Surgery; Urology; Admitting Provider Obstetrics & Gynecology; PCP Family Medicine; Visit Provider Obstetrics & Gynecology
PROC: 0UT9FZZ Resection of Uterus, Via Natural or Artificial Opening With Percutaneous Endoscopic Assistance (ICD-10-PCS; principal; 2021-05-06 12:00)
PROC: 0DBN0ZZ Excision of Sigmoid Colon, Open Approach (ICD-10-PCS; CPT 44143; 2021-05-06 12:00)
PROC: 0TJ98ZZ Inspection of Ureter, Via Natural or Artificial Opening Endoscopic (ICD-10-PCS; CPT 52352; principal; 2021-05-10 16:00)
PROC: 0T9130Z Drainage of Left Kidney with Drainage Device, Percutaneous Approach (ICD-10-PCS; principal; 2021-05-11 14:00)
DX: K91.72 Accidental puncture and laceration of a digestive system organ or structure during other procedure (principal); N13.39 Other hydronephrosis; K91.89 Other postprocedural complications and disorders of digestive system; K56.7 Ileus, unspecified; D25.1 Intramural leiomyoma of uterus; N99.0 Postprocedural (acute) (chronic) kidney failure; N99.81 Other intraoperative complications of genitourinary system; R79.89 Other specified abnormal findings of blood chemistry; N92.0 Excessive and frequent menstruation with regular cycle; Y65.8 Other specified misadventures during surgical and medical care; D64.9 Anemia, unspecified
CPT/HCPCS: 36415; 50432; 74018; 74176; 74420; 80048; 82570; 85025; 85027; 85055; 85610; 85730; 87070; 87075; 87205; 88307; 99199; A9270; C1729; C1758; C1769; J0330; J0690; J1100; J1170; J1650; J1741; J1885; J2250; J2270; J2405; J2543; J2704; J2710; J2765; J3010; J7030; J7120; J7121; Q9966

== ENCOUNTER → 2021-07-20 00:12 | Outpatient (CLI) | payer OTHER, SELFPAY ==
[2021-07-20 18:04] LABS: SARS-CoV-2 RNA PCR Positive
== END ==
PROVIDERS: PCP Family Medicine; Visit Provider Urology
DX: U07.1 COVID-19 (principal)
CPT/HCPCS: C9803; U0003; U0005

== ENCOUNTER 2021-07-30 08:05 | Outpatient (CLI) | payer OTHER, SELFPAY ==
[2021-07-23 10:54] VITALS: BMI 22.8
--- NOTE | ~2021-07-30 | XR_ITS ---
EXAMINATION: XR nephrostomy tube change DATE: 07/30/2021 10:46 INDICATION: Intraoperative left ureteral injury. TECHNIQUE: The procedure including the risks, benefits, and alternatives was discussed with the patie nt. Risks discussed included bleeding and infection. The patient understood the risks and benefits an d agreed to proceed. 1 g Ancef IV was given before the procedure. The skin overlying the left kidney was prepped and draped in usual sterile fashion. Anesthetic was administered with 1% lidocaine subc utaneously. The nephrostomy tube was cut and injected with water-soluble contrast. The catheter was e xchanged over a enymotionson wire for a new 8.5 Thai pigtail catheter. The catheter was stitched to the skin, and a dressing was applied. The urine was clear at the end of the procedure. The number of imag es was 5. Fluoroscopy exposure time was 0.9 minutes. FINDINGS: Fluoroscopy images demonstrate the new left nephrostomy tube with loop in the renal pelvis. IMPRESSION: 1. Successful fluoroscopy guided left nephrostomy tube exchange with new tube in the renal pelvis. Reviewed, dictated and finalized at location A. IMPRESSION: 1. Successful fluoroscopy guided left nephrostomy tube exchange with new tube i n the renal pelvis.
[2021-07-30 08:42] LABS: Mean Platelet Volume 9.6 fl (7.4-10.4); Platelet Count Result 399 k/mm3 (150-375)
[2021-07-30 08:54] LABS: Prothrombin Time 12.8 Seconds (11.1-14.7)
[2021-07-30 10:35] VITALS: BP 119/74; PULSE 57; RESP 16; O2SAT 100
[2021-07-30 10:50] VITALS: BP 125/62; PULSE 60; RESP 16
[2021-07-30 11:05] VITALS: BP 120/66; PULSE 66; RESP 16
== END 2021-07-30 11:30 | disposition home or self-care (01) ==
PROVIDERS: Radiology Diagnostic Radiology; PCP Family Medicine; Visit Provider Urology
DX: N99.81 Other intraoperative complications of genitourinary system (principal)
CPT/HCPCS: 36415; 50435; 85049; 85610; C1729; C1769; Q9966

== ENCOUNTER 2021-10-07 12:14 | Outpatient (CLI) | payer OTHER, SELFPAY ==
--- NOTE | ~2021-10-07 | XR_ITS ---
EXAMINATION: CYSTOGRAM DATE: 10/07/2021 13:20 INDICATION: Left ureteral injury now status post ureteral reimplantation. TECHNIQUE: Initial spare hand carding radiograph of the pelvis was performed. There was retrograde administration of Omnipaque 350 mixed with saline contrast into patient's existing vasques catheter. Fluoroscopic nathaniel ges of the abdomen and pelvis were obtained. A post-void image was also performed. A total of 18 fluo roscopic images and one spare hand carding radiograph were obtained. Fluoroscopy exposure time was 0.9 minutes. To jesus DAP was 16.089 mGycm^2 FINDINGS: Machine Heel Seat Fitter image demonstrates a left internal ureteral stent with loops formed in the expected location of the left renal pelvis and in the bladder. There is also a left percutaneous nephrostomy tube with lo op formed in the region of the left renal pelvis. Suture line in the pelvis. Subsequent images demons trate progressive filling of the bladder which demonstrates an abnormal contour likely related to the recent ureteral reimplantation. No evident extraluminal contrast extravasation. There is reflux of c ontrast into the left ureter and kidney which demonstrates persistent mild left hydroureteronephrosis . IMPRESSION: 1. Abnormal contour to the dome of the bladder consistent with given history of recent left ureteral reimplantation. No extraluminal contrast leak. 2. Left internal ureteral stent and left percutaneous nephrostomy tube, both in expected positions wi th loops formed in the left renal pelvis. 3. Mild left hydroureteronephrosis. Reviewed, dictated and finalized at location A. ER AXMINSTER IMPRESSION: 1. Abnormal contour to the dome of the bladder consistent with given history o f recent left ureteral reimplantation. No extraluminal contrast leak. 2. Left internal ureteral stent and left percutaneous nephrostomy tube, both in expected positions with loops formed in the left renal pelvis. 3. Mild left hydroureteronephrosis.
== END 2021-10-07 12:15 | disposition home or self-care (01) ==
LOC: ANHIMG 12:22
PROVIDERS: PCP Family Medicine; Visit Provider Urology
DX: N99.81 Other intraoperative complications of genitourinary system (principal)
CPT/HCPCS: 51600; 74430; Q9967

== ENCOUNTER 2021-11-04 08:15 | Outpatient (CLI) | payer OTHER, SELFPAY ==
--- NOTE | ~2021-11-04 | MM_ITS ---
EXAMINATION: MM diagnostic oral LT w ana HISTORY: Follow-up left breast mass TECHNIQUE: Additional 3-D tomosynthesis images of the left breast were performed and synthetic 2-D im ages were generated. CAD analysis was submitted and interpreted. COMPARISON: Comparison to multiple prior studies sequentially, with oldest reviewed study dated 03/13. BREAST PARENCHYMAL COMPOSITION: Breast composed of scattered areas of fibroglandular density. FINDINGS: There is a stable mass in the upper outer quadrant of the left breast without change in siz e. There are benign left breast calcifications. No new masses, calcifications or architectural distor tion. IMPRESSION: 1. Stable left mammogram. No significant change to left breast mass, upper outer quadrant, middle thi rd. 2. Follow-up targeted left breast ultrasound recommended to assess sonographic stability. BI-RADS Category 0: Incomplete: Needs additional imaging evaluation. Reviewed, dictated and finalized at location A. TH EDUCATOR IMPRESSION: 1. Stable left mammogram. No significant change to left breast mass, upper oute r quadrant, middle third. 2. Follow-up targeted left breast ultrasound recommended to assess sonographic stability. BI-RADS Category 0: Incomplete: Needs additional imaging evaluation.
== END 2021-11-04 08:16 ==
PROVIDERS: PCP Family Medicine; Visit Provider Nurse Practitioner Gerontology
DX: N63.0 Unspecified lump in unspecified breast (principal); R92.8 Other abnormal and inconclusive findings on diagnostic imaging of breast
CPT/HCPCS: 77061; 77065; G0279

== ENCOUNTER 2021-11-05 10:29 | Outpatient (CLI) | payer OTHER, SELFPAY ==
--- NOTE | ~2021-11-05 | US_ITS ---
US breast LT limited 11/05/2021 10:42 Indication: Follow-up left breast mass Procedure: High-resolution Limited ultrasound of the right breast Comparison: 04/10/2021 Findings: At 2:00, 3 cm from the nipple there is an 8 mm oval hypoechoic mass with parallel orientati on, no significant internal vascularity and no posterior features, stable since prior examination. Impression: 1: Stable likely benign left breast mass at 2:00, 3 cm from the nipple. BI-RADS CATEGORY 3-PROBABLY BENIGN FINDING RECOMMENDATION: Six-month follow-up Limited left breast ultrasound and diagnostic bilateral mammogram recommended. Reviewed, dictated and finalized at location A. ULSION ENGINEER Impression: 1: Stable likely benign left breast mass at 2:00, 3 cm from the nipple. BI-RADS CATEGORY 3-PROBABLY BENIGN FINDING RECOMMENDATION: Six-month follow-up Limited left breast ultrasound and diagnost ic bilateral mammogram recommended.
== END 2021-11-05 10:30 ==
PROVIDERS: PCP Family Medicine; Visit Provider Nurse Practitioner Gerontology
DX: N63.0 Unspecified lump in unspecified breast (principal); R92.8 Other abnormal and inconclusive findings on diagnostic imaging of breast
CPT/HCPCS: 76642

== ENCOUNTER 2022-09-16 13:01 | Emergency (ER) | payer OTHER, SELFPAY ==
--- NOTE | 2022-09-16 14:18 | ED.WOUNDLAC ---
HPI - Wound/Laceration General Chief Complaint: Wound/Laceration Stated Complaint: FINGER LACERATION Time Seen by Provider: 09/16/22 14:36 Source: patient, RN notes reviewed and old records reviewed Mode of arrival: ambulatory Limitations: no limitations History of Present Illness HPI narrative: 51-year-old female presents to the [facility] with a laceration to the palmar aspect dip joint of the right index finger. States that she was cleaning a Fridge when she sliced it on a piece of metal. Bleeding is controlled. Full range of motion. Capillary refill under 2 seconds. Sensation intact distal to injury Happened just prior to arrival Unknown last tetanus Related Data Home Medications Medication Instructions Recorded Confirmed cetirizine 10 mg tablet (Zyrtec) 10 mg PO HS 02/07/21 07/23/21 Allergies Allergy/AdvReac Type Severity Reaction Status Date / Time shellfish derived Allergy Severe Anaphylaxis Verified 03/20/22 07:59 Review of Systems Review of Systems: All systems reviewed & are unremarkable except as noted in HPI and below Constitutional: Constitutional: Reports no additional constitutional complaints, Denies chills and Denies fever(s) Eyes: Eyes: Reports no additional eye complaints ENT: Reports system reviewed and no additional complaints, except as documented Cardiovascular: Cardiovascular: Reports no additional cardiovascular complaints Respiratory: Respiratory: Reports no additional respiratory complaints Gastrointestinal: Gastrointestinal: Reports no additional gastrointestinal complaints Musculoskeletal: Musculoskeletal: Reports no additional musculoskeletal complaints Integumentary/Breasts: Skin/Breast: Reports as per HPI and Reports wounds Neurologic: Reports system reviewed and no additional complaints, except as documented Psychiatric: Psychiatric: Reports no additional psychiatric complaints Allergic/Immunologic: Allergic/Immunologic: Reports no additional allergic/immunologic complaints [facility] Past Medical History Medical History x1 Allergic asthma Anemia 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 Fibroids, intramural Migraine Vaginal delivery x1 Surgical History Surgical History H/O total hysterectomy with bilateral salpingo-oophorectomy (BSO) 05/06/21 History of colon resection 05/06/21 Hand assisted laparoscopic low anterior resection with low pelvic anastomosis [place] teeth extracted 2015 Family History Family History Mother Acute myocardial infarction Hypertension Asthma Heart problem Father Family history of malignant neoplasm Patient's father is Cerebrovascular accident Heart disease Hypertension Sibling Diabetes mellitus Heart problem Daughter Asthma Grandparent Diabetes mellitus Hypertension Heart problem Social History Social History Social History: Smoking status: Never smoker Second hand tobacco smoke exposure: No Alcohol intake: current Alcohol use details: seldomly 6-7 per year maybe Substance use: never Substance use type: does not use Gender identity (if verbalized by the patient): Female Sexual Orientation (if Verbalized by the Patient): Straight or Heterosexual Spiritual care concerns: No Comments At the time of my signature, I reviewed and agree with the nursing past medical, surgical, social, and family history. There is no relevant family history pertinent to the patient complaint. Exam Const: General: healthy appearing, comfortable, no acute distress, well developed, alert and well nourished Nutritional Appearance: well nourished Orientation/consciousness: patient oriented x3 Limitations: no limitations HENMT:
[2022-09-16 14:35] VITALS: BP 131/79; PULSE 70; RESP 16; TEMP 36.3; O2SAT 100
[2022-09-16] MEDS: TETANUS,DIPHTHERIA,AC PERTUSSIS ADULT (0.5 ML) BOOSTRIX IM (14:47)
== END 2022-09-16 15:15 | disposition home or self-care (01) ==
PROVIDERS: Emergency Provider Nurse Practitioner; PCP Family Medicine
DX: S61.210A Laceration without foreign body of right index finger without damage to nail, initial encounter (principal); Z23 Encounter for immunization; W26.8XXA Contact with other sharp object(s), not elsewhere classified, initial encounter
CPT/HCPCS: 12001; 90471; 90715; 99213; G0463

== ENCOUNTER 2024-12-17 18:50 | Emergency (ER) | payer OTHER, SELFPAY ==
[2024-12-17 18:58] VITALS: BP 111/64; PULSE 65; RESP 16; TEMP 36; O2SAT 99
--- NOTE | 2024-12-17 18:58 | ED.SKABFB ---
HPI - Skin/Abscess/Foreign Bdy General Chief complaint: Skin/Abscess/Foreign Body Stated complaint: rash on hands Time Seen by Provider: 12/17/24 18:58 Source: patient Mode of arrival: ambulatory Limitations: no limitations History of Present Illness HPI narrative: 55 yo F presents with c/o itchy red bumps to both hands. States she woke up with them today. Concerned she has scabies. All systems reviewed and negative except as noted above. Related Data Home Medications ?Medication ?Instructions ?Recorded ?Confirmed ?Last Taken ?Type cetirizine 10 mg tablet (Zyrtec) 10 mg PO HS 02/07/21 12/17/24 Unknown History Allergies Allergy/AdvReac Type Severity Reaction Status Date / Time shellfish derived Allergy Severe Anaphylaxis Verified 12/17/24 18:52 Review of Systems Review of Systems: CONSTITUTIONAL: Denies fever, chills, or sweats. EYES: Denies visual changes, redness, or discharge. ENT: Denies rhinorrhea, congestion, sore throat, or otalgia. CARDIOVASCULAR: Denies chest pain, palpitations, or edema. RESPIRATORY: Denies cough or dyspnea. GASTROINTESTINAL: Denies abdominal pain, nausea, vomiting, or diarrhea. GENITOURINARY: Denies dysuria or hematuria. SKIN: Reports red bumps to bilateral hands with itching MUSCULOSKELETAL: Denies back pain, joint pain, or myalgia. NEUROLOGIC: Denies headache, numbness, or weakness. PSYCHIATRIC: Denies anxiety or depression. All other systems reviewed are negative, except as documented in HPI. [facility] Past Medical History Medical History x1 Allergic asthma Anemia De Quervain's disease (radial styloid tenosynovitis) right forearm Fibroids, intramural Migraine Vaginal delivery x1 Surgical History Surgical History H/O total hysterectomy with bilateral salpingo-oophorectomy (BSO) 05/06/21 History of colon resection 05/06/21 Hand assisted laparoscopic low anterior resection with low pelvic anastomosis [place] teeth extracted 2015 Family History Family History Mother Acute myocardial infarction Hypertension Asthma Heart problem Father Family history of malignant neoplasm Patient's father is Cerebrovascular accident Heart disease Hypertension Sibling Diabetes mellitus Heart problem Daughter Asthma Grandparent Diabetes mellitus Hypertension Heart problem Social History Social History (Updated 08/23/24 @ 14:00 by Chantel Persaud [facility]) Social History: Smoking status: Never smoker Second hand tobacco smoke exposure: No Alcohol intake: current Alcohol use details: Occasionally Substance use: never Substance use type: does not use Do You Feel Safe in your Home?: Yes Lack of Transportation: No Lack of Food: Never True Current Housing: I Have Housing Concerned About Future Housing: No Difficulty Paying Gas/Electric Bills: No Difficulty Paying for Meds: No Currently Unemployed: No Education: High School Diploma/GED Difficulty w/ Childcare or Family Care: No Living arrangements: with family 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 There is no relevant family history pertinent to the presenting complaint. Exam Narrative: GENERAL: This is a well-nourished, well-developed patient, in no apparent distress. HEAD: normocephalic, atraumatic. EYES: PERRL. Sclera clear/white. Vision is grossly intact. EARS: External ears normal NOSE: External nose normal NECK: Neck supple, non-tender without lymphadenopathy, masses or thyromegaly. CARDIOVASCULAR: Regular rate and rhythm without murmurs, gallops, or rubs. RESPIRATORY: Clear to auscultation. Breath sounds equal bilaterally. No wheezes, rales, or rhonchi. SKIN: warm, Dry, intact. erythematous vesicular lesions to palmar and linear aspects hands and fingers. NEURO: awake, alert, and oriented to person, place and time. There were no obvious focal neurologic abnormalities. EXTREMITIES: No joint tenderness, effusion, or edema noted. Course Course Level of Care: Express Care Visit Vital Signs Vital signs: Reviewed MDM - Skin/Abscess/Foreign Bdy MDM Narrative Medical decision making narrative: Please be advised this is a medical document. It is intended for [id number] communication. It is written in medical language and may contain unfamiliar abbreviations or verbiage. Medical documents are intended to carry relevant information, facts as evident, and the clinical opinion of the practitioner at the time of the encounter. This report may have been done utilizing a voice recognition system. Attempts have been made to correct errors. However, there may be uncorrected grammatical, spelling, and recognition errors present. The file time of this note does not necessarily represent the time of service. Differential Diagnosis Differential diagnosis: Likely viral exanthem, urticaria, allergic reaction to drug, eczema and contact dermatitis Discharge Plan Discharge Clinical Impression: Dyshidrotic eczema Patient Disposition: Home, Self-Care Condition: Stable Instructions: Dyshidrotic Eczema (ED) Additional Instructions: Apply triamcinolone cream 2 to 3 times a day sparingly to affected area. Use a moisturizer daily such as Aquaphor. Take a daily antihistamine such as Claritin or Zyrtec. Patient Language: Irish Prescriptions: New triamcinolone acetonide 0.1 % cream 1 applic topical TID PRN (Reason: eczema) Qty: 80 0RF methylprednisolone [Medrol (Fernando)] 4 mg tablets,dose pack See Rx Instructions PO .COMPLEX Qty: 21 0RF Rx Instructions: orally per package directions No Action fluticasone propionate 50 mcg/actuation spray,suspension 1 spray intranasal DAILY Qty: 16 0RF Rx Instructions: administer into each nostril albuterol sulfate [ProAir HFA] 90 mcg/actuation HFA aerosol inhaler 1 inh inhalation Q4H PRN (Reason: shortness of breath or wheezing) Qty: 8.5 3RF [place] 45 mg tablet 45 mg PO DAILY Qty: 30 2RF cetirizine [Zyrtec] 10 mg tablet 10 mg PO HS montelukast 10 mg tablet See Rx Instructions .ROUTE .COMPLEX Qty: 90 2RF Dose Instruction: TAKE 1 TABLET BY MOUTH EVERYDAY AT BEDTIME Rx Instructions: TAKE 1 TABLET BY MOUTH EVERYDAY AT BEDTIME Follow-up/Referrals: Emir,Anamika Howard MD [Primary Care Provider] - Time of Disposition: 19:05
== END 2024-12-17 19:12 | disposition home or self-care (01) ==
PROVIDERS: Emergency Provider Nurse Practitioner Family; PCP Family Medicine
DX: L30.1 Dyshidrosis [pompholyx] (principal); J45.909 Unspecified asthma, uncomplicated
CPT/HCPCS: 99213; G0463